=== PATIENT | male | born 1965 | race Caucasian/White ===

== ENCOUNTER → 2017-08-28 | Outpatient (CLI) | payer MEDICARE, OTHER ==
[2017-08-27 15:56] VITALS: BMI 30.4
[2017-08-28 13:49] VITALS: BP 133/86; PULSE 74
--- NOTE | 2017-08-28 14:16 | P.PN ---
Progress Note - Text Progress Note Date: 08/28/17 Patient returns for followup for chronic back pain with radiation in right buttock and RLE. Patient underwent R lumbar RFA in 2011 with 80% relief of his back pain for > 2 years and returns for possible repeat procedure. He indicates that the pain is worst in his right buttock with some radiation down RLE but mostly stopping above the right knee posteriorly. Patient continues on no regular medications for pain. Patient denies adverse drug effects from medications. Today, pt denies new-onset weakness, bowel/bladder incontinence, or any other signs or symptoms of cauda equina syndrome. There are no signs of acute intoxication, and no indications of medication diversion or overuse. In addition to above, 13-point review of systems is also negative for chest pain , shortness of breath, changes in vision, changes in hearing, new onset weakness , abdominal pain, diarrhea, extreme fatigue, malaise, fever, skin changes, homicidal or suicidal ideation, or bowel or bladder incontinence. Vital Signs: Reviewed in EMR Gen: WDWN, AAOx3, NAD HEENT: NCAT, EOMI, hearing grossly normal Pulm: resp unlabored Abd: soft, NT, ND Neck: supple, trachea midline ROM in flexion lumbar spine: reduced ROM in extension lumbar spine: reduced Lumbar paravertebral tenderness: + Facet loading: + bilateral, R >> L SI joint tenderness: + R side Maximiliano's test: + R side Straight leg raise: neg Neuro: CN II-XII grossly intact, muscle strength lower extremities PRESERVED Imaging: Reviewed in EMR Assessment: 1. lumbar spondylosis without myelopathy 2. AML, in remission 3. 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 chronic pain syndrome Plan: 1. Explanation: Opioid and psychological risk scores were reviewed. Diagnoses , prognoses, and multiple treatment options including but not limited to physical therapy, interventional therapies, adjuvant medical therapies, narcotic medication therapies, and surgery were discussed with the patient and all questions were answered to the patient's satisfaction. 2. Opioid agreement: no opioids prescribed today 3. Counseling: The patient was counseled extensively on SMOKING CESSATION, BODY MASS INDEX, EXERCISE. Specifically, the patient was instructed regarding the importance of smoking cessation, weight control, and exercise in the context of both chronic pain and overall health. 4. Procedures: R lumbar RFA L3-S1 JONNIE 5. Consultations: None 6. Investigations: None 7. Medications: none prescribed 8. Disposition: f/u for procedure as scheduled PQRS measures: 1-Patient's medications are documented in the chart. 2-Tobacco use is negative 3-Patient has not had a pneumococcal vaccine. 4-Advanced care planning discussed, patient unable to give. 5-Opioid contract NOT signed with the patient. 6-Pain positive, follow-up visit or procedure scheduled 7-Patient's blood pressure measured and documented, and patient will follow up with the primary care due to hypertension. 8-Patient's weight was measured, and body mass index ABOVE the normal limits, and counseling was done. Patient instructed to follow up with PCP. 9-Patient WAS NOT identified as an unhealthy alcohol user.
== END | disposition home or self-care (01) ==
LOC: PNWHC3 13:28
PROVIDERS: ATTEND Anesthesiology
DX: M47.816 Spondylosis without myelopathy or radiculopathy, lumbar region (principal); C92.01 Acute myeloblastic leukemia, in remission; G89.4 Chronic pain syndrome; G62.9 Polyneuropathy, unspecified
CPT/HCPCS: 99211

== ENCOUNTER → 2017-09-27 | Outpatient (CLI) | payer MEDICARE, OTHER ==
[2017-09-27 07:47] LABS: HCT 44.3 % (39.0-53.0); HGB 15.2 gm/dL (13.0-17.5); MCH 30.3 pg (25.0-35.0); MCHC 34.3 g/dL (31.0-37.0); MCV 88.5 fL (80.0-100.0); Mean Platelet Volume 6.7; Platelet Count 203 k/uL (150-450); RBC 5.01 m/uL (4.30-5.90); RDW 13.1 % (11.5-15.5); WBC 6.1 k/uL (3.8-10.6)
[2017-09-27 09:19] LABS: ALT 46 U/L (21-72); AST 16 U/L (17-59); Albumin 4.2 g/dL (3.5-5.0); Alkaline Phosphatase 75 U/L (38-126); Anion Gap 8 mmol/L; Blood Urea Nitrogen 17 mg/dL (9-20); Calcium 9.4 mg/dL (8.4-10.2); Carbon Dioxide 32 mmol/L (22-30); Chloride 103 mmol/L (98-107); Cholesterol 146 mg/dL (<200); Glucose 109 mg/dL (74-99); HDL Cholesterol 49 mg/dL (40-60); LDL Cholesterol,Calculated 76 mg/dL (0-99); Potassium 4.6 mmol/L (3.5-5.1); Sodium 143 mmol/L (137-145); Total Bilirubin 0.4 mg/dL (0.2-1.3); Total Protein 6.7 g/dL (6.3-8.2); Triglycerides 104 mg/dL (<150)
[2017-09-27 09:46] LABS: Prostate Specific Antigen 0.52 ng/mL (0.00-4.00)
== END | disposition home or self-care (01) ==
LOC: LABWHC1 07:20
PROVIDERS: ATTEND Family Medicine
DX: Z00.01 Encounter for general adult medical examination with abnormal findings (principal)
CPT/HCPCS: 36415; 80053; 80061; 84153; 85027

== ENCOUNTER 2017-10-08 11:16 | Emergency (ER) | payer MEDICARE, OTHER ==
--- NOTE | 2017-10-08 11:35 | ED ---
General Adult HPI - General Chief complaint: Chest Pain Stated complaint: Chest Pain Time Seen by Provider: 10/08/17 11:26 Source: patient, family, RN notes reviewed, old records reviewed Mode of arrival: wheelchair Limitations: physical limitation - History of Present Illness Initial comments: This is a 52-year-old male to the ER for evaluation. Patient's complaint for back pain. Patient's sent to ER status post anesthesia, patient did have anesthesia for back pain earlier today, he was given Versed and fentanyl, he began x-rays bradycardia heart palpitations. No pain chest pain. - Related Data Home Medications Medication Instructions Recorded Confirmed Cyclobenzaprine [Flexeril] 10 mg PO HS PRN 09/18/14 10/08/17 Omeprazole [PriLOSEC] 20 mg PO BID 09/18/14 10/08/17 Cholecalciferol [Vitamin D3] 5,000 unit PO QAM 02/06/15 10/08/17 Lisinopril [Zestril] 10 mg PO QAM 04/12/15 10/08/17 ALPRAZolam [Xanax] 0.5 mg PO BID PRN 08/27/15 10/08/17 Gabapentin [Neurontin] 300 mg PO BID 08/27/15 10/08/17 amLODIPine [Norvasc] 10 mg PO QAM 08/27/15 10/08/17 Furosemide [Lasix] 20 mg PO QAM PRN 12/04/15 10/08/17 Ibuprofen [Motrin] 600 mg PO TID PRN 12/04/15 10/08/17 Acetaminophen with Codeine 1 tab PO Q6HR PRN 08/27/17 10/08/17 [Tylenol w/codeine #3] Naproxen Sodium [Aleve] 440 mg PO DAILY 08/27/17 10/08/17 Hydrocodone/Acetaminophen [[place] 1 tab PO Q4HR PRN 10/08/17 10/08/17 5-325] Allergies Allergy/AdvReac Type Severity Reaction Status Date / Time Penicillins Allergy Severe Rash/Hives, Verified 10/08/17 11:25 Nausea moxifloxacin HCl AdvReac Intermediate Nausea Verified 10/08/17 11:25 [From Avelox] cephalexin monohydrate AdvReac c-diff Verified 10/08/17 11:25 [From Keflex] MOLD AdvReac Severe Dyspnea, Uncoded 10/08/17 11:23 Watery Eyes, Runny Nose mushroom AdvReac Dyspnea Uncoded 10/08/17 11:23 Review of Systems ROS Statement: Those systems with pertinent positive or pertinent negative responses have been documented in the HPI. ROS Other: All systems not noted in ROS Statement are negative. Past Medical History Past Medical History: Cancer, GERD/Reflux, Hyperlipidemia, Hypertension, Myocardial Infarction ([place]), Osteoarthritis (OA) Additional Past Medical History / Comment(s): migraines, heart murmer from , pain in rt hip and down leg, lower legs and and ankles sensitive to touch, neuropathy rt left and foot, AML/APL leukemia, c-diff x 2 (approx 2014) Last Myocardial Infarction Date:: 2009 History of Any Multi-Drug Resistant Organisms: None Reported Date of last positivie culture/infection: 02/20/2013 MDRO Source:: stool Past Surgical History: Back Surgery, Cholecystectomy, Orthopedic Surgery Additional Past Surgical History / Comment(s): PICC line/removed, bone marrow biopsy X 5, sinus surgery x 2, pilonidal cyst, rt shoulder rotator cuff, burak foot surgery, port right upper chest/later removed, Rt knee arthroscopy x 2 Past Anesthesia/Blood Transfusion Reactions: No Reported Reaction Past Psychological History: Anxiety Smoking Status: Former smoker Past Alcohol Use History: None Reported Past Drug Use History: None Reported - Past Family History Mother Family Medical History: Cancer Father Family Medical History: Coronary Artery Disease (CAD), Diabetes Mellitus General Exam Limitations: physical limitation General appearance: alert, in no apparent distress Head exam: Present: atraumatic, normocephalic, normal inspection Eye exam: Present: normal appearance, PERRL, EOMI. Absent: scleral icterus, conjunctival injection, periorbital swelling ENT exam: Present: normal exam, mucous membranes moist Neck exam: Present: normal inspection. Absent: tenderness, meningismus, lymphadenopathy Respiratory exam: Present: normal lung sounds bilaterally. Absent: respiratory distress, wheezes, rales, rhonchi, stridor Cardiovascular Exam: Present: regular rate, normal rhythm, normal heart sounds. Absent: systolic murmur, diastolic murmur, rubs, gallop, clicks GI/Abdominal exam: Present: soft, normal bowel sounds. Absent: distended, tenderness, guarding, rebound, rigid Extremities exam: Present: normal inspection, full ROM, normal capillary refill. Absent: tenderness, pedal edema, joint swelling, calf tenderness Back exam: Present: normal inspection Neurological exam: Present: alert, oriented X3, CN II-XII intact Psychiatric exam: Present: normal affect, normal mood Skin exam: Present: warm, dry, intact, normal color. Absent: rash Course Vital Signs 10/08/17 10/08/17 11:19 13:08 Temperature 96.9 F L Pulse Rate 60 92 Respiratory 18 17 Rate Blood Pressure 122/76 132/82 O2 Sat by Pulse 97 98 Oximetry - Reevaluation(s) Reevaluation #1: 10/08/17 11:34 Spoke with patient's anesthesiologist, aware of events surrounding patient's symptoms, bradycardia Reevaluation #2: 10/08/17 11:34 In speaking with patient at this point he does feel improved, heart rate is improving EKG Findings - EKG Comments: EKG Findings:: EKG shows sinus bradycardia rate of 59, CT 182, QRS 80, QTC 421 Medical Decision Making - Medical Decision Making 52 male the ER for evaluation. Patient's presenting with bradycardia secondary to medication, patient had chest pain as well, EKG troponin negative, heart rate in the 90s, patient can be discharged home - Lab Data Result diagrams: 10/08/17 11:30 10/08/17 11:30 Lab Results 10/08/17 10/08/17 10/08/17 Range/Units 11:30 11:30 11:30 WBC 5.6 (3.8-10.6) k/uL RBC 4.80 (4.30-5.90) m/uL Hgb 14.5 (13.0-17.5) gm/dL Hct 41.5 (39.0-53.0) % MCV 86.5 (80.0-100.0) fL MCH 30.2 (25.0-35.0) pg MCHC 34.8 (31.0-37.0) g/dL RDW 13.0 (11.5-15.5) % Plt Count 231 (150-450) k/uL Neutrophils % 59 % Lymphocytes % 34 % Monocytes % 5 % Eosinophils % 1 % Basophils % 1 % Neutrophils # 3.3 (1.3-7.7) k/uL Lymphocytes # 1.9 (1.0-4.8) k/uL Monocytes # 0.3 (0-1.0) k/uL Eosinophils # 0.1 (0-0.7) k/uL Basophils # 0.0 (0-0.2) k/uL PT (9.0-12.0) sec INR (<1.2) APTT (22.0-30.0) sec Sodium 142 (137-145) mmol/L Potassium 3.9 (3.5-5.1) mmol/L Chloride 106 (98-107) mmol/L Carbon Dioxide 26 (22-30) mmol/L Anion Gap 10 mmol/L BUN 19 (9-20) mg/dL Creatinine 0.87 (0.66-1.25) mg/dL Est GFR (MDRD) Af Amer >60 (>60 ml/min/1.73 sqM) Est GFR (MDRD) Non-Af >60 (>60 ml/min/1.73 sqM) Glucose 98 (74-99) mg/dL Calcium 9.2 (8.4-10.2) mg/dL Magnesium 1.8 (1.6-2.3) mg/dL Total Bilirubin 0.7 (0.2-1.3) mg/dL AST 24 (17-59) U/L ALT 29 (21-72) U/L Alkaline Phosphatase 84 (38-126) U/L Total Creatine Kinase 266 H (55-170) U/L CK-MB (CK-2) 1.7 (0.0-2.4) ng/mL CK-MB (CK-2) Rel Index 0.6 Troponin I <0.012 (0.000-0.034) ng/mL Total Protein 6.2 L (6.3-8.2) g/dL Albumin 3.9 (3.5-5.0) g/dL Lipase 131 (23-300) U/L TSH 2.490 (0.465-4.680) mIU/L 10/08/17 Range/Units 12:48 WBC (3.8-10.6) k/uL RBC (4.30-5.90) m/uL Hgb (13.0-17.5) gm/dL Hct (39.0-53.0) % MCV (80.0-100.0) fL MCH (25.0-35.0) pg MCHC (31.0-37.0) g/dL RDW (11.5-15.5) % Plt Count (150-450) k/uL Neutrophils % % Lymphocytes % % Monocytes % % Eosinophils % % Basophils % % Neutrophils # (1.3-7.7) k/uL Lymphocytes # (1.0-4.8) k/uL Monocytes # (0-1.0) k/uL Eosinophils # (0-0.7) k/uL Basophils # (0-0.2) k/uL PT 10.0 (9.0-12.0) sec INR 1.0 (<1.2) APTT 21.8 L (22.0-30.0) sec Sodium (137-145) mmol/L Potassium (3.5-5.1) mmol/L Chloride (98-107) mmol/L Carbon Dioxide (22-30) mmol/L Anion Gap mmol/L BUN (9-20) mg/dL Creatinine (0.66-1.25) mg/dL Est GFR (MDRD) Af Amer (>60 ml/min/1.73 sqM) Est GFR (MDRD) Non-Af (>60 ml/min/1.73 sqM) Glucose (74-99) mg/dL Calcium (8.4-10.2) mg/dL Magnesium (1.6-2.3) mg/dL Total Bilirubin (0.2-1.3) mg/dL AST (17-59) U/L ALT (21-72) U/L Alkaline Phosphatase (38-126) U/L Total Creatine Kinase (55-170) U/L CK-MB (CK-2) (0.0-2.4) ng/mL CK-MB (CK-2) Rel Index Troponin I (0.000-0.034) ng/mL Total Protein (6.3-8.2) g/dL Albumin (3.5-5.0) g/dL Lipase (23-300) U/L TSH (0.465-4.680) mIU/L - Radiology Data Radiology results: report reviewed (Chest x-ray is negative for acute disease), image reviewed Disposition Clinical Impression: Chest pain, Bradycardia Disposition: HOME SELF-CARE Condition: Good Instructions: Chest Pain (ED) Referrals: José Luis Posey MD [Primary Care Provider] - 1-2 days
[2017-10-08 12:13] LABS: ALT 29 U/L (21-72); AST 24 U/L (17-59); Albumin 3.9 g/dL (3.5-5.0); Alkaline Phosphatase 84 U/L (38-126); Anion Gap 10 mmol/L; Blood Urea Nitrogen 19 mg/dL (9-20); Calcium 9.2 mg/dL (8.4-10.2); Carbon Dioxide 26 mmol/L (22-30); Chloride 106 mmol/L (98-107); Glucose 98 mg/dL (74-99); Lipase 131 U/L (23-300); Magnesium 1.8 mg/dL (1.6-2.3); Potassium 3.9 mmol/L (3.5-5.1); Sodium 142 mmol/L (137-145); Total Bilirubin 0.7 mg/dL (0.2-1.3); Total Protein 6.2 g/dL (6.3-8.2)
[2017-10-08 12:20] LABS: Basophils % (A) 1 %; Eosinophils # (A) 0.1 k/uL (0-0.7); Eosinophils % (A) 1 %; HCT 41.5 % (39.0-53.0); HGB 14.5 gm/dL (13.0-17.5); Lymphocytes # (A) 1.9 k/uL (1.0-4.8); Lymphocytes % (A) 34 %; MCH 30.2 pg (25.0-35.0); MCHC 34.8 g/dL (31.0-37.0); MCV 86.5 fL (80.0-100.0); Mean Platelet Volume 6.4; Monocytes # (A) 0.3 k/uL (0-1.0); Monocytes % (A) 5 %; Neutrophils # (A) 3.3 k/uL (1.3-7.7); Neutrophils % (A) 59 %; Platelet Count 231 k/uL (150-450); WBC 5.6 k/uL (3.8-10.6)
[2017-10-08 12:27] LABS: Creatine Kinase 266 U/L (55-170)
[2017-10-08 12:38] LABS: Creatine Kinase MB 1.7 ng/mL (0.0-2.4); Troponin I <0.012 ng/mL (0.000-0.034)
[2017-10-08 13:27] LABS: Partial Thromboplastin Time 21.8 sec (22.0-30.0)
[2017-10-08] MEDS ORDERED: MORPHINE SULFATE 2 MG/ML SYRINGE IVP ONE (14:11)
[2017-10-08 14:39] VITALS: BP 134/73; PULSE 91; RESP 16; TEMP 97.9
--- NOTE | 2017-10-08 15:22 | XR ---
EXAMINATION TYPE: XR chest 2V DATE OF EXAM: 10/08/2017 COMPARISON: 08/27/2015 HISTORY: Bradycardia. TECHNIQUE: Frontal and lateral views of the chest are obtained. FINDINGS: There is no focal air space opacity, pleural effusion, or pneumothorax seen. The cardiac silhouette size is within normal limits. The osseous structures are intact. Mild multilevel degener ative changes of the thoracic spine are noted. IMPRESSION: No acute cardiopulmonary process.
== END 2017-10-08 14:57 | disposition home or self-care (01) ==
LOC: EC 11:16
DX: R07.9 Chest pain, unspecified (principal); R00.1 Bradycardia, unspecified; I10 Essential (primary) hypertension; I25.2 Old myocardial infarction; M19.90 Unspecified osteoarthritis, unspecified site; K21.9 Gastro-esophageal reflux disease without esophagitis; Z85.6 Personal history of leukemia; Z87.891 Personal history of nicotine dependence; Z88.0 Allergy status to penicillin; Z91.018 Allergy to other foods; Z91.09 Other allergy status, other than to drugs and biological substances; Z88.1 Allergy status to other antibiotic agents; Z79.1 Long term (current) use of non-steroidal anti-inflammatories (NSAID); Z79.899 Other long term (current) drug therapy
CPT/HCPCS: 36415; 93005; 80053; 82550; 82553; 83690; 83735; 84443; 84484; 85025; 85610; 85730; 71046; 99285; 96374; J2270; 64635; 64636; 99152

== ENCOUNTER → 2017-10-08 | Day surgery (SDC) | payer MEDICARE, OTHER ==
[~2017-10-08] MED LIST: IV FLUID CONTINUATION 1,000 ML IV ONE; LACTATED RINGERS 1,000 ML IV SCH; LIDOCAINE 1% 20 ML VIAL (10MG/ML) FOR IV START INTRADERMA ONE; ePHEDrine 50 MG/ML 1 ML AMP IVP ONE
[2017-10-08 09:15] VITALS: TEMP 97.8
--- NOTE | 2017-10-08 10:03 | P.PCN ---
Date of Procedure: 10/08/17 Surgeon: Feliciano Lynn Pathology: none sent Condition: stable Disposition: PACU Description of Procedure: PREOPERATIVE DIAGNOSIS: Lumbar spondylosis without myelopathy and facet arthropathy POSTOPERATIVE DIAGNOSIS: Lumbar spondylosis without myelopathy and facet arthropathy PROCEDURES: Right Radiofrequency thermocoagulation, L3-L4, L4-L5, and L5-S1 medial branch, with fluoroscopic guidance. ANESTHESIA: 1% lidocaine plain; Conscious sedation with versed/fentanyl EBL: Minimal PROCEDURE INDICATION: The patient with low back pain secondary to lumbar arthropathy who had more than 50% relief of pain with previous diagnostic lumbar medial branch block with bupivacaine. Patient presents for RFA today; no use of blood thinners. PROCEDURE DESCRIPTION / TECHNIQUE: The patient was seen and identified in the preoperative area. Risks, benefits, complications, and alternatives were discussed with the patient (including but not limited to incomplete pain relief , bleeding, infection, nerve damage, and allergies to medications), the patient agreed to proceed with the procedure and signed the consent after all questions were answered. Patient was taken to the OR and time out was completed to verify proper patient , position, laterality of pain, and allergies. Pt was placed in the prone position. IV was started. Vital signs remained stable throughout the procedure. A pillow was placed under the patients chest to decrease lordosis. The lumbosacral area was prepped and draped in the usual sterile fashion. Vital signs were closely monitored during the procedure. Conscious sedation was used during the procedure to decrease patients anxiety. Using AP and then oblique fluoroscopy, the eye of the Adria dog corresponding to the connection between the superior and transverse articular processes of right L3, L4, L5 and top of the sacrum were identified, marked, and localized with 1% lidocaine. Subsequently, a 20 gauge, 100-mm radiofrequency cannula with a 10-mm active tip was advanced guided by fluoroscopy to each of the eyes of the Adria dog at the levels of all four medial branches. Each site then underwent sensory testing at 50 Hz and 0 to 1 volt and motor testing at 2 Hz and 0 to 3 volt with local stimulation, but no radicular symptoms down the legs. Thereafter all four medial branch sites underwent radiofrequency thermocoagulation at 80 degrees Celsius for 90 seconds after injecting 0.5 ml of PF lidocaine 1%. After thermocoagulation, 1 ml of the block solution containing Kenalog 40 mg and 2 mL of preservative-free normal saline was injected at all four medial branch levels after negative aspiration of CSF and blood and with no paresthesias. Cannulas were retracted while injecting lidocaine 1% until the needles were removed. At the end of the procedure, the skin was cleansed and bandages were applied. COMPLICATIONS: No acute complications. DISPOSITION / PLANS: The patient was placed in a supine position and transferred to the recovery area in a stable condition for observation and was discharged from the recovery room after meeting discharge criteria. Home discharge instructions given to the patient by the staff. The patient was reexamined prior to discharge. The patient will schedule a follow up in the clinic in 2-4 weeks to discuss left sided RFA vs. SIJ injection.
[2017-10-08 10:32] VITALS: PULSE 65
[2017-10-08 11:05] VITALS: BP 107/71; RESP 16
--- NOTE | 2017-10-08 11:12 | P.PN ---
Progress Note - Text Progress Note Date: 10/08/17 At the end of the procedure, patient was complaining of mild chest pain 5/10, that improved when he moved from procedure table to hospital stretcher. He noted that he had history of a mild DC in 2009 and has had chest pain "on and off" again since then, and this was confirmed by his . 12-lead EKG ordered. In recovery room, patient became diaphoretic, cold, clammy, and lethargic. EKG showed marked sinus bradycardia, HR 42. NIBP 86/52. Patient placed in trendelenburg position and 10 mg IV ephedrine administered. BP improved to 107/71. Patient will be transferred to ER for further management, physician-physician report given by myself.
--- NOTE | 2017-10-08 13:49 | FL ---
Fluoroscopy HISTORY: Pain 6 seconds fluoroscopy time supplied to the referring clinician. 3 intraoperative C-arm images docume nt the procedure. See dictated report from anesthesia.
== END ==
LOC: ORPAIN 08:45
PROVIDERS: ATTEND Anesthesiology
DX: G89.29 Other chronic pain (principal); M47.816 Spondylosis without myelopathy or radiculopathy, lumbar region; I10 Essential (primary) hypertension; F41.9 Anxiety disorder, unspecified; K21.9 Gastro-esophageal reflux disease without esophagitis; I25.2 Old myocardial infarction; R00.1 Bradycardia, unspecified; Z88.1 Allergy status to other antibiotic agents; Z88.0 Allergy status to penicillin; Z91.018 Allergy to other foods; Z91.09 Other allergy status, other than to drugs and biological substances
CPT/HCPCS: 93005; 64635; 64636 ×2; J2250; J3301; J3010; 99152

== ENCOUNTER 2017-11-13 15:31 | Observation (INO) | payer MEDICARE, OTHER ==
[2017-11-13 16:03] LABS: Basophils # (A) 0.1 k/uL (0-0.2); Basophils % (A) 1 %; Eosinophils # (A) 0.1 k/uL (0-0.7); Eosinophils % (A) 1 %; HCT 44.5 % (39.0-53.0); Lymphocytes # (A) 4.4 k/uL (1.0-4.8); Lymphocytes % (A) 43 %; MCH 29.8 pg (25.0-35.0); MCHC 33.6 g/dL (31.0-37.0); MCV 88.6 fL (80.0-100.0); Mean Platelet Volume 6.2; Monocytes # (A) 0.6 k/uL (0-1.0); Monocytes % (A) 6 %; Neutrophils # (A) 4.8 k/uL (1.3-7.7); Neutrophils % (A) 47 %; Platelet Count 295 k/uL (150-450); RBC 5.02 m/uL (4.30-5.90); RDW 13.1 % (11.5-15.5); WBC 10.2 k/uL (3.8-10.6)
--- NOTE | 2017-11-13 16:04 | XR ---
EXAMINATION TYPE: XR chest 2V DATE OF EXAM: 11/13/2017 COMPARISON: 10/08/2017 INDICATION: Chest pain and congestion recent pneumonia TECHNIQUE: Frontal and lateral views of the chest are obtained. FINDINGS: The heart size is normal. The pulmonary vasculature is normal. The lungs are clear. IMPRESSION: 1. No acute pulmonary process.
[2017-11-13 16:12] LABS: ALT 29 U/L (21-72); AST 12 U/L (17-59); Albumin 4.2 g/dL (3.5-5.0); Alkaline Phosphatase 89 U/L (38-126); Anion Gap 13 mmol/L; Blood Urea Nitrogen 17 mg/dL (9-20); Calcium 9.5 mg/dL (8.4-10.2); Carbon Dioxide 28 mmol/L (22-30); Chloride 99 mmol/L (98-107); Glucose 87 mg/dL (74-99); Magnesium 1.8 mg/dL (1.6-2.3); Potassium 3.3 mmol/L (3.5-5.1); Sodium 140 mmol/L (137-145); Total Bilirubin 0.5 mg/dL (0.2-1.3); Total Protein 6.6 g/dL (6.3-8.2)
[2017-11-13] MEDS ORDERED: IPRATROPIUM-ALBUTEROL 3 ML NEB INHALATION STA (16:12)
[2017-11-13] MEDS ORDERED: NITROGLYCERIN OINT 1 INCH/GM PACKET TOPICAL STA (16:13)
[2017-11-13] MEDS ORDERED: methylPREDNISolone SOD SUCCI 125 MG/2 ML VIAL IV STA (16:18)
--- NOTE | 2017-11-13 16:18 | ED ---
Chest Pain HPI - General Chief Complaint: Chest Pain Stated Complaint: Chest Pain Time Seen by Provider: 11/13/17 15:55 Source: patient, EMS Mode of arrival: EMS Limitations: no limitations - History of Present Illness Initial Comments: This 52-year-old white male presents with a complaint of some chest pain. He describes it as a left sided pressure pain at times and sharp pain at times. It apparently has been radiating down his left arm. It is intermittent in nature over the past couple of weeks. He states that it was much worse today and now radiated down his left arm. He denies any known definite coronary artery disease. He is told that he might of had a silent myocardial infarction 7 years ago. He apparently was here 2 weeks ago for somewhat similardischarged and followed up with his junior recruiter. They put him through a stress test but this apparently was negative. They still think that he potentially could have some blockage. He is supposed to undergo an EGD and then possibly a heart catheterization in the future. He also complains of some shortness of breath and cough. He's had this for the past week. He is currently on day 8 of with some antibiotics and these have not seemed to help. He also is taking breathing treatments without any significant relief. He does relate a history of a some type of leukemia and this apparently is in remission for the last 2 years. No other complaints or modifying factors. - Related Data Home Medications Medication Instructions Recorded Confirmed Cyclobenzaprine [Flexeril] 10 mg PO HS PRN 09/18/14 11/13/17 Omeprazole [PriLOSEC] 20 mg PO BID 09/18/14 11/13/17 Cholecalciferol [Vitamin D3] 5,000 unit PO QAM 02/06/15 11/13/17 Lisinopril [Zestril] 10 mg PO QAM 04/12/15 11/13/17 ALPRAZolam [Xanax] 0.5 mg PO BID PRN 08/27/15 11/13/17 Gabapentin [Neurontin] 300 mg PO BID 08/27/15 11/13/17 amLODIPine [Norvasc] 10 mg PO QAM 08/27/15 11/13/17 Furosemide [Lasix] 20 mg PO QAM PRN 12/04/15 11/13/17 Ibuprofen [Motrin] 600 mg PO TID PRN 12/04/15 11/13/17 Naproxen Sodium [Aleve] 440 mg PO DAILY 08/27/17 11/13/17 Doxycycline Monohydrate [Monodox] 100 mg PO Q12HR 11/13/17 11/13/17 traMADol HCL [Ultram] 50 mg PO HS PRN 11/13/17 11/13/17 Allergies Allergy/AdvReac Type Severity Reaction Status Date / Time Penicillins Allergy Severe Rash/Hives, Verified 11/13/17 15:53 Nausea moxifloxacin HCl AdvReac Intermediate Nausea Verified 11/13/17 15:53 [From Avelox] cephalexin monohydrate AdvReac c-diff Verified 11/13/17 15:53 [From Keflex] MOLD AdvReac Severe Dyspnea, Uncoded 10/08/17 11:23 Watery Eyes, Runny Nose mushroom AdvReac Dyspnea Uncoded 10/08/17 11:23 Review of Systems ROS Statement: Those systems with pertinent positive or pertinent negative responses have been documented in the HPI. ROS Other: All systems not noted in ROS Statement are negative. Past Medical History Past Medical History: Cancer, GERD/Reflux, Hyperlipidemia, Hypertension, Myocardial Infarction ([place]), Osteoarthritis (OA) Additional Past Medical History / Comment(s): migraines, heart murmer from , pain in rt hip and down leg, lower legs and and ankles sensitive to touch, neuropathy rt left and foot, AML/APL leukemia, c-diff x 2 (approx 2014) Last Myocardial Infarction Date:: 2009 History of Any Multi-Drug Resistant Organisms: None Reported, C-DIFF Date of last positivie culture/infection: 02/20/2013 MDRO Source:: stool Past Surgical History: Back Surgery, Cholecystectomy, Orthopedic Surgery Additional Past Surgical History / Comment(s): PICC line/removed, bone marrow biopsy X 5, sinus surgery x 2, pilonidal cyst, rt shoulder rotator cuff, burak foot surgery, port right upper chest/later removed, Rt knee arthroscopy x 2 Past Anesthesia/Blood Transfusion Reactions: No Reported Reaction Past Psychological History: Anxiety Smoking Status: Former smoker Past Alcohol Use History: None Reported Past Drug Use History: None Reported - Past Family History Mother Family Medical History: Cancer Father Family Medical History: Coronary Artery Disease (CAD), Diabetes Mellitus General Exam - General Exam Comments Initial Comments: GENERAL: The patient is well nourished and well hydrated. VITAL SIGNS: Heart rate, blood pressure, respiratory rate reviewed as recorded in nurse's notes. EYES: Pupils are round and reactive. Extraocular movements are intact. No conjunctival / lid redness or swelling. ENT: No external evidence of injury, swelling, or ecchymosis. Airway is patent. Throat is clear. NECK: Nontender. No swelling or evidence of injury. No subcutaneous emphysema. Trachea is midline. No thyroid mass. HEART: Regular rate and rhythm. Good peripheral pulses. LUNGS/CHEST: Wheezing is noted to bilateral chest. No ecchymosis, subcutaneous emphysema, or tenderness. ABDOMEN: Abdomen soft without tenderness. No palpable masses or organomegaly. No peritoneal signs. No abdominal wall swelling or ecchymosis. EXTREMITIES: No extremity tenderness. Normal muscle tone and function. No thoracolumbar tenderness. NEUROLOGIC: Sensation is grossly intact. Cranial nerve exam reveals face is symmetrical, tongue is midline, speech is clear. SKIN: No abrasions or ecchymosis is noted. No induration or masses noted. PSYCHIATRIC: Alert and oriented. Appropriate behavior and judgment. Limitations: no limitations Course Vital Signs 11/13/17 11/13/17 11/13/17 15:39 16:25 16:39 Temperature 97.9 F Pulse Rate 63 64 76 Respiratory 16 16 Rate Blood Pressure 129/69 125/7 O2 Sat by Pulse 100 98 Oximetry 11/13/17 16:42 Temperature Pulse Rate 75 Respiratory Rate Blood Pressure O2 Sat by Pulse Oximetry Chest Pain [facility] - MDM The patient is seen and examined. All diagnostics are reviewed. The EKG shows a normal sinus rhythm at a rate of 64. There is no acute ST-T wave changes identified. The AL interval is 170, QRS duration is 86, and the QTC intervals 422. The patient did receive aspirin by EMS. He also received sublingual nitroglycerin with significant relief of his chest pain. He started on some Nitropaste currently. He also receives a double DuoNeb breathing treatment as well as some Solu-Medrol as her significant bronchospasm noted. The possibility of an exacerbation of COPD and her bronchitis is suspected. The patient had a chest x-ray which did not show any acute process. The laboratory overall is unremarkable. It is felt as though the possibility acute coronary syndrome certainly is possible and that he would benefit from admission to the hospital and further Cardiologic evaluation. Case is discussed with Kasey on- call for internal medicine and she does accept patient for admission. Disposition Clinical Impression: Unstable angina, Chest pain, Bronchospasm, COPD exacerbation Disposition: ADMITTED IP TO THIS HOSP Condition: Fair Referrals: José Luis Posey MD [Primary Care Provider] - 1-2 days Time of Disposition: 17:14 Decision Date: 11/13/17 Decision Time: 17:14
[2017-11-13 16:23] LABS: Creatine Kinase 52 U/L (55-170)
[2017-11-13 16:35] LABS: Prothrombin Time 9.8 sec (9.0-12.0)
[2017-11-13 16:36] LABS: Creatine Kinase MB 0.6 ng/mL (0.0-2.4); Troponin I <0.012 ng/mL (0.000-0.034)
[2017-11-13] MEDS ORDERED: NITROGLYCERIN SL TABS 0.4 MG TAB SUBLINGUAL PRN (17:15)
[2017-11-13] MEDS ORDERED: traMADol 50 MG TAB PO PRN (17:18)
[2017-11-13] MEDS ORDERED: IBUPROFEN 600 MG TAB PO PRN (17:18)
[2017-11-13] MEDS ORDERED: ALPRAZolam 0.5 MG TAB PO PRN (17:18)
[2017-11-13] MEDS ORDERED: FUROSEMIDE 20 MG TAB PO PRN (17:18)
[2017-11-13] MEDS ORDERED: CYCLOBENZAPRINE 10 MG TAB PO PRN (17:18)
[2017-11-13] MEDS: IPRATROPIUM-ALBUTEROL 3 ML NEB INHALATION SCH ×2 (18:56→23:05)
[2017-11-13] MEDS ORDERED: ONDANSETRON 4 MG/2 ML VIAL IVP PRN (19:29)
[2017-11-13] MEDS: methylPREDNISolone SOD SUCCI 125 MG/2 ML VIAL IV SCH (21:04)
[2017-11-13] MEDS: DOXYCYCLINE 50 MG CAP PO SCH (21:04)
[2017-11-13] MEDS: GABAPENTIN 300 MG CAP PO SCH (21:04)
[2017-11-13] MEDS: PANTOPRAZOLE 40 MG TABLET PO SCH (21:04)
[2017-11-13 21:44] LABS: Creatine Kinase 46 U/L (55-170)
[2017-11-13 21:58] LABS: Creatine Kinase MB 0.4 ng/mL (0.0-2.4); Troponin I <0.012 ng/mL (0.000-0.034)
[2017-11-13] MEDS: NITROGLYCERIN OINT 1 INCH/GM PACKET TOPICAL SCH (22:40)
--- NOTE | 2017-11-13 23:44 | HP ---
HISTORY AND PHYSICAL CHIEF COMPLAINT: Chest pain. HISTORY OF PRESENT ILLNESS: This 52-year-old gentleman with a past medical history of GERD, acute myeloid leukemia, hypertension, hyperlipidemia, silent myocardial infarction, history of DJD, migraine being followed by Dr. Posey in the outpatient setting is having on and off chest pain for the last several days. The patient apparently had a recent stress test by the patient's software support technician, Dr. Jauregui, who had recommended EGD and subsequently possibly cardiac catheterization, which is not available at this time. Currently the patient has the pain in the left side of the chest and central part of chest which is heavy in character, recurrent, radiating to the left arm and the patient came to [facility], admitted for further evaluation and treatment. There is there is no history of any fever, rigors. No history of headache loss of consciousness, seizures. PAST MEDICAL HISTORY: History of GERD, hypertension, hyperlipidemia, history of myocardial infarction, history of migraine. MEDICATIONS PRIOR TO ADMISSION: Include home medications are: 1. Ultram 50 mg q.h.s. p.r.n. 2. Norvasc 10 mg p.o. daily. 3. Prilosec 20 mg p.o. b.i.d. 4. Aleve 440 mg p.o. daily. 5. Zestril 10 mg p.o. daily. 6. Motrin 600 mg p.o. t.i.d. p.r.n. 7. Neurontin 300 mg p.o. b.i.d. 8. Lasix 20 mg daily. 9. Monodox 100 mg p.o. b.i.d. 10.Flexeril 10 mg q.h.s. 11.Vitamin D3 5000 p.o. daily. 12.Xanax 0.5 b.i.d. p.r.n. ALLERGIES: Are PENICILLIN, AVELOX, KEFLEX, MOLD and MUSHROOMS. FAMILY HISTORY: History of brain cancer in the family. 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 Previous history of smoking. No history of current smoking or alcohol intake. REVIEW OF SYSTEMS: ENT: No diminished hearing, diminished vision. CARDIOVASCULAR: As mentioned earlier. RESPIRATORY: As mentioned earlier. GI: No nausea or vomiting. : No dysuria. NERVOUS: No numbness or weakness. ALLERGY/IMMUNOLOGY: No asthma or hay fever. MUSCULOSKELETAL: As mentioned earlier. HEMATOLOGY/ONCOLOGY: As mentioned earlier. ENDOCRINE: No history of diabetes, hypothyroidism. CONSTITUTIONAL: As mentioned earlier. DERMATOLOGY: Negative. RHEUMATOLOGY: Negative. PSYCHIATRY: As mentioned earlier. PHYSICAL EXAMINATION: The patient is alert and oriented x3. Pulse is 81, blood pressure 124/71, respirations 18, temperature 97.7, pulse ox 92% on room air. HEENT: Conjunctivae normal. Oral mucosa moist. NECK: No jugular venous distention. No thyroid enlargement or carotid bruits. CARDIOVASCULAR: S1, S2 normal. No S3. No S4. RESPIRATORY: Breath sounds diminished in the bases. No rhonchi. No crackles. ABDOMEN: Soft, nontender. No mass palpable. LEGS: No edema. No swelling. NERVOUS SYSTEM: Higher functions as mentioned earlier. Moves all 4 limbs. No focal motor or sensory deficits. LYMPHATIC: No lymphadenopathy in neck or axillae. SKIN: No ulcer, rash or bleeding. JOINTS: No active deforming arthropathy. LABS: CBC within normal limits. Potassium 3.3. Otherwise, creatine kinase 52. Troponins are negative. ASSESSMENT: 1. Chest pain, possible unstable angina. 2. Hypokalemia. 3. History of hypertension. 4. Hyperlipidemia. 5. Silent myocardial infarction. 6. History of recent stress test. 7. History of migraine. 8. History of neuropathy. 9. History acute myeloid leukemia. 10.History of back surgery, degenerative joint disease. 11.History of anxiety. 12.Remote history of nicotine dependence. RECOMMENDATIONS AND DISCUSSION: In this 52-year-old gentleman who presented with multiple complex medical issues , we will monitor the patient closely. Continue the current medical management, continue symptomatic treatment. Otherwise at this time, I recommend ruling out myocardial infarction, acute unstable angina protocol, cardiology consultation. Will resume the home medications. Guarded prognosis because of multiple complex medical issues. Further recommendations to follow. A copy of this dictation will be forwarded to Dr. Posey, who is the primary physician. MMODL / IJN: [id number] / MTDD
[2017-11-14 03:46] LABS: Cholesterol 117 mg/dL (<200); HDL Cholesterol 60 mg/dL (40-60); LDL Cholesterol,Calculated 47 mg/dL (0-99); Triglycerides 50 mg/dL (<150)
[2017-11-14 03:51] LABS: Creatine Kinase 38 U/L (55-170)
[2017-11-14 04:05] LABS: Creatine Kinase MB 0.4 ng/mL (0.0-2.4); Troponin I <0.012 ng/mL (0.000-0.034)
[2017-11-14] MEDS: IPRATROPIUM-ALBUTEROL 3 ML NEB INHALATION SCH ×4 (04:29→17:11)
[2017-11-14] MEDS: NITROGLYCERIN OINT 1 INCH/GM PACKET TOPICAL SCH (05:37)
[2017-11-14] MEDS ORDERED: Potassium Replacement Protocol 1 EACH MISC MISCELLANE PRN (08:00)
[2017-11-14 08:07] VITALS: RESP 16; TEMP 98
[2017-11-14] MEDS ORDERED: ASPIRIN 325 MG TAB PO STA (08:41)
[2017-11-14] MEDS ORDERED: NITROGLYCERIN SL TABS 0.4 MG TAB SUBLINGUAL PRN (08:41)
[2017-11-14] MEDS ORDERED: ATORVASTATIN 80 MG TAB PO STA (08:41)
[2017-11-14] MEDS ORDERED: ALPRAZolam 0.25 MG TAB PO PRN (08:41)
[2017-11-14] MEDS ORDERED: SODIUM CHLORIDE 0.9% 1,000 ML in EMPTY BAG 1 BAG IV ONE (08:41)
[2017-11-14] MEDS ORDERED: ALPRAZolam 0.5 MG TAB PO PRN (08:41)
[2017-11-14] MEDS: GABAPENTIN 300 MG CAP PO SCH (08:47)
[2017-11-14] MEDS: PANTOPRAZOLE 40 MG TABLET PO SCH (08:48)
[2017-11-14] MEDS: POTASSIUM CHLORIDE ER 20 MEQ TAB.ER PO SCH ×2 (08:48→10:20)
[2017-11-14] MEDS ORDERED: MIDAZOLAM 2 MG/2 ML VIAL ONE (08:51)
[2017-11-14] MEDS ORDERED: LIDOCAINE 2% INJ 20 MG/ML (20 ML MDV) ONE (08:51)
[2017-11-14] MEDS ORDERED: fentaNYL (PF) 50 MCG/ML 2 ML AMP ONE (08:51)
[2017-11-14] MEDS ORDERED: NAPROXEN 250 MG TAB PO SCH (09:00)
[2017-11-14] MEDS ORDERED: CHOLECALCIFEROL 1,000 UNIT TAB PO SCH (09:00)
[2017-11-14] MEDS ORDERED: LISINOPRIL 10 MG TAB PO SCH (09:00)
[2017-11-14] MEDS ORDERED: amLODIPine 10 MG TAB PO SCH (09:00)
[2017-11-14] MEDS ORDERED: ASPIRIN 325 MG TAB PO SCH (09:00)
[2017-11-14] MEDS ORDERED: ENOXAPARIN 40 MG/0.4 ML SYRINGE SQ SCH (09:00)
[2017-11-14] MEDS ORDERED: fentaNYL (PF) 50 MCG/ML 2 ML AMP IVP ONE (09:18)
[2017-11-14] MEDS ORDERED: MIDAZOLAM 2 MG/2 ML VIAL IVP ONE (09:19)
[2017-11-14] MEDS ORDERED: LIDOCAINE 2% INJ 20 MG/ML SQ ONE (09:20)
[2017-11-14] MEDS ORDERED: IOHEXOL 350 MG/ML 125ML BOTTLE INJ ONE (09:34)
[2017-11-14] MEDS ORDERED: SODIUM CHLORIDE 0.9% 1,000 ML IV ONE (09:35)
[2017-11-14] MEDS ORDERED: RX INFO: IV CONTRAST WAS GIVEN 1 EACH MISC MISCELLANE PRN (09:36)
[2017-11-14] MEDS ORDERED: SODIUM CHLORIDE 0.9% 1,000 ML IV SCH (09:45)
[2017-11-14] MEDS: DOXYCYCLINE 50 MG CAP PO SCH (10:19)
[2017-11-14] MEDS: methylPREDNISolone SOD SUCCI 125 MG/2 ML VIAL IV SCH ×2 (10:20→18:28)
--- NOTE | 2017-11-14 10:27 | CONS ---
CONSULTATION CHIEF COMPLAINT: Chest pain. João is a 52-year-old gentleman with history of hypertension, arthritis, prior history of leukemia status post chemotherapy, who presented to hospital complaining of chest pain. He describes it as precordial chest pressure with left arm radiation, moderate intensity, came on at rest, associated with some diaphoresis. Pain gradually subsided. Since being admitted, he has remained pain-free. EKG does not reveal ischemic changes and cardiac enzymes have been negative. He has seen a senior devops engineer out of [place] and underwent a stress test a month ago, who apparently told him that he needs and EGD and if the EDG is negative, he might have to undergo cardiac catheterization. We are trying to obtain the stress test results. I spent a lot of time with the patient and talked to him about his treatment options including; a) waiting to undergo EGD and then pursue the earlier plans through his own senior devops engineer: b) to undergoing invasive angiography on this admission to rule out CAD. Understanding all these issues, patient wishes to have a cardiac cath done this morning. We will schedule the same. He understands risks, benefits. PAST MEDICAL HISTORY: Significant for hypertension, leukemia, chemotherapy, and GERD. CURRENT MEDICATIONS: Include Ultram, Norvasc 10 q. daily, Prilosec 20 b.i.d. Aleve, Zestril 10 q. daily, Motrin, Neurontin, Lasix, Flexeril, vitamin D, and Xanax. ALLERGIES: To PENICILLIN, KEFLEX, AVELOX, MOLD. FAMILY HISTORY: Negative for premature coronary artery disease. SOCIAL HISTORY: Negative for current smoking, ETOH abuse or drug abuse. REVIEW OF SYSTEMS: HEENT is unremarkable. CARDIAC: As described above. RESPIRATORY: Negative.. GI: Negative. GENITOURINARY: Negative. ALLERGY/IMMUNOLOGY: Negative. SKIN: Negative. MUSCULOSKELETAL: Significant for arthritis. PSYCHOSOCIAL: Negative. ENDOCRINE: Negative. DERMATOLOGY: Negative. CONSTITUTIONAL: Negative. ONCOLOGICAL: Negative. PHYSICAL EXAM: Comfortable at rest. Vital signs are stable. There is no jugular venous distention. Carotid upstroke is normal. There is no bruit. Chest exam reveals good air entry bilaterally. Heart exam reveals first and second heart sounds. No gallop. Abdomen is soft and nontender. Examination of extremities did not reveal edema. Peripheral pulses are felt. LABS: Show that 3 sets of troponins are negative. LDL cholesterol is normal. Creatinine is 0.8. Hemoglobin is 15. Peak potassium is low, but had been supplemented. ASSESSMENT: Unstable angina. PLAN: Patient will undergo cardiac catheterization this morning. He understands risks, benefits. NATTY / RODNEY: [id number] /
--- NOTE | 2017-11-14 10:27 | CC ---
CARDIAC CATHETERIZATION REPORT INDICATION: Unstable angina. PROCEDURE NOTE: After obtaining informed consent, left heart catheterization and coronary angiogram were performed via the right femoral artery using standard Lizy catheters. The patient tolerated the procedure well without any obvious immediate complications. FINDINGS: 1. HEMODYNAMICS: Left ventricular end-diastolic pressure is 8 to 10 mm. There is no significant gradient across the aortic valve. 2. LEFT VENTRICULOGRAM. The left ventriculogram is not performed. 3. ANGIOGRAPHIC DATA:. LEFT MAIN CORONARY ARTERY: Left main coronary artery is a normal-sized vessel and is free of stenosis. Divides into left anterior descending coronary artery and circumflex coronary artery. LAD and its branches and circumflex coronary artery and its branches are free of significant stenosis. Circumflex coronary artery is a small nondominant vessel. Right coronary artery is a large dominant vessel and is free of significant disease. CONCLUSIONS: 1. Normal coronary arteries. 2. Normal left ventricular end-diastolic pressure. PLAN: Patient's chest discomfort is probably noncardiac in origin and his management is going to be in the form of risk factor modification. The patient will follow up with his own dormitory maid in the outpatient setting and will proceed with the EGD that was contemplated earlier. Patient underwent femoral angiogram and Angio-Seal was deployed for hemostasis. He received moderate conscious sedation and total sedation time was 13 minutes. MMODL / IJN: [id number] /
--- NOTE | 2017-11-14 10:35 | ECHOF ---
Referral Reason:cp MEASUREMENTS -------- HEIGHT: 180.3 cm WEIGHT: 99.8 kg BP: 125/69 RVIDd: 3.0 cm (< 3.3) IVSd: 1.1 cm (0.6 - 1.1) LVIDd: 3.9 cm (3.9 - 5.3) LVPWd: 1.1 cm (0.6 - 1.1) IVSs: 1.6 cm LVIDs: 2.7 cm LVPWs: 1.6 cm LA Diam: 3.4 cm (2.7 - 3.8) LAESV Index (A-L): 18.15 ml/m Ao Diam: 3.1 cm (2.0 - 3.7) AV Cusp: 2.3 cm (1.5 - 2.6) MV EXCURSION: 15.184 mm (> 18.000) MV EF SLOPE: 66 mm/s (70 - 150) EPSS: 0.4 cm MV E Allan: 0.80 m/s MV DecT: 473 ms MV A Allan: 0.78 m/s MV E/A Ratio: 1.03 FINDINGS -------- Sinus rhythm. This was a technically good study. The left ventricular size is normal. There is borderline concentric left ventricular hypertrophy. Overall left ventricular systolic function is normal with, an EF between 60 - 65 %. The right ventricle is normal in size. Normal LA size by volume 22+/-6 ml/m2. The right atrium is normal in size. The aortic valve is trileaflet and appears structurally normal. The mitral valve leaflets are mildly thickened. There is trace mitral regurgitation. The tricuspid valve appears structurally normal. Trace/mild (physiologic) pulmonic regurgitation. The aortic root size is normal. Normal inferior vena cava with normal inspiratory collapse consistent with estimated right atrial pre ssure of 5 mmHg. There is no pericardial effusion. CONCLUSIONS -------- 1. Sinus rhythm. 2. This was a technically good study. 3. The left ventricular size is normal. 4. There is borderline concentric left ventricular hypertrophy. 5. Overall left ventricular systolic function is normal with, an EF between 60 - 65 %. 6. The right ventricle is normal in size. 7. Normal LA size by volume 22+/-6 ml/m2. 8. The right atrium is normal in size. 9. The aortic valve is trileaflet and appears structurally normal. 10. The mitral valve leaflets are mildly thickened. 11. There is trace mitral regurgitation. 12. The tricuspid valve appears structurally normal. 13. Trace/mild (physiologic) pulmonic regurgitation. 14. The aortic root size is normal. 15. Normal inferior vena cava with normal inspiratory collapse consistent with estimated right atrial pressure of 5 mmHg. 16. There is no pericardial effusion. HISTOLOGY TECHNICIAN: Mala Lai RDCS
[2017-11-14 16:24] VITALS: BP 106/67; PULSE 99
--- NOTE | 2017-11-14 21:48 | DS ---
DISCHARGE SUMMARY FINAL DIAGNOSES: 1. Chest pain, possibly musculoskeletal. Normal coronaries on the cardiac catheterization. 2. Hypokalemia. 3. History hypertension. 4. History of hyperlipidemia. 5. History silent myocardial infarction. 6. History of recent stress test. 7. History of migraine. 8. History of neuropathy. 9. History of acute myeloid leukemia. 10.History of back surgery, degenerative joint disease. 11.History of anxiety. 12.Remote history of nicotine dependence. CONDITION: The patient is being discharged in stable condition with guarded prognosis after being cleared by Cardiology. HISTORY OF PRESENT ILLNESS: This 52-year-old gentleman with a past medical history of multiple medical problems was admitted with chest pain. Myocardial infarction ruled out. Cardiology recommended cardiac catheterization, which showed normal coronary arteries. Potassium was corrected otherwise. PHYSICAL EXAMINATION: On exam, vital signs stable. Cardiovascular, S1 and S2 muffled. Abdomen soft. DISCHARGE INSTRUCTIONS: 1. Cardiac diet. 2. Activity limited. 3. Followup with Dr. Posey as advised. 4. Followup with the plant operator. MEDICATIONS: 1. Xanax 0.5 b.i.d. p.r.n. 2. Norvasc 10 mg p.o. q.a.m. 3. Vitamin D3m 5000 daily. 4. Flexeril 10 mg at bedtime. p.r.n. 5. Doxycycline 100 mg p.o. b.i.d. 6. Lasix 20 mg a.m. 7. Neurontin 300 mg p.o. b.i.d. 8. [place] 5 mg every 4 hours p.r.n. 9. Motrin 600 mg p.o. t.i.d. 10.Zestril 10 mg a.m. 11.Aleve 440 mg p.o. daily. 12.Prilosec 20 mg p.o. b.i.d. 13.Ultram 50 mg at bedtime. p.r.n. The patient is discharged in stable condition with guarded prognosis. MMODL / IJN: [id number] /
== END 2017-11-14 18:42 | disposition home or self-care (01) ==
LOC: EC 15:31 → 3OBS 17:16 → UNDODISOB 11-14 14:30
PROVIDERS: ADMIT Internal Medicine; ATTEND Internal Medicine
DX: R07.89 Other chest pain (principal); R07.2 Precordial pain; E87.6 Hypokalemia; I10 Essential (primary) hypertension; E78.5 Hyperlipidemia, unspecified; I25.2 Old myocardial infarction; G43.909 Migraine, unspecified, not intractable, without status migrainosus; G62.9 Polyneuropathy, unspecified; Z85.6 Personal history of leukemia; F41.9 Anxiety disorder, unspecified; Z87.891 Personal history of nicotine dependence; R61 Generalized hyperhidrosis; M19.90 Unspecified osteoarthritis, unspecified site; K21.9 Gastro-esophageal reflux disease without esophagitis; R01.1 Cardiac murmur, unspecified; M25.551 Pain in right hip; J44.1 Chronic obstructive pulmonary disease with (acute) exacerbation; J98.01 Acute bronchospasm; Z79.2 Long term (current) use of antibiotics; Z92.21 Personal history of antineoplastic chemotherapy; Z91.048 Other nonmedicinal substance allergy status; Z91.018 Allergy to other foods; Z88.1 Allergy status to other antibiotic agents; Z88.0 Allergy status to penicillin; Z83.3 Family history of diabetes mellitus; Z79.899 Other long term (current) drug therapy; Z79.1 Long term (current) use of non-steroidal anti-inflammatories (NSAID); Z80.8 Family history of malignant neoplasm of other organs or systems; Z82.49 Family history of ischemic heart disease and other diseases of the circulatory system
CPT/HCPCS: 99285; 99152; 96374; 96375; 96376 ×2; 36415; 94640 ×2; 94760; 93005; 93306; 93458; 80051; 80061; 80053; 82550 ×2; 82553 ×2; 83735; 84484 ×2; 85025; 85610; 85730; 71046; G0378 ×2; C1760; C1894; C1769; J2001; J2250; J2930 ×2; J2405; J3010; Q9967

== ENCOUNTER → 2017-11-27 | Outpatient (CLI) | payer MEDICARE, OTHER ==
--- NOTE | 2017-11-27 13:20 | P.PN ---
Progress Note - Text Progress Note Date: 11/27/17 This is a 52-year-old male with history of chronic lower back pain and as a matter of fact widespread body pain. He also has history of chemotherapy- induced peripheral neuropathy. He has a history of leukemia with bone marrow biopsy and treatment and chemotherapy treatment. He had 5 or 6 bone marrow biopsy is all from the painful area that he complains of the time which is on the right side of his lower back close to his sacroiliac joint. The last RFA that he had on the medial branches of the lumbar spine on the right side did not help his pain. In addition to above, 13-point review of systems is also negative for chest pain , shortness of breath, changes in vision, changes in hearing, new onset weakness , abdominal pain, diarrhea, extreme fatigue, malaise, fever, skin changes, homicidal or suicidal ideation, or bowel or bladder incontinence. Vital Signs: Reviewed in EMR Gen: AAOx3, NAD HEENT: NCAT, EOMI, hearing grossly normal Pulm: resp unlabored Neck: supple, trachea midline ROM in flexion lumbar spine: reduced ROM in extension lumbar spine: reduced Lumbar paravertebral tenderness: + SI joint tenderness: + R side Straight leg raise: neg Neuro exam of the lower extremities showed normal and symmetrical muscle strength and normal knee reflex bilaterally however absent ankle reflexes bilaterally Neuro: CN II-XII grossly intact, muscle strength lower extremities PRESERVED Imaging: Reviewed in EMR Assessment: 1. lumbar spondylosis without myelopathy 2. AML, in remission 3. 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 chronic pain syndrome 5-right sacroiliitis possible secondary joint dysfunction Plan: 1. Explanation: Opioid and psychological risk scores were reviewed. Diagnoses , prognoses, and multiple treatment options including but not limited to physical therapy, interventional therapies, adjuvant medical therapies, narcotic medication therapies, and surgery were discussed with the patient and all questions were answered to the patient's satisfaction. 2. Opioid agreement: no opioids prescribed today 3. Counseling: The patient was counseled extensively on SMOKING CESSATION, BODY MASS INDEX, EXERCISE. Specifically, the patient was instructed regarding the importance of smoking cessation, weight control, and exercise in the context of both chronic pain and overall health. 4. Procedures: R L5 dorsal ramus RFA and S1-S2 and 3(SI RFA), and trigger point injection in the right gluteus muscles around the sacroiliac joint 5. Consultations: None 6. Investigations: None 7. Medications: none prescribed 8. Disposition: f/u for procedure as scheduled PQRS measures: 1-Patient's medications are documented in the chart. 2-Tobacco use is negative 3-Patient has not had a pneumococcal vaccine. 4-Advanced care planning discussed, patient unable to give. 5-Opioid contract NOT signed with the patient. 6-Pain positive, follow-up visit or procedure scheduled 7-Patient's blood pressure measured and documented, and patient will follow up with the primary care due to hypertension. 8-Patient's weight was measured, and body mass index ABOVE the normal limits, and counseling was done. Patient instructed to follow up with PCP. 9-Patient WAS NOT identified as an unhealthy alcohol user.
[2017-11-27 13:52] VITALS: RESP 16
[2017-11-27 15:08] VITALS: BP 133/91; PULSE 69
== END | disposition home or self-care (01) ==
LOC: PNWHC3 12:25
PROVIDERS: ATTEND Anesthesiology
DX: G89.4 Chronic pain syndrome (principal); M47.816 Spondylosis without myelopathy or radiculopathy, lumbar region; C92.01 Acute myeloblastic leukemia, in remission; G62.9 Polyneuropathy, unspecified; M46.1 Sacroiliitis, not elsewhere classified
CPT/HCPCS: 99211

== ENCOUNTER → 2018-06-11 | Outpatient (CLI) | payer MEDICARE, OTHER ==
[2018-06-11 14:06] LABS: Basophils % (A) 1 %; Eosinophils # (A) 0.1 k/uL (0-0.7); Eosinophils % (A) 2 %; HCT 43.5 % (39.0-53.0); Lymphocytes % (A) 40 %; MCH 29.5 pg (25.0-35.0); MCHC 34.5 g/dL (31.0-37.0); MCV 85.5 fL (80.0-100.0); Mean Platelet Volume 6.6; Monocytes # (A) 0.3 k/uL (0-1.0); Monocytes % (A) 6 %; Neutrophils # (A) 2.5 k/uL (1.3-7.7); Neutrophils % (A) 49 %; Platelet Count 218 k/uL (150-450); RBC 5.09 m/uL (4.30-5.90); RDW 13.5 % (11.5-15.5)
[2018-06-11 14:22] LABS: C Reactive Protein 5.4 mg/L (<10.0); Uric Acid 6.3 mg/dL (3.5-8.5)
[2018-06-11 15:29] LABS: Erythrocyte Sedimentation Rate 4 mm/hr (0-15)
[2018-06-11 20:22] LABS: Rheumatoid Factor <4 IU/mL (0-15)
[2018-06-12 11:58] LABS: HLA B27 NEGATIVE
== END | disposition home or self-care (01) ==
LOC: LABWHC1 12:43
PROVIDERS: ATTEND Orthopaedic Surgery
DX: M25.50 Pain in unspecified joint (principal)
CPT/HCPCS: 36415; 84550; 85025; 85652; 86038; 86140; 86431; 86812

== ENCOUNTER 2018-09-01 14:08 | Emergency (ER) | payer MEDICARE, OTHER ==
[2018-09-01] MEDS ORDERED: KETOROLAC 30 MG/ML 1 ML VIAL IVP STA (14:47)
[2018-09-01] MEDS ORDERED: SODIUM CHLORIDE 0.9% 1,000 ML IV ONE (14:47)
[2018-09-01] MEDS ORDERED: SODIUM CHLORIDE 0.9% 500 ML 500 ML IV ONE (14:47)
[2018-09-01 15:17] LABS: ALT 45 U/L (21-72); AST 30 U/L (17-59); Albumin 4.4 g/dL (3.5-5.0); Alkaline Phosphatase 94 U/L (38-126); Amylase 51 U/L (30-110); Anion Gap 11 mmol/L; Blood Urea Nitrogen 15 mg/dL (9-20); Calcium 9.6 mg/dL (8.4-10.2); Carbon Dioxide 25 mmol/L (22-30); Chloride 104 mmol/L (98-107); Glucose 83 mg/dL (74-99); Lipase 191 U/L (23-300); Sodium 140 mmol/L (137-145); Total Bilirubin 0.7 mg/dL (0.2-1.3); Total Protein 7.1 g/dL (6.3-8.2)
[2018-09-01 15:23] LABS: Basophils % (A) 1 %; Eosinophils % (A) 1 %; HCT 42.6 % (39.0-53.0); HGB 14.8 gm/dL (13.0-17.5); Lymphocytes # (A) 1.1 k/uL (1.0-4.8); Lymphocytes % (A) 29 %; MCH 29.5 pg (25.0-35.0); MCHC 34.7 g/dL (31.0-37.0); MCV 85.2 fL (80.0-100.0); Mean Platelet Volume 6.6; Monocytes # (A) 0.4 k/uL (0-1.0); Monocytes % (A) 10 %; Neutrophils # (A) 2.2 k/uL (1.3-7.7); Neutrophils % (A) 56 %; Platelet Count 199 k/uL (150-450); RDW 12.8 % (11.5-15.5)
--- NOTE | 2018-09-01 15:40 | CT ---
EXAMINATION TYPE: CT abdomen pelvis w con DATE OF EXAM: 09/01/2018 COMPARISON: 03/30/2014 INDICATION: Right lower quadrant pain. DLP: 933.6 mGycm, Automated exposure control for dose reduction was used. CONTRAST: 100 mL of Isovue 300. Study performed without Oral Contrast TECHNIQUE: Axial images were obtained from above the diaphragm to the pubic rami in the axial plane a t 5 mm thick sections. Reconstructed images are reviewed on the computer in the coronal plane. FINDINGS: Limited CT sections are obtained the lung bases. The lung bases are clear. CT ABDOMEN: Liver: There is mild fatty infiltration the liver. Spleen: Normal Pancreas: Normal Adrenal glands: The adrenal glands are normal. Gallbladder: Surgically absent. Kidneys: No masses are evident. No hydronephrosis is present. No cysts are present. Delayed images were obtained through the kidneys, which remain unremarkable. Aorta: Vascular calcification is within the aorta. Inferior vena cava: Normal. CT PELVIS: Loops of bowel within the abdomen and pelvis are normal. Study is without oral contrast limiting the evaluation. Appendix: Normal as visualized. Urinary bladder: Decompressed with some limited evaluation. Phleboliths appear to be within the pelvi s. Distal ureteral stones be more difficult to exclude. However, no hydroureter is evident. No renal stones are evident. Genitourinary structures: Prostate is slightly prominent. Osseous structures: No suspicious lytic or sclerotic lesions. IMPRESSIONS: 1. Mild fatty change liver.
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
[2018-09-01 15:51] VITALS: BP 134/97; PULSE 84; RESP 18
[2018-09-01 16:11] LABS: Appearance,Urine Clear (Clear); Bilirubin,Urine Negative (Negative); Blood,Urine Negative (Negative); Color,Urine Yellow; Glucose,Urine (UA) Negative (Negative); Ketones,Urine 1+ (Negative); Leukocyte Esterase,Urine Negative (Negative); Nitrite,Urine Negative (Negative); Protein,Urine Trace (Negative); Urobilinogen,Urine <2.0 mg/dL (<2.0)
[2018-09-01 16:13] LABS: Specific Gravity,Urine >1.050 (1.001-1.035)
[2018-09-01 16:26] VITALS: TEMP 98
== END 2018-09-01 16:27 | disposition home or self-care (01) ==
LOC: EC 14:08
DX: R10.31 Right lower quadrant pain (principal); K21.9 Gastro-esophageal reflux disease without esophagitis; I10 Essential (primary) hypertension; I25.2 Old myocardial infarction; G62.9 Polyneuropathy, unspecified; F41.9 Anxiety disorder, unspecified; Z85.6 Personal history of leukemia; Z92.21 Personal history of antineoplastic chemotherapy; Z90.49 Acquired absence of other specified parts of digestive tract; Z87.891 Personal history of nicotine dependence; Z79.899 Other long term (current) drug therapy; Z88.0 Allergy status to penicillin; Z88.1 Allergy status to other antibiotic agents; Z91.048 Other nonmedicinal substance allergy status; Z91.018 Allergy to other foods
CPT/HCPCS: 36415; 80053; 82150; 83605; 83690; 85025; 81003; 74177; 99284; 96374; 96361; J1885; Q9967

== ENCOUNTER 2018-11-12 15:05 | Emergency (ER) | payer MEDICARE, OTHER ==
[2018-11-12 15:11] VITALS: RESP 18; TEMP 97.8
[2018-11-12] MEDS ORDERED: ONDANSETRON 4 MG/2 ML VIAL IVP STA (15:27)
[2018-11-12] MEDS ORDERED: SODIUM CHLORIDE 0.9% 500 ML 500 ML IV STA (15:27)
[2018-11-12] MEDS ORDERED: HYDROmorphone 1 MG/ML 1 ML SYRINGE IVP STA ×2 (15:27→18:08)
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
[2018-11-12 15:56] LABS: Basophils % (A) 1 %; Eosinophils # (A) 0.1 k/uL (0-0.7); Eosinophils % (A) 1 %; HCT 42.8 % (39.0-53.0); Lymphocytes # (A) 2.6 k/uL (1.0-4.8); Lymphocytes % (A) 41 %; MCH 30.9 pg (25.0-35.0); MCHC 35.1 g/dL (31.0-37.0); MCV 87.9 fL (80.0-100.0); Mean Platelet Volume 6.8; Monocytes # (A) 0.4 k/uL (0-1.0); Monocytes % (A) 6 %; Neutrophils # (A) 3.2 k/uL (1.3-7.7); Neutrophils % (A) 50 %; Platelet Count 216 k/uL (150-450); RBC 4.86 m/uL (4.30-5.90); RDW 13.6 % (11.5-15.5); WBC 6.4 k/uL (3.8-10.6)
[2018-11-12 16:08] LABS: ALT 35 U/L (21-72); AST 16 U/L (17-59); Albumin 4.2 g/dL (3.5-5.0); Alkaline Phosphatase 74 U/L (38-126); Amylase 55 U/L (30-110); Anion Gap 9 mmol/L; Blood Urea Nitrogen 12 mg/dL (9-20); Carbon Dioxide 25 mmol/L (22-30); Chloride 105 mmol/L (98-107); Glucose 91 mg/dL (74-99); Lipase 156 U/L (23-300); Potassium 3.6 mmol/L (3.5-5.1); Sodium 139 mmol/L (137-145); Total Bilirubin 0.5 mg/dL (0.2-1.3); Total Protein 6.7 g/dL (6.3-8.2)
--- NOTE | 2018-11-12 17:45 | CT ---
EXAMINATION TYPE: CT abdomen pelvis w con DATE OF EXAM: 11/12/2018 COMPARISON: 09/01/2018 HISTORY: Right lower quadrant pain. History of leukemia. CT DLP: 856.8 mGycm Automated exposure control for dose reduction was used. TECHNIQUE: Helical acquisition of images was performed from the lung bases through the pelvis. CONTRAST: Performed without Oral Contrast and with IV Contrast, patient injected with 100 mL of Isovue 300. FINDINGS: Lung bases are clear. There is no pleural effusion. Heart size is normal. There is no pericardial eff usion. There is minimal subsegmental atelectasis at the left lung base. There are clips from cholecystectomy. Liver shows no focal defect. The bile ducts are not dilated. Sp dianne appears normal. There is no pancreatic mass. There is no adrenal mass. Kidneys show satisfactory contrast opacification. There is no hydronephrosi s. There is no retroperitoneal adenopathy. There is no ascites. Bladder distends smoothly. There is n o inguinal hernia. There is no evidence of a pelvic mass. There is no free fluid in the pelvis. There is no mesenteric edema. The appendix appears normal. The lumbar spine is intact. I see no bony destr uctive process. Bony pelvis is intact. There is mild spurring in the lumbar spine. IMPRESSION: NEGATIVE CT SCAN OF THE ABDOMEN AND PELVIS. NORMAL APPENDIX. I DO NOT SEE A CAUSE FOR RIGHT LOWER JOHAN DRANT PAIN.
[2018-11-12 18:03] LABS: Appearance,Urine Clear (Clear); Bilirubin,Urine Negative (Negative); Blood,Urine Negative (Negative); Color,Urine Yellow; Glucose,Urine (UA) Negative (Negative); Ketones,Urine Negative (Negative); Leukocyte Esterase,Urine Negative (Negative); Nitrite,Urine Negative (Negative); Protein,Urine Negative (Negative); Urobilinogen,Urine <2.0 mg/dL (<2.0)
[2018-11-12 18:28] LABS: Specific Gravity,Urine >1.050 (1.001-1.035)
[2018-11-12 18:30] VITALS: BP 129/83; PULSE 70
== END 2018-11-12 18:25 | disposition home or self-care (01) ==
LOC: EC 15:05
DX: R10.31 Right lower quadrant pain (principal); G89.29 Other chronic pain; K21.9 Gastro-esophageal reflux disease without esophagitis; E78.5 Hyperlipidemia, unspecified; I10 Essential (primary) hypertension; I25.2 Old myocardial infarction; M19.90 Unspecified osteoarthritis, unspecified site; G62.9 Polyneuropathy, unspecified; F41.9 Anxiety disorder, unspecified; Z85.6 Personal history of leukemia; Z87.891 Personal history of nicotine dependence; Z79.891 Long term (current) use of opiate analgesic; Z79.899 Other long term (current) drug therapy; Z88.0 Allergy status to penicillin; Z88.1 Allergy status to other antibiotic agents; Z91.018 Allergy to other foods; Z91.048 Other nonmedicinal substance allergy status; Z90.49 Acquired absence of other specified parts of digestive tract
CPT/HCPCS: 36415; 80053; 82150; 83690; 85025; 81003; 74177; 99284; 96374; 96375; 96376; J2405; J1170; Q9967

== ENCOUNTER 2018-11-22 13:40 | Emergency (ER) | payer MEDICARE ==
[2018-11-22 13:48] VITALS: RESP 18
[2018-11-22] MEDS ORDERED: SODIUM CHLORIDE 0.9% 1,000 ML IV STA ×2 (14:20)
[2018-11-22] MEDS ORDERED: HYDROmorphone 1 MG/ML 1 ML SYRINGE IVP STA ×2 (14:20→15:32)
[2018-11-22] MEDS ORDERED: KETOROLAC 30 MG/ML 1 ML VIAL IVP STA (14:20)
[2018-11-22 14:44] LABS: Basophils % (A) 1 %; Eosinophils # (A) 0.1 k/uL (0-0.7); Eosinophils % (A) 1 %; HCT 40.2 % (39.0-53.0); HGB 14.5 gm/dL (13.0-17.5); Lymphocytes # (A) 2.2 k/uL (1.0-4.8); Lymphocytes % (A) 28 %; MCH 30.6 pg (25.0-35.0); MCHC 36.2 g/dL (31.0-37.0); MCV 84.5 fL (80.0-100.0); Monocytes # (A) 0.3 k/uL (0-1.0); Monocytes % (A) 4 %; Neutrophils # (A) 5.1 k/uL (1.3-7.7); Neutrophils % (A) 65 %; Platelet Count 209 k/uL (150-450); RBC 4.76 m/uL (4.30-5.90); RDW 13.3 % (11.5-15.5); WBC 7.8 k/uL (3.8-10.6)
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
[2018-11-22 14:47] LABS: Appearance,Urine Clear (Clear); Bilirubin,Urine Negative (Negative); Blood,Urine Negative (Negative); Color,Urine Light Yellow; Glucose,Urine (UA) Negative (Negative); Ketones,Urine Negative (Negative); Leukocyte Esterase,Urine Negative (Negative); Nitrite,Urine Negative (Negative); PH, Urine 7.5 (5.0-8.0); Protein,Urine Negative (Negative); Specific Gravity,Urine 1.003 (1.001-1.035); Urobilinogen,Urine <2.0 mg/dL (<2.0)
[2018-11-22 14:53] LABS: INR 0.9 (<1.2); Partial Thromboplastin Time 23.6 sec (22.0-30.0); Potassium 3.5 mmol/L (3.5-5.1); Prothrombin Time 10.1 sec (9.0-12.0)
[2018-11-22 14:54] LABS: ALT 34 U/L (21-72); AST 17 U/L (17-59); Albumin 4.2 g/dL (3.5-5.0); Alkaline Phosphatase 73 U/L (38-126); Amylase 45 U/L (30-110); Anion Gap 9 mmol/L; Blood Urea Nitrogen 12 mg/dL (9-20); Calcium 9.5 mg/dL (8.4-10.2); Carbon Dioxide 21 mmol/L (22-30); Chloride 108 mmol/L (98-107); Glucose 115 mg/dL (74-99); Lipase 164 U/L (23-300); Sodium 138 mmol/L (137-145); Total Bilirubin 0.7 mg/dL (0.2-1.3); Total Protein 6.5 g/dL (6.3-8.2)
[2018-11-22 15:45] VITALS: BP 117/79; PULSE 80; TEMP 97.5
== END 2018-11-22 15:45 | disposition home or self-care (01) ==
LOC: EC 13:40
DX: R10.31 Right lower quadrant pain (principal); G89.29 Other chronic pain; R10.813 Right lower quadrant abdominal tenderness; K21.9 Gastro-esophageal reflux disease without esophagitis; I10 Essential (primary) hypertension; I25.2 Old myocardial infarction; G62.9 Polyneuropathy, unspecified; F41.9 Anxiety disorder, unspecified; Z79.899 Other long term (current) drug therapy; Z88.0 Allergy status to penicillin; Z88.1 Allergy status to other antibiotic agents; Z91.018 Allergy to other foods; Z87.891 Personal history of nicotine dependence; Z85.6 Personal history of leukemia
CPT/HCPCS: 36415; 80053; 82150; 83605; 83690; 85025; 85610; 85730; 81003; 99285; 96374; 96375; 96376; 96361; J1885; J1170

== ENCOUNTER 2018-11-25 13:13 | Observation (INO) | payer MEDICARE ==
[2018-11-25] MEDS ORDERED: SODIUM CHLORIDE 0.9% 500 ML 500 ML IV STA (14:05)
[2018-11-25] MEDS ORDERED: HYDROmorphone 0.5 MG/0.5 ML SYRINGE IM PRN (14:16)
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
[2018-11-25] MEDS ORDERED: HYDROmorphone 0.5 MG/0.5 ML SYRINGE IVP PRN (14:49)
[2018-11-25 15:00] LABS: Basophils % (A) 1 %; Eosinophils # (A) 0.1 k/uL (0-0.7); Eosinophils % (A) 2 %; HCT 42.5 % (39.0-53.0); HGB 15.1 gm/dL (13.0-17.5); Lymphocytes # (A) 2.7 k/uL (1.0-4.8); Lymphocytes % (A) 43 %; MCH 30.4 pg (25.0-35.0); MCHC 35.6 g/dL (31.0-37.0); MCV 85.2 fL (80.0-100.0); Mean Platelet Volume 6.8; Monocytes # (A) 0.4 k/uL (0-1.0); Monocytes % (A) 6 %; Neutrophils % (A) 48 %; Platelet Count 204 k/uL (150-450); RBC 4.99 m/uL (4.30-5.90); RDW 13.2 % (11.5-15.5); WBC 6.4 k/uL (3.8-10.6)
[2018-11-25 15:03] LABS: Appearance,Urine Clear (Clear); Bilirubin,Urine Negative (Negative); Blood,Urine Negative (Negative); Color,Urine Light Yellow; Glucose,Urine (UA) Negative (Negative); Ketones,Urine Negative (Negative); Leukocyte Esterase,Urine Negative (Negative); Nitrite,Urine Negative (Negative); Protein,Urine Negative (Negative); Specific Gravity,Urine 1.005 (1.001-1.035); Urobilinogen,Urine <2.0 mg/dL (<2.0)
[2018-11-25 15:13] LABS: ALT 30 U/L (21-72); AST 15 U/L (17-59); Albumin 4.5 g/dL (3.5-5.0); Alkaline Phosphatase 67 U/L (38-126); Amylase 44 U/L (30-110); Anion Gap 11 mmol/L; Blood Urea Nitrogen 13 mg/dL (9-20); Calcium 9.8 mg/dL (8.4-10.2); Carbon Dioxide 24 mmol/L (22-30); Chloride 104 mmol/L (98-107); Glucose 76 mg/dL (74-99); Lipase 185 U/L (23-300); Potassium 3.8 mmol/L (3.5-5.1); Sodium 139 mmol/L (137-145); Total Bilirubin 0.9 mg/dL (0.2-1.3); Total Protein 6.9 g/dL (6.3-8.2)
[2018-11-25] MEDS ORDERED: NALOXONE 0.4 MG/ML 1 ML VIAL IV PRN (15:48)
[2018-11-25] MEDS ORDERED: ONDANSETRON 4 MG/2 ML VIAL IVP STA (16:10)
[2018-11-25] MEDS: SODIUM CHLORIDE 0.9% 1,000 ML IV SCH (16:27)
[2018-11-25] MEDS: HYDROmorphone 0.5 MG/0.5 ML SYRINGE IVP PRN ×3 (16:27→22:43)
[2018-11-25 17:59] VITALS: BMI 28.0
[2018-11-25] MEDS ORDERED: FUROSEMIDE 20 MG TAB PO PRN (19:12)
[2018-11-25] MEDS ORDERED: CYCLOBENZAPRINE 10 MG TAB PO PRN (19:12)
[2018-11-25] MEDS ORDERED: Acetaminophen-Codeine 300-30mg TAB PO PRN (19:12)
[2018-11-25] MEDS ORDERED: diphenhydrAMINE 50 MG/ML 1 ML VIAL IVP PRN (19:44)
--- NOTE | 2018-11-25 20:34 | P.GSHP ---
History of Present Illness H&P Date: 11/25/18 CHIEF COMPLAINT: Abdominal pain HISTORY OF PRESENT ILLNESS: The patient is a 53-year-old male who comes in now with progressively worsening right lower quadrant abdominal pain now more acute in the last 12 to 24 hrs of sharp, stabbing persistent of the right lower quadrant. He has no alleviating or modifying factors. In fact, in the past 2- 3 weeks he presented to the emergency room at least 3 going on 4 different locations without improvement of symptoms. He reports pain is now severe. Multiple diagnostic studies have been obtained. Upon careful inspection, suspected right inguinal hernia including abnormal anomaly of the appendix had been noted. Patient is admitted for uncontrolled right lower quadrant abdominal pain. PAST MEDICAL HISTORY: See list. PAST SURGICAL HISTORY: See list. MEDICATIONS: See list. ALLERGIES: See list. SOCIAL HISTORY: See list. FAMILY HISTORY: No reports of Crohn's disease or inflammatory bowel disease REVIEW OF ORGAN SYSTEMS: CONSTITUTIONAL: No fevers or chills. No recent weight loss. EYES: Denies any trouble with vision. No glasses. HEENT: No difficulties with hearing. No nosebleeds. No difficulty swallowing. RESPIRATORY: Denies pneumonia. Denies any troubles with breathing or dyspnea on exertion. CARDIOVASCULAR: Past history of myocardial infarction. No recent chest pain. GASTROINTESTINAL: Recent colonoscopy unremarkable for colitis. Upper endoscopy consistent with gastritis. Past history of C. diff colitis GENITOURINARY: Denies any blood in urine or increased urinary frequency. NEUROLOGICAL: Has numbness or tingling along the distal extremities. No seizure disorders. Has migraine headaches. MUSCULOSKELETAL: Has back pain, stiffness or joint arthritis. SKIN: No current skin cancer. No rash. PSYCHIATRIC: Denies current depression or suicidal thoughts. ENDOCRINE: Denies current thyroid disorders. Denies any blood sugar glucose intolerance. HEME/LYMPHATIC: Personal history of leukemia treated with chemotherapy. ALLERGY/IMMUNOLOGY: No immunoglobulin therapy. No immune deficiencies. BREAST: Denies current breast lumps, pain or nipple discharge. PHYSICAL EXAM: VITALS: Reviewed CONSTITUTIONAL: Well developed and in no acute distress. EYES: Conjuctivae with sclera icterus. Pupils are equally round and reactive to light. Extraocular movements grossly intact. HEAD, EARS, NOSE, THROAT: Moist buccal mucosa. Head is atraumatic, normocephalic. Hears conversational speech. No nasal drainage. Good dentition. NECK: Supple. No JV distention. No thyroidomegaly. RESPIRATORY: Non-labored respirations and equal bilateral excursions. No gross wheezes. CARDIOVASCULAR: Regular rate and rhythm. Extremities without moderate edema. Palpable 2+ radial pulses. ABDOMEN: No hepatomegaly. Soft. Pinpoint tenderness along the right lower quadrant between the anterior iliac spine and umbilicus. Mild guarding noted. Small defect along the right groin for suspected hernia. LYMPH: No neck lymphadenopathy. No axillary lymphadenopathy. MUSCULOSKELETAL: Gait within normal limits. Range of motion bilateral upper extremities within normal limits. Nail and fingers with good capillary refill. SKIN: Warm and well perfused with good skin turgor. NEUROLOGIC: Cranial nerves I through XII grossly intact. Sensation upper and extremities intact. No focal or lateralizing signs. PSYCH: Appropriate affect. Alert and oriented to person, place and time. Displays appropriate insight. CLINCAL LABS: Reviewed RADIOLOGY: Report reviewed. Multiple CT of the abdomen and pelvis is reviewed demonstrating abnormal meandering appendix along the right lower quadrant. MEDICAL TEST: Endoscopy reviewed IMAGING: Independently reviewed alongside with patient RECORDS: previous old records reviewed ASSESSMENT: 1. Severe right lower quadrant abdominal pain with guarding 2. Abnormal computed tomography scan with anomaly of appendix 3. Right groin pain suspected hernia 4. History of chronic pain. PLAN: 1. Robotic-assisted right inguinal hernia repair and appendectomy were described with this noted abnormalities. Mesh placement was also described. 2. He has ongoing chronic pain including lower back pain which may exacerbate his symptoms. Persistent pain after surgery was also reviewed in detail. 3. With his chronic pain, narcotic pain rules were described included limited prescription of postoperative pain meds. 4. He has active relationship with the pain clinic which will also be sought for perioperative pain management. 5. Overall, patient is intermediate risk for complications with his baseline chronic pain needs. 6. Surgical and nonsurgical options were described for which patient agreed to proceed with shared decision making performed. Past Medical History Past Medical History: Cancer, GERD/Reflux, Hyperlipidemia, Hypertension, Myocardial Infarction ([place]), Osteoarthritis ([place]) Additional Past Medical History / Comment(s): migraines, heart murmer from , pain in rt hip and down leg, lower legs and and ankles sensitive to touch, neuropathy rt left and foot, AML/APL leukemia,"has had irradiated blood transfusions" c-diff x 2 in 2004 and 2014. stress test 2009 and 2017. Last Myocardial Infarction Date:: 2009 History of Any Multi-Drug Resistant Organisms: C-DIFF Date of last positivie culture/infection: 02/20/2013 MDRO Source:: stool Past Surgical History: Back Surgery, Cholecystectomy, Orthopedic Surgery Additional Past Surgical History / Comment(s): PICC line/removed, bone marrow biopsy X 5, sinus surgery x 2, pilonidal cyst, rt shoulder rotator cuff, burak foot surgery, port right upper chest/later removed, Rt knee arthroscopy x 2, rt knee meniscus repair, back sx-"nad nerves burned" Past Anesthesia/Blood Transfusion Reactions: No Reported Reaction Additional Past Anesthesia/Blood Transfusion Reaction / Comment(s): clausterphobia Past Psychological History: Anxiety Smoking Status: Former smoker Past Alcohol Use History: None Reported Past Drug Use History: None Reported - Past Family History Mother Family Medical History: Cancer Father Family Medical History: Coronary Artery Disease (CAD), Diabetes Mellitus Medications and Allergies Home Medications Medication Instructions Recorded Confirmed Type Cyclobenzaprine [Flexeril] 10 mg PO HS PRN 09/18/14 11/25/18 History Omeprazole [PriLOSEC] 20 mg PO BID 09/18/14 11/25/18 History Lisinopril [Zestril] 10 mg PO QAM 04/12/15 11/25/18 History Gabapentin [Neurontin] 600 mg PO BID 08/27/15 11/25/18 History amLODIPine [Norvasc] 10 mg PO QAM 08/27/15 11/25/18 History Acetaminophen-Codeine 300-30mg 1 - 2 tab PO Q4-6H PRN 09/01/18 11/25/18 History [Tylenol w/codeine #3] ALPRAZolam [Xanax] 0.5 mg PO HS 11/12/18 11/25/18 History Cholecalciferol [Vitamin D3] 5,000 unit PO HS 11/12/18 11/25/18 History Naproxen Sodium [Aleve] 220 mg PO DAILY PRN 11/14/18 11/25/18 History Dicyclomine [Bentyl] 20 mg PO QID #60 tablet 11/17/18 11/25/18 Rx Furosemide [Lasix] 20 mg PO DAILY PRN 11/25/18 11/25/18 History Allergies Allergy/AdvReac Type Severity Reaction Status Date / Time Penicillins Allergy Severe Rash/Hives, Verified 11/25/18 13:59 Nausea moxifloxacin HCl AdvReac Intermediate Nausea Verified 11/25/18 13:59 [From Avelox] cephalexin monohydrate AdvReac c-diff Verified 11/25/18 13:59 [From Keflex] MOLD AdvReac Severe Dyspnea, Uncoded 11/22/18 13:48 Watery Eyes, Runny Nose mushroom AdvReac Dyspnea Uncoded 11/22/18 13:48 Surgical - Exam Vital Signs Temp Pulse Resp BP Pulse Ox 97.8 F 76 18 116/80 98 11/25/18 13:31 11/25/18 13:31 11/25/18 13:31 11/25/18 13:31 11/25/18 13:31 Results - Labs 11/25/18 14:40 11/25/18 14:40 Abnormal Lab Results - Last 24 Hours (Table) 11/25/18 Range/Units 14:40 AST 15 L (17-59) U/L Diabetes panel 11/25/18 Range/Units 14:40 Sodium 139 (137-145) mmol/L Potassium 3.8 (3.5-5.1) mmol/L Chloride 104 (98-107) mmol/L Carbon Dioxide 24 (22-30) mmol/L BUN 13 (9-20) mg/dL Creatinine 0.80 (0.66-1.25) mg/dL Glucose 76 (74-99) mg/dL Calcium 9.8 (8.4-10.2) mg/dL AST 15 L (17-59) U/L ALT 30 (21-72) U/L Alkaline Phosphatase 67 (38-126) U/L Total Protein 6.9 (6.3-8.2) g/dL Albumin 4.5 (3.5-5.0) g/dL Calcium panel 11/25/18 Range/Units 14:40 Calcium 9.8 (8.4-10.2) mg/dL Albumin 4.5 (3.5-5.0) g/dL Pituitary panel 11/25/18 Range/Units 14:40 Sodium 139 (137-145) mmol/L Potassium 3.8 (3.5-5.1) mmol/L Chloride 104 (98-107) mmol/L Carbon Dioxide 24 (22-30) mmol/L BUN 13 (9-20) mg/dL Creatinine 0.80 (0.66-1.25) mg/dL Glucose 76 (74-99) mg/dL Calcium 9.8 (8.4-10.2) mg/dL Adrenal panel 11/25/18 Range/Units 14:40 Sodium 139 (137-145) mmol/L Potassium 3.8 (3.5-5.1) mmol/L Chloride 104 (98-107) mmol/L Carbon Dioxide 24 (22-30) mmol/L BUN 13 (9-20) mg/dL Creatinine 0.80 (0.66-1.25) mg/dL Glucose 76 (74-99) mg/dL Calcium 9.8 (8.4-10.2) mg/dL Total Bilirubin 0.9 (0.2-1.3) mg/dL AST 15 L (17-59) U/L ALT 30 (21-72) U/L Alkaline Phosphatase 67 (38-126) U/L Total Protein 6.9 (6.3-8.2) g/dL Albumin 4.5 (3.5-5.0) g/dL - Imaging CT scan - abdomen: report reviewed, image reviewed CT scan - pelvis: report reviewed, image reviewed (All prior images reviewed) Assessment and Plan (1) Right inguinal hernia Current Visit: Yes Status: Acute Code(s): K40.90 - UNIL INGUINAL HERNIA, W/ O OBST OR GANGR, NOT SPCF RECUR SNOMED Code(s): 802284765 (2) Appendix disease Current Visit: Yes Status: Acute Code(s): K38.9 - DISEASE OF APPENDIX, UNSPECIFIED SNOMED Code(s): 49702680 (3) Intractable right lower quadrant abdominal pain Current Visit: Yes Status: Acute Code(s): R10.31 - RIGHT LOWER QUADRANT PAIN SNOMED Code(s): 006208502 (4) History of chemotherapy Current Visit: Yes Status: Acute Code(s): Z92.21 - PERSONAL HISTORY OF ANTINEOPLASTIC CHEMOTHERAPY SNOMED Code(s): 042981023199244 (5) History of leukemia Current Visit: Yes Status: Acute Code(s): Z85.6 - PERSONAL HISTORY OF LEUKEMIA SNOMED Code(s): 285951804 (6) History of myocardial infarction Current Visit: Yes Status: Acute Code(s): I25.2 - OLD MYOCARDIAL INFARCTION SNOMED Code(s): 911696266 (7) Chronic pain Current Visit: Yes Status: Acute Code(s): G89.29 - OTHER CHRONIC PAIN SNOMED Code(s): 20445866 (8) Ischemic heart disease Current Visit: Yes Status: Acute Code(s): I25.9 - CHRONIC ISCHEMIC HEART DISEASE, UNSPECIFIED SNOMED Code(s): 924220316
[2018-11-25] MEDS: GABAPENTIN 300 MG CAP PO SCH (21:37)
[2018-11-25] MEDS: CHOLECALCIFEROL 1,000 UNIT TAB PO SCH (21:37)
[2018-11-25] MEDS: ALPRAZolam 0.5 MG TAB PO SCH (21:38)
[2018-11-25] MEDS ORDERED: DICYCLOMINE 20 MG TAB PO SCH (22:00)
[2018-11-26] MEDS: HYDROmorphone 0.5 MG/0.5 ML SYRINGE IVP PRN ×6 (01:50→23:29)
[2018-11-26] MEDS: SODIUM CHLORIDE 0.9% 1,000 ML IV SCH ×2 (06:27→23:33)
[2018-11-26] MEDS: PANTOPRAZOLE 40 MG TABLET PO SCH (08:23)
[2018-11-26] MEDS: GABAPENTIN 300 MG CAP PO SCH ×2 (08:23→20:25)
[2018-11-26] MEDS: amLODIPine 10 MG TAB PO SCH (08:23)
[2018-11-26] MEDS: LISINOPRIL 10 MG TAB PO SCH (08:23)
[2018-11-26] MEDS ORDERED: ACETAMINOPHEN IV (For NPO) 1,000 MG in EMPTY BAG 1 BAG IVPB ONE (12:00)
[2018-11-26] MEDS ORDERED: ceFAZolin IN SWFI 2 GM/20 ML SYRINGE IVP ONE ×2 (12:00→15:56)
[2018-11-26] MEDS ORDERED: IV FLUID CONTINUATION 1,000 ML IV ONE (13:52)
--- NOTE | 2018-11-26 14:02 | P.PN ---
Subjective Progress Note Date: 11/26/18 CHIEF COMPLAINT: abdominal pain HISTORY OF PRESENT ILLNESS: A 53-year-old male who presented to emergency room with worsening right lower quadrant pain. Patient examined at the bedside this morning. present. Patient continues to complain of right lower quadrant pain but he states it is tolerable at this time. Denies nausea or vomiting. Vital signs are stable. He is NPO. PHYSICAL EXAM: VITAL SIGNS: Currently stable. GENERAL: Well-developed in no acute distress. HEENT: No sclera icterus. Extraocular movements grossly intact. Moist buccal mucosa. Head is atraumatic, normocephalic. Hears conversational speech. No nasal drainage. NECK: Supple without lymphadenopathy. CHEST: Non-labored respirations and equal bilateral excursions. CARDIOVASCULAR: Regular rate with regular rhythm. Palpable 2+ radial pulses. ABDOMEN: Soft. Nondistended. Tenderness upon palpation of right lower quadrant. MUSCULOSKELETAL: No clubbing, cyanosis or edema. NEUROLOGIC: No focal or lateralizing signs. Cranial nerves II through XII grossly intact. PSYCH: Appropriate affect. Alert and oriented to person, place and time. SKIN: Well perfused. Good skin turgor. ASSESSMENT: 1. Severe right lower quadrant abdominal pain with guarding 2. Abnormal computed tomography scan with anomaly of appendix 3. Right groin pain suspected hernia 4. History of chronic pain PLAN: NPO. Patient to undergo right inguinal hernia repair and appendectomy today with Dr. Hood. Nurse practitioner note has been reviewed by physician. Signing provider agrees with the documented findings, assessment, and plan of care. Objective - Vital Signs Vital signs: Vital Signs Temp 97.9 F 11/26/18 07:42 Pulse 69 11/26/18 07:42 Resp 16 11/26/18 07:42 BP 109/71 11/26/18 07:42 Pulse Ox 98 11/26/18 05:37 Intake & Output 11/25/18 11/26/18 11/26/18 18:59 06:59 18:59 Intake Total 500 600 Balance 500 600 Weight 91.172 kg Intake: IV 600 Sodium Chloride 0.9% 1, 600 000 ml @ 75 mls/hr IV . [id number] ALIZE Rx#:[id number] Amount of Fluid Infused ( 500 ml) Other: Voiding Method Toilet Toilet # Voids 3 - Labs CBC & Chem 7: 11/25/18 14:40 11/25/18 14:40 Labs: Abnormal Lab Results - Last 24 Hours (Table) 11/25/18 Range/Units 14:40 AST 15 L (17-59) U/L Assessment and Plan (1) Appendix disease Current Visit: Yes Status: Acute Code(s): K38.9 - DISEASE OF APPENDIX, UNSPECIFIED SNOMED Code(s): 67377218 (2) Chronic pain Current Visit: Yes Status: Acute Code(s): G89.29 - OTHER CHRONIC PAIN SNOMED Code(s): 65000457 (3) History of leukemia Current Visit: Yes Status: Acute Code(s): Z85.6 - PERSONAL HISTORY OF LEUKEMIA SNOMED Code(s): 443111482 (4) Intractable right lower quadrant abdominal pain Current Visit: Yes Status: Acute Code(s): R10.31 - RIGHT LOWER QUADRANT PAIN SNOMED Code(s): 916502132 (5) Ischemic heart disease Current Visit: Yes Status: Acute Code(s): I25.9 - CHRONIC ISCHEMIC HEART DISEASE, UNSPECIFIED SNOMED Code(s): 412660128 (6) Right inguinal hernia Current Visit: Yes Status: Acute Code(s): K40.90 - UNIL INGUINAL HERNIA, W/O OBST OR GANGR, NOT SPCF RECUR SNOMED Code(s): 779724735
[2018-11-26] MEDS ORDERED: ACETAMINOPHEN IV (For NPO) 1,000 MG/100 ML VIAL IVPB ONE (14:25)
[2018-11-26] MEDS ORDERED: diphenhydrAMINE 25 MG CAP PO PRN (15:01)
[2018-11-26] MEDS ORDERED: HEPARIN SODIUM,PORCINE 5,000 UNIT/ML 1 ML VIAL SQ ONE (15:15)
[2018-11-26] MEDS ORDERED: MIDAZOLAM 2 MG/2 ML VIAL IVP ONE (15:23)
[2018-11-26] MEDS ORDERED: LACTATED RINGERS 1,000 ML IV ONE ×2 (15:42→16:51)
[2018-11-26] MEDS ORDERED: NEOSTIGMINE 1 MG/ML 10 ML VIAL ONE (15:45)
[2018-11-26] MEDS ORDERED: SUCCINYLCHOLINE CHLORIDE 100 MG/5 ML SYR IV ONE (15:45)
[2018-11-26] MEDS ORDERED: fentaNYL (PF) 50 MCG/ML 2 ML AMP ONE (15:45)
[2018-11-26] MEDS ORDERED: LIDOCAINE 1% INJ 10MG/ML (20 ML MDV) ONE (15:45)
[2018-11-26] MEDS ORDERED: ROPIVACAINE 5 MG/ML 30 ML VIAL ONE (15:45)
[2018-11-26] MEDS ORDERED: ROCURONIUM BROMIDE 10 MG/ML 10 ML VIAL IV ONE (15:45)
[2018-11-26] MEDS ORDERED: GLYCOPYRROLATE 0.2 MG/ML 2 ML VIAL ONE ×2 (15:45)
[2018-11-26] MEDS ORDERED: DEXAMETHASONE SOD PHOS (MDV) 100 MG/10 ML VIAL ONE (15:45)
[2018-11-26] MEDS ORDERED: DEXAMETHASONE SOD PHOSPHATE 4 MG/ML 1 ML VIAL ONE (15:45)
[2018-11-26] MEDS ORDERED: PROPOFOL 10 MG/ML 20 ML VIAL IV ONE (15:45)
[2018-11-26] MEDS ORDERED: ePHEDrine SULFATE/0.9% NACL/PF 50 MG/5 ML SYRINGE IV ONE (15:45)
[2018-11-26] MEDS ORDERED: ONDANSETRON 4 MG/2 ML VIAL ONE (15:45)
[2018-11-26] MEDS ORDERED: BUPIVACAIN-EPI 0.5%-1:200,000 30 ML VIAL SQ ONE (16:07)
[2018-11-26] MEDS ORDERED: HYDROcodone/APAP 5-325MG 1 EACH TAB PO PRN (17:25)
[2018-11-26] MEDS ORDERED: ONDANSETRON 4 MG/2 ML VIAL IVP PRN (17:25)
--- NOTE | 2018-11-26 17:51 | P.OP ---
Date of Procedure: 11/26/18 Description of Procedure: SURGEON: SHANNAN SOLANO MD PREOPERATIVE DIAGNOSES: 1. Intractable right lower quadrant abdominal pain 2. Right inguinal hernia 3. Abnormal computed tomography scan with anomaly of appendix 4. History of leukemia status post chemotherapy 5. Chronic pain syndrome 6. History of myocardial infarction 7. Hypertensive heart disease 8. Gastroesophageal reflux disease 9. Sigmoid diverticulosis 10. 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 Generalized anxiety disorder 12. Migraine disorder POSTOPERATIVE DIAGNOSES: 1. Incarcerated indirect right inguinal hernia, initial 2. Incarcerated right inguinal lipoma, 5 cm, initial 3. Left inguinal hernia, indirect, initial 4. Chronic appendicitis 5. Intractable right lower quadrant abdominal pain 6. History of myocardial infarction 7. Hypertensive heart disease 8. Gastroesophageal reflux disease 9. Sigmoid diverticulosis 10. 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 Generalized anxiety disorder 12. Migraine disorder 13. History of leukemia status post chemotherapy 14. Chronic pain syndrome OPERATION: 1. Robotic-assisted da Carolyn Xi laparoscopic appendectomy 2. Robotic-assisted da Carolyn Xi laparoscopic repair of initial incarcerated right indirect inguinal hernia with mesh, 11.[address] 3. Robotic-assisted da Carolyn Xi laparoscopic repair of initial left indirect inguinal hernia with mesh, 11.[address] 4. Resection of incarcerated right inguinal lipoma, 5 cm ANESTHESIA: General with local anesthetic ESTIMATED BLOOD LOSS: 5 mL. SPECIMENS: 1. Incarcerated right inguinal hernia lipoma 2. Appendix COMPLICATIONS: None. INDICATIONS: The patient is a 53-year-old male who presents with intractable right lower quadrant abdominal pain including right inguinal pain. Multiple diagnostic studies were performed including multiple ER visits in less than 3 weeks. Careful inspection of computed tomography scan demonstrated a suspected right inguinal hernia including anomaly of the appendix. Surgical intervention was described with intent of appendectomy including possible inguinal hernia repairs. Benefits and risks of the procedure however not limited to bleeding, infection, need for further surgery and persistent pain were reviewed. Shared medical decision making was completed with the patient and his and informed consent was obtained. DESCRIPTION: A peritoneal block was requested for the patient's history of chronic pain and performed per anesthesia. The patient was brought to the operating room and initially laid in supine position. The abdomen had been prepped and draped in standard sterile fashion. Ioban draping was also placed. Prior to incision, a timeout protocol was confirmed with surgical team regarding patient's name including procedures to be performed and location along the right groin. Initial positioning for the robotic assisted ports were selected whereby 20 cm superior to the target anatomy, 0 degree 5 mm laparoscopic trocar entry was performed at the left upper quadrant. The abdomen was insufflated to 15 mmHg which he had tolerated well. Diagnostic laparoscopy demonstrated no injury to bowel, viscera or mesentery. Bilateral inguinal defects were found. No peritoneal adhesions were found. The cecum was unremarkable however the appendix was long and traversing deep into the pelvis in the retroperitoneum. Next, along the epigastrium, 8 mm robot trocar was placed. An 8-mm robotic trocar was placed under direct visualization at the right upper quadrant. An 12 mm port was placed at the left upper quadrant after exchanging the 5 mm trocar. All trocars were positioned between 10-cm apart from each other. The Storelift XI robot was primed, draped, prepared for docking along upper abdomen of the patient. The patient was positioned 16 steep Trendelenburg position. I then went to the Storelift Xi console. The pathology assistant was at bedside for exchange of the robot arms and equipment. Initial attention was brought to the appendectomy portion of the procedure where the mesentery was mobilized using vessel sealer. Dilated veins were found including dilated tip of the appendix consistent with chronic appendicitis. After mobilizing the mesoappendix, a blue 45 mm robotic staple load was fired across the base of the appendix. Bleeding was controlled using electro-Bovie cautery and pressure using 4 x 4 gauze. Next attention was brought to the inguinal hernia repair portion of the procedure Careful attention along the right groin demonstrated an actively incarcerated direct right inguinal hernia. The right inguinal hernia sac was evaginated whereby the peritoneum was scored using Endo scissors with cautery. Once completely reduced into the abdominal cavity, the peritoneal sac of the hernia was stripped along a tightly incarcerated inguinal hernia involving a large 5-cm right inguinal lipoma. The lipoma and sac was resected and then passed off for further pathological analysis. The size of the hernia defect was 3 cm with intraoperative films obtained. Using a 2-0 VLOC, the peritoneal defect of the right inguinal hernia site was closed using a running suture. The defect was found to be completely closed with complete reduction of the right direct inguinal hernia was confirmed. As an onlay, an 11.[address] mesh by Bard was initially cut in half and entered into the abdominal cavity via the 8 mm trocar. The mesh was tacked to the pelvis using 2-0 VLOC 9-inch length sutures. The left indirect inguinal hernia sac was evaginated whereby the peritoneum was scored using Endo scissors with cautery. The left groin was explored and no lipomas were identified. The size of the hernia defect was 3 cm with intraoperative films obtained. Using a 2-0 VLOC, the peritoneal defect of the left inguinal hernia sites was closed using a running suture separately. The defect was found to be completely closed with complete reduction of the left indirect inguinal hernia were confirmed. As an onlay, an 11.[address] mesh by Bard was initially cut in half and entered into the abdominal cavity via the 8 mm trocar. The mesh was tacked to the pelvis using 2-0 VLOC 12-inch length sutures. The robot was undocked from the patient's bedside. I then rescrubbed into the case. Insufflation was released from the abdominal cavity and all instruments were removed from the abdominal cavity. The rest of incisions were reapproximated using 4-0 Monocryl in a running subcuticular fashion. Local anesthetic was placed along the incision including for a bilateral groin block. Incisions were cleansed using dilute hydrogen peroxide. Liquid glue was applied to the skin. At the end of the procedure, the needle, sponge and instrument counts had been verified correct by the instructor adjunct surgical technician. The patient had tolerated the procedure well and was taken to the postanesthesia care unit in stable condition. FINDINGS: 1. Incarcerated initial right inguinal hernia indirect 3-cm with incarcerated right inguinal lipoma, 5 cm resected 2. Left inguinal hernia, 3 cm, indirect 3. Severe sigmoid diverticulosis 4. Chronic appendicitis with dilated tip and proximal body
[2018-11-26] MEDS: HYDROmorphone 1 MG/ML 1 ML SYRINGE IVP ONE ×2 (18:37→18:43)
[2018-11-26] MEDS: KETOROLAC 30 MG/ML 1 ML VIAL IVP SCH ×2 (18:38→23:33)
[2018-11-26] MEDS: CHOLECALCIFEROL 1,000 UNIT TAB PO SCH (20:25)
[2018-11-26] MEDS: ALPRAZolam 0.5 MG TAB PO SCH (22:16)
[2018-11-27] MEDS: HYDROmorphone 0.5 MG/0.5 ML SYRINGE IVP PRN ×4 (03:06→13:08)
[2018-11-27] MEDS: KETOROLAC 30 MG/ML 1 ML VIAL IVP SCH ×2 (04:41→11:16)
[2018-11-27 08:08] VITALS: RESP 14
[2018-11-27] MEDS: SODIUM CHLORIDE 0.9% 1,000 ML IV SCH (08:39)
[2018-11-27] MEDS: PANTOPRAZOLE 40 MG TABLET PO SCH (08:39)
[2018-11-27] MEDS: LISINOPRIL 10 MG TAB PO SCH (08:39)
[2018-11-27] MEDS: GABAPENTIN 300 MG CAP PO SCH (08:39)
[2018-11-27] MEDS: amLODIPine 10 MG TAB PO SCH (08:39)
[2018-11-27] MEDS ORDERED: ENOXAPARIN 40 MG/0.4 ML SYRINGE SQ SCH (09:00)
[2018-11-27] MEDS ORDERED: ONDANSETRON 4 MG/2 ML VIAL IVP PRN (09:40)
[2018-11-27] MEDS ORDERED: ONDANSETRON 4 MG/2 ML VIAL ONE (09:42)
[2018-11-27] MEDS ORDERED: TAMSULOSIN 0.4 MG CAP.ER.24H PO SCH (09:45)
[2018-11-27] MEDS: traMADol 50 MG TAB PO SCH ×2 (11:13→14:54)
--- NOTE | 2018-11-27 13:34 | P.ONQ ---
Anesthesiology Proc Note - PNB - Peripheral Nerve Block Performed Right Transversus Abdominis Single Time Out Performed: Yes Procedure Start Time: 15:23 Procedure Stop Time: 15:28 Indication: Acute Post-Operative Pain, Requested by physician Sedation Type: Sedate with meaningful contact maintained Position: Supine Needle Size: 50mm (2") Needle Gauge: 21 Technique: Ultrasound (ropi .5% 30cc plus dexamethasone 4mg) Blood Aspirated: No Pain Paresthesia on Injection Noted: No Resistance on Injection: Normal Events: Uneventful and Well Tolerated
--- NOTE | 2018-11-27 14:14 | P.DS ---
Providers Date of admission: 11/25/18 16:52 Expected date of discharge: 11/27/18 Attending physician: Mary Hood Primary care physician: Valdo Posey - Discharge Diagnosis(es) (1) Appendix disease Current Visit: Yes Status: Acute (2) Chronic pain Current Visit: Yes Status: Acute (3) History of leukemia Current Visit: Yes Status: Acute (4) Intractable right lower quadrant abdominal pain Current Visit: Yes Status: Acute (5) Ischemic heart disease Current Visit: Yes Status: Acute (6) Right inguinal hernia Current Visit: Yes Status: Acute Hospital Course: The patient is a 53-year-old male who comes in now with progressively worsening right lower quadrant abdominal pain now more acute in the last 12 to 24 hrs of sharp, stabbing persistent of the right lower quadrant. He has no alleviating or modifying factors. In fact, in the past 2-3 weeks he presented to the emergency room at least 3 going on 4 different locations without improvement of symptoms. He reports pain is now severe. Multiple diagnostic studies have been obtained. Upon careful inspection, suspected right inguinal hernia including abnormal anomaly of the appendix had been noted. Patient was admitted for unco ntrolled right lower quadrant abdominal pain. He underwent robotic-assisted da Carolyn Xi laparoscopic appendectomy, repair of initial incarcerated right indirect inguinal hernia with mesh, left indirect inguinal hernia with mesh, and resection of incarcerated subfascial right inguinal lipoma. Patient is doing well postoperatively. He did have some nausea, likely secondary to narcotics. He was evaluated by pain management who recommends Mobic and Ultram. Patient also experiencing some urinary retention post op. He was started on Flomax. Patient is stable for discharge home today. Please see EMR for further hospital course details. Discharge Diagnosis: 1. Incarcerated indirect right inguinal hernia, initial 2. Incarcerated right inguinal lipoma, 5 cm, initial 3. Left inguinal hernia, indirect, initial 4. Chronic appendicitis 5. Intractable right lower quadrant abdominal pain 6. History of myocardial infarction 7. Hypertensive heart disease 8. Gastroesophageal reflux disease 9. Sigmoid diverticulosis 10. 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 Generalized anxiety disorder 12. Migraine disorder 13. History of leukemia status post chemotherapy 14. Chronic pain syndrome 15. Post operative urinary retention Nurse practitioner note has been reviewed by physician. Signing provider agrees with the documented findings, assessment, and plan of care. Patient Condition at Discharge: Stable Plan - Discharge Summary New Discharge Prescriptions: New Meloxicam [Mobic] 7.5 mg PO DAILY #7 tab traMADol HCl [Ultram] 50 mg PO Q6HR PRN 3 Days #12 tab PRN Reason: Pain Tamsulosin [Flomax] 0.4 mg PO DAILY 3 Days #3 cap Discontinued Acetaminophen-Codeine 300-30mg [Tylenol w/codeine #3] 1 - 2 tab PO Q4-6H PRN PRN Reason: Pain No Action Omeprazole [PriLOSEC] 20 mg PO BID Cyclobenzaprine [Flexeril] 10 mg PO HS PRN PRN Reason: Pain Lisinopril [Zestril] 10 mg PO QAM Gabapentin [Neurontin] 600 mg PO BID amLODIPine [Norvasc] 10 mg PO QAM ALPRAZolam [Xanax] 0.5 mg PO HS Cholecalciferol [Vitamin D3] 5,000 unit PO HS Naproxen Sodium [Aleve] 220 mg PO DAILY PRN PRN Reason: Pain Dicyclomine [Bentyl] 20 mg PO QID #60 tablet Furosemide [Lasix] 20 mg PO DAILY PRN PRN Reason: Edema Discharge Medication List Cyclobenzaprine [Flexeril] 10 mg PO HS PRN 09/18/14 [History] Omeprazole [PriLOSEC] 20 mg PO BID 09/18/14 [History] Lisinopril [Zestril] 10 mg PO QAM 04/12/15 [History] Gabapentin [Neurontin] 600 mg PO BID 08/27/15 [History] amLODIPine [Norvasc] 10 mg PO QAM 08/27/15 [History] ALPRAZolam [Xanax] 0.5 mg PO HS 11/12/18 [History] Cholecalciferol [Vitamin D3] 5,000 unit PO HS 11/12/18 [History] Naproxen Sodium [Aleve] 220 mg PO DAILY PRN 11/14/18 [History] Dicyclomine [Bentyl] 20 mg PO QID #60 tablet 11/17/18 [Rx] Furosemide [Lasix] 20 mg PO DAILY PRN 11/25/18 [History] Meloxicam [Mobic] 7.5 mg PO DAILY #7 tab 11/27/18 [Rx] Tamsulosin [Flomax] 0.4 mg PO DAILY 3 Days #3 cap 11/27/18 [Rx] traMADol HCl [Ultram] 50 mg PO Q6HR PRN 3 Days #12 tab 11/27/18 [Rx] Follow up Appointment(s)/Referral(s): José Luis Posey MD [Primary Care Provider] - 1-2 days Mary Hood MD [STAFF PHYSICIAN] - 1 Week Activity/Diet/Wound Care/Special Instructions: No driving while taking [place] No lifting over 10 pounds You may shower. No soaking or tub baths Very light activity until you are reevaluated at your follow up appointment with your surgeon
[2018-11-27] MEDS ORDERED: TAMSULOSIN 0.4 MG CAP.ER.24H PO STA (15:16)
[2018-11-27 16:12] VITALS: BP 123/72; PULSE 81; TEMP 97.9
== END 2018-11-27 15:51 | disposition home or self-care (01) ==
LOC: EC 13:13 → 4MS4W 16:52 → 4SSUR 11-26 17:34
PROVIDERS: ADMIT Surgery Plastic and Reconstructive Surgery; ATTEND Surgery Plastic and Reconstructive Surgery
DX: K40.30 Unilateral inguinal hernia, with obstruction, without gangrene, not specified as recurrent (principal); D17.79 Benign lipomatous neoplasm of other sites; K36 Other appendicitis; C92.01 Acute myeloblastic leukemia, in remission; R33.9 Retention of urine, unspecified; K57.30 Diverticulosis of large intestine without perforation or abscess without bleeding; I25.2 Old myocardial infarction; I11.9 Hypertensive heart disease without heart failure; K21.9 Gastro-esophageal reflux disease without esophagitis; G62.0 Drug-induced polyneuropathy; T45.1X5A Adverse effect of antineoplastic and immunosuppressive drugs, initial encounter; R11.0 Nausea; F41.1 Generalized anxiety disorder; G43.909 Migraine, unspecified, not intractable, without status migrainosus; G89.4 Chronic pain syndrome; I25.10 Atherosclerotic heart disease of native coronary artery without angina pectoris; G57.93 Unspecified mononeuropathy of bilateral lower limbs; E78.5 Hyperlipidemia, unspecified; M19.90 Unspecified osteoarthritis, unspecified site; Z16.24 Resistance to multiple antibiotics; Z91.048 Other nonmedicinal substance allergy status; Z79.899 Other long term (current) drug therapy; Z88.0 Allergy status to penicillin; Z88.1 Allergy status to other antibiotic agents; Z91.018 Allergy to other foods; Z90.49 Acquired absence of other specified parts of digestive tract; Z87.891 Personal history of nicotine dependence; Z92.21 Personal history of antineoplastic chemotherapy; Z83.3 Family history of diabetes mellitus; Z82.49 Family history of ischemic heart disease and other diseases of the circulatory system; Z80.9 Family history of malignant neoplasm, unspecified
CPT/HCPCS: 22901; 44970; 49650; S2900; 36415; 64486; 80053; 81003; 82150; 83690; 84484; 85025; 88302; 88304; 93005; 96361; 96372; 96374; 99285

== ENCOUNTER 2019-09-04 11:57 | Inpatient (IN) | payer OTHER ==
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
[2019-09-04 13:11] LABS: Basophils % (A) 1 %; Eosinophils # (A) 0.1 k/uL (0-0.7); Eosinophils % (A) 1 %; HGB 14.4 gm/dL (13.0-17.5); Hyperchromasia Slight; Lymphocytes # (A) 2.1 k/uL (1.0-4.8); Lymphocytes % (A) 37 %; MCH 29.4 pg (25.0-35.0); MCHC 34.3 g/dL (31.0-37.0); MCV 85.5 fL (80.0-100.0); Monocytes # (A) 0.2 k/uL (0-1.0); Monocytes % (A) 4 %; Neutrophils # (A) 3.3 k/uL (1.3-7.7); Neutrophils % (A) 57 %; Platelet Count 199 k/uL (150-450); RBC 4.91 m/uL (4.30-5.90); WBC 5.8 k/uL (3.8-10.6)
[2019-09-04 13:15] LABS: ALT 34 U/L (4-49); AST 23 U/L (17-59); African American GFR (CKD) >90 (>60 ml/min/1.73 sqM); Albumin 4.2 g/dL (3.5-5.0); Alkaline Phosphatase 63 U/L (38-126); Anion Gap 9 mmol/L; Blood Urea Nitrogen 14 mg/dL (9-20); Calcium 9.1 mg/dL (8.4-10.2); Carbon Dioxide 24 mmol/L (22-30); Chloride 105 mmol/L (98-107); Glucose 129 mg/dL (74-99); Magnesium 1.9 mg/dL (1.6-2.3); Non-African American GFR(CKD) >90 (>60 ml/min/1.73 sqM); Potassium 3.6 mmol/L (3.5-5.1); Sodium 138 mmol/L (137-145); Total Bilirubin 0.7 mg/dL (0.2-1.3); Total Protein 6.8 g/dL (6.3-8.2)
[2019-09-04 13:24] LABS: INR 0.9 (<1.2); Partial Thromboplastin Time 24.8 sec (22.0-30.0); Prothrombin Time 9.9 sec (9.0-12.0)
--- NOTE | 2019-09-04 13:53 | CT ---
EXAMINATION TYPE: CT angio chest DATE OF EXAM: 09/04/2019 1:18 PM COMPARISON: Previous study dated 03/30/2014 HISTORY: Chest pain, SOB CT DLP: 523.9 mGycm Automated exposure control for dose reduction was used. CONTRAST: CTA scan of the thorax is performed with IV Contrast, patient injected with 100 mL of Isovue 370, pul monary embolism protocol. . FINDINGS: There is limited dependent atelectasis at the dependent portions of the lungs. There is no significant axillary, mediastinal or hilar adenopathy. There is no evidence of pulmonary embolus. The aorta is normal in caliber without evidence of dissect ion. There is no pleural or pericardial fluid. The heart is not enlarged. Visualized portions of the upper abdomen are normal. There is mild hypertrophic spondylosis within th e spine. IMPRESSION: THIS EXAMINATION IS NEGATIVE FOR PULMONARY EMBOLUS.
[2019-09-04] MEDS ORDERED: KETOROLAC 30 MG/ML 1 ML VIAL IVP STA (14:13)
[2019-09-04] MEDS ORDERED: ASPIRIN 325 MG TAB PO STA (14:34)
[2019-09-04] MEDS ORDERED: ACETAMINOPHEN TAB 325 MG TAB PO PRN (14:42)
[2019-09-04] MEDS ORDERED: MORPHINE SULFATE 4 MG/ML SYRINGE IV PRN (14:42)
[2019-09-04] MEDS ORDERED: IBUPROFEN 400 MG TAB PO PRN (14:42)
[2019-09-04] MEDS ORDERED: NALOXONE 0.4 MG/ML 1 ML VIAL IV PRN (14:42)
[2019-09-04 17:43] LABS: Glucose,Whole Blood 105 mg/dL (75-99)
[2019-09-04] MEDS ORDERED: SODIUM CHLORIDE 0.9% 1,000 ML IV ONE (18:05)
[2019-09-04] MEDS ORDERED: HYDROmorphone 1 MG/ML 1 ML SYRINGE IVP STA (18:14)
[2019-09-04] MEDS ORDERED: NON FORMULARY DRUG (Naproxen Sodium 220 MG) PO PRN (19:35)
[2019-09-04] MEDS ORDERED: ALPRAZolam 0.5 MG TAB PO PRN (19:35)
[2019-09-04] MEDS ORDERED: IBUPROFEN 200 MG TAB PO PRN (19:35)
[2019-09-04] MEDS ORDERED: MIDODRINE 5 MG TAB PO SCH (21:00)
[2019-09-04] MEDS: GABAPENTIN 300 MG CAP PO SCH (21:44)
[2019-09-04] MEDS: MELOXICAM 7.5 MG TAB PO SCH (21:44)
[2019-09-04] MEDS: PANTOPRAZOLE 40 MG TABLET PO SCH (21:52)
[2019-09-04] MEDS: HYDROmorphone 1 MG/ML 1 ML SYRINGE IVP PRN (23:12)
[2019-09-05] MEDS: HYDROmorphone 1 MG/ML 1 ML SYRINGE IVP PRN ×3 (04:54→20:32)
[2019-09-05] MEDS: PANTOPRAZOLE 40 MG TABLET PO SCH (06:27)
[2019-09-05 07:17] LABS: African American GFR (CKD) >90 (>60 ml/min/1.73 sqM); Anion Gap 7 mmol/L; Blood Urea Nitrogen 15 mg/dL (9-20); Calcium 8.9 mg/dL (8.4-10.2); Carbon Dioxide 23 mmol/L (22-30); Chloride 107 mmol/L (98-107); Glucose 92 mg/dL (74-99); Non-African American GFR(CKD) >90 (>60 ml/min/1.73 sqM); Sodium 137 mmol/L (137-145)
[2019-09-05 07:22] LABS: Magnesium 2.1 mg/dL (1.6-2.3); Potassium 4.1 mmol/L (3.5-5.1)
--- NOTE | 2019-09-05 08:32 | P.CRDCN ---
History of Present Illness Consult date: 09/05/19 Requesting physician: Kal Blackmon Consult reason: chest pain Chief complaint: chest pain History of present illness: this is a 54-year-old gentleman with history of hypertension, arthr itis, AML status post chemotherapy, neuropathy, GERD, he also states that he had a myocardial infarction in 2009, never had an intervention. He did undergo cardiac catheterization in October 2017 which revealed normal coronary arteries at bedtime. He is a nonsmoker, nondrinker. 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 Nassar as his cash control specialist but he does state that he had a stress test and [facility] office within the past one year which was reported to be normal according to him. He presents to the hospital with symptoms of left-sided chest discomfort that worsens with deep breathing, he states that he's been having it off and on for the past week, increasing in frequency and intensity.According to the patient, he has had no recent fever or chills, no upper respiratory infection, he did have a recent infection in one of his fingers, requiring some drainage and brief period of antibiotics.his discomfort as somewhat sharp in nature. EKG on presentation here shows a normal sinus rhythm with no acute changes. A CT of the chest was performed which was negative for pulmonary embolism.blood pressure 122/70 with a heart rate in the 60s, 97% on room air.blood cell count is normal, hemoglobin 14.4, platelet count 199. Sodium 137, potassium 4.1, BUN 15, creatinine 0.7.magnesium 1.9, troponins were negative 3. At the time of my examination this morning, patient states he still has pain which she is rating at about a 6 on a pain scale, sitting comfortably in bed, no shortness of breath. Pain worsens with taking deep breath. After taking the history and physical of this patient, and dictating, I was informedby the charge nurse on the cardiac unit that the patient had an A- Team called on him last night.the patient apparently had had excruciating chest pain was given 4 mg of IV morphine, shortly thereafter became hypotensive with the blood pressure 58/30, heart rate in the 30s, and was down to 80% on room air. For this reason he was transferred to the cardiac unit. There were No nurses notes in the chart indicating this episode. Past Medical History Past Medical History: Cancer, Chest Pain / Angina, GERD/Reflux, Hearing Disorder / Deafness, Hyperlipidemia, Hypertension, Memory Impairment, Myocardial Infarction ([place]), Musculoskeletal Disorder, Neurologic Disorder, Osteoarthritis (OA), Pneumonia, Respiratory Disorder, Syncope Additional Past Medical History / Comment(s): migraines, heart murmer from - prolapsed mitral valve, pain in rt hip and down leg, lower legs and and ankles sensitive to touch, neuropathy rt left and foot, AML/APL leukemia,"has had irradiated blood transfusions" c-diff x 2 in 2004 and 2014. stress test 2009 and 2017, short term memory loss, chronic lower back pain, broncitis, emphysema Last Myocardial Infarction Date:: 2009 History of Any Multi-Drug Resistant Organisms: C-DIFF Date of last positivie culture/infection: 02/20/2013 MDRO Source:: stool Past Surgical History: Appendectomy, Back Surgery, Cholecystectomy, Orthopedic Surgery Additional Past Surgical History / Comment(s): PICC line/removed, bone marrow biopsy X 5, sinus surgery x 2, pilonidal cyst, rt shoulder rotator cuff, burak foot surgery, port right upper chest/later removed, Rt knee arthroscopy x 2, rt knee meniscus repair, back sx-"had nerves burned" Past Anesthesia/Blood Transfusion Reactions: No Reported Reaction Additional Past Anesthesia/Blood Transfusion Reaction / Comment(s): frantz serna Additional Psychological History / Comment(s): 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 Smoking Status: Former smoker Past Alcohol Use History: None Reported Additional Past Alcohol Use History / Comment(s): started smoking at age 17(1981) worked up yo 1.5 ppd and quit 1992 Past Drug Use History: None Reported - Past Family History Mother Family Medical History: Cancer Father History Unknown: Yes Family Medical History: Coronary Artery Disease (CAD), Diabetes Mellitus Medications and Allergies Home Medications Medication Instructions Recorded Confirmed Type Omeprazole [PriLOSEC] 20 mg PO BID 09/18/14 09/04/19 History Lisinopril [Zestril] 10 mg PO QAM 04/12/15 09/04/19 History Gabapentin [Neurontin] 600 mg PO BID 08/27/15 09/04/19 History amLODIPine [Norvasc] 10 mg PO QAM 08/27/15 09/04/19 History ALPRAZolam [Xanax] 0.5 mg PO HS PRN 11/12/18 09/04/19 History Naproxen Sodium [Aleve] 220 mg PO DAILY PRN 11/14/18 09/04/19 History Ibuprofen [Motrin Ib] 600 mg PO TID PRN 09/04/19 09/04/19 History Meloxicam [Mobic] 15 mg PO HS 09/04/19 09/04/19 History Midodrine HCl 5 mg PO HS 09/04/19 09/04/19 History Allergies Allergy/AdvReac Type Severity Reaction Status Date / Time Penicillins Allergy Severe Rash/Hives, Verified 09/04/19 14:57 Nausea moxifloxacin HCl AdvReac Intermediate Nausea Verified 09/04/19 14:57 [From Avelox] cephalexin monohydrate AdvReac c-diff Verified 09/04/19 14:57 [From Keflex] MOLD AdvReac Severe Dyspnea, Uncoded 09/04/19 14:57 Watery Eyes, Runny Nose mushroom AdvReac Dyspnea Uncoded 09/04/19 14:57 Physical Exam Vitals: Vital Signs Temp Pulse Pulse Pulse Resp BP BP 09/05/19 04:00 97.6 F 65 18 123/77 09/05/19 03:39 55 L 18 09/05/19 00:00 97.9 F 65 18 120/66 09/04/19 20:00 97.5 F L 73 20 119/74 09/04/19 19:02 74 18 118/75 09/04/19 18:00 97.4 F L 58 L 18 103/68 09/04/19 17:44 62 92/58 09/04/19 17:40 48 L 97/61 09/04/19 17:35 31 L 58/36 09/04/19 15:50 97.4 F L 61 18 152/89 09/04/19 15:45 98.6 F 09/04/19 15:32 98.6 F 71 18 132/81 09/04/19 14:31 71 18 141/93 09/04/19 13:18 72 17 09/04/19 12:03 98.0 F 76 18 155/88 Pulse Ox 09/05/19 04:00 97 09/05/19 03:39 09/05/19 00:00 96 09/04/19 20:00 96 09/04/19 19:02 99 09/04/19 18:00 100 09/04/19 17:44 96 09/04/19 17:40 96 09/04/19 17:35 80 L 09/04/19 15:50 99 09/04/19 15:45 09/04/19 15:32 98 09/04/19 14:31 98 09/04/19 13:18 09/04/19 12:03 98 Intake and Output 09/04/19 09/05/19 09/05/19 22:59 06:59 14:59 Intake Total 120 340 Output Total 300 Balance 120 40 Intake: Oral 120 340 Output: Urine 300 Other: Voiding Method Toilet Weight 96.842 kg 95.8 kg PHYSICAL EXAMINATION: GENERAL:54-year-old gentleman in no acute distress at the time of my examination HEENT: Head is atraumatic, normocephalic. Pupils equal, round. Sclera anicteric. Conjunctiva are clear. Mucous membranes of the mouth are moist. Neck is supple. There is no elevated jugular venous pressure.no carotid bruit is heard. HEART EXAMINATION: [Heart S1, S2 normal. No murmur or gallop heard.] CHEST EXAMINATION:[ Lungs are clear to auscultation and precussion. No chest wall tenderness is noted on palpation or with deep breathing.] ABDOMEN: [ Soft, nontender. Bowel sounds are heard. No organomegaly noted]. EXTREMITIES:[ 2+ peripheral pulses with no evidence of peripheral edema and no calf tenderness noted]. NEUROLOGIC [patient is awake, alert and oriented 3.] . Results 09/04/19 12:30 09/05/19 06:07 Cardiac Enzymes 09/04/19 09/04/19 09/04/19 Range/Units 12:30 12:30 18:13 AST 23 (17-59) U/L Troponin I <0.012 <0.012 (0.000-0.034) ng/mL 09/04/19 Range/Units 23:51 AST (17-59) U/L Troponin I <0.012 (0.000-0.034) ng/mL Coagulation 09/04/19 Range/Units 12:30 PT 9.9 (9.0-12.0) sec APTT 24.8 (22.0-30.0) sec CBC 09/04/19 Range/Units 12:30 WBC 5.8 (3.8-10.6) k/uL RBC 4.91 (4.30-5.90) m/uL Hgb 14.4 (13.0-17.5) gm/dL Hct 42.0 (39.0-53.0) % Plt Count 199 (150-450) k/uL Comprehensive Metabolic Panel 09/04/19 09/05/19 Range/Units 12:30 06:07 Sodium 138 137 (137-145) mmol/L Potassium 3.6 4.1 (3.5-5.1) mmol/L Chloride 105 107 (98-107) mmol/L Carbon Dioxide 24 23 (22-30) mmol/L BUN 14 15 (9-20) mg/dL Creatinine 0.70 0.76 (0.66-1.25) mg/dL Glucose 129 H 92 (74-99) mg/dL Calcium 9.1 8.9 (8.4-10.2) mg/dL AST 23 (17-59) U/L ALT 34 (4-49) U/L Alkaline Phosphatase 63 (38-126) U/L Total Protein 6.8 (6.3-8.2) g/dL Albumin 4.2 (3.5-5.0) g/dL Current Medications Generic Name Dose Route Start Last Admin Trade Name Freq PRN Reason Stop Dose Admin Acetaminophen 650 mg 09/04/19 14:42 Tylenol Tab PO Q6HR PRN Mild Pain or Fever > 100.5 Alprazolam 0.5 mg 09/04/19 19:35 09/04/19 21:44 Xanax PO 0.5 mg HS PRN Administration Anxiety Amlodipine Besylate 10 mg 09/05/19 09:00 Norvasc PO QAM ALIZE Gabapentin 600 mg 09/04/19 21:00 09/04/19 21:44 Neurontin PO 600 mg BID ALIZE Administration Hydromorphone HCl 1 mg 09/04/19 22:18 09/05/19 04:54 Dilaudid IVP 1 mg Q4HR PRN Administration Pain Ibuprofen 400 mg 09/04/19 14:42 09/04/19 21:43 Motrin PO 400 mg Q6HR PRN Administration Mild Pain or Fever > 100.5 Lisinopril 10 mg 09/05/19 09:00 Zestril PO QAM ALIZE Meloxicam 15 mg 09/04/19 21:00 09/04/19 21:44 Mobic PO 15 mg HS ALIZE Administration Midodrine 5 mg 09/04/19 21:00 09/04/19 21:44 Proamatine PO 5 mg HS ALIZE Administration Morphine Sulfate 4 mg 09/04/19 14:42 09/04/19 16:57 Morphine Sulfate (Inj) IV 4 mg Q4HR PRN Administration Severe Pain Naloxone HCl 0.2 mg 09/04/19 14:42 Narcan IV Q2M PRN Opioid Reversal Pantoprazole Sodium 40 mg 09/04/19 21:00 09/05/19 06:27 Protonix PO 40 mg [id number] ALIZE Administration Intake and Output 09/04/19 09/05/19 09/05/19 22:59 06:59 14:59 Intake Total 120 340 Output Total 300 Balance 120 40 Intake: Oral 120 340 Output: Urine 300 Other: Voiding Method Toilet Weight 96.842 kg 95.8 kg 09/04/19 12:30 09/05/19 06:07 EKG Interpretations (text) EKG shows normal sinus rhythm with no acute changes. Assessment and Plan Plan: assessment and plan #1 chest pain, atypical for acute coronary syndrome. Pleuritic in nature. Troponins are negative 3. EKG shows normal sinus rhythm with no acute changes. Echocardiogram with Doppler study performed in October 2017 revealed a normal left ventricular systolic function, cardiac catheterization was also performed during that admission which revealed normal coronary arteries. Patient also states that he had a stress test within this past year at [facility] .#2 hypertension #3 AML, status post chemo #4 GERD #5 neuropathy #6 questionable prior myocardial infarction, no intervention Plan We will obtain an echocardiogram with Doppler study. We will also obtain a copy of the recent stress test over this past one year which was performed in [facility] office. We will obtain a sed rate. patient's episode of hypotension and bradycardia through the night last night was likely secondary to morphine administration. Pulmonary embolism has been ruled out.further recommendations to follow. DNP note has been reviewed, I agree with a documented findings and plan of care. Patient was seen and examined.
[2019-09-05] MEDS: LISINOPRIL 10 MG TAB PO SCH (08:55)
[2019-09-05] MEDS: GABAPENTIN 300 MG CAP PO SCH ×2 (08:55→20:31)
[2019-09-05] MEDS: amLODIPine 10 MG TAB PO SCH (08:55)
--- NOTE | 2019-09-05 15:12 | P.HPIM ---
History of Present Illness H&P Date: 09/05/19 Chief Complaint: chest. Pain History of presenting complaint: This is a pleasant 54-year-old patient of Dr. Posey. Chronic stable medical conditions include GERD, hyperlipidemia, hypertension, osteoarthritis, prolapsed mitral valve, neuropathy, history of leukemia, crit low back pain. Patient in October 2017 had a cardiac catheterization that showed normal coronaries. Patient for about a week has been having episodes of left-sided chest pain. It is sharp. It comes and goes. Worse with deep breath and body movement. No fever no chills. No cough. Does not radiate to the neck or arm. Not related to activity. Admitted to rule out a cardiac cause. Patient yesterday evening. Patient did receive some morphine. Did become bradycardic and hypotensive and w as moved from observation unit to the cardiology floor. 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 Smoked for about 13 years pack and half a day stopped in 1992. No significant alcohol history Physical examination: VITAL SIGNS: 97.5, 73, 20, 11 9/74, 96% room air GENERAL: BMI 29.5, laying bed comfortable. EYES: Pupils equal. Conjunctiva normal. HEENT: External appearance of nose and ears normal, oral cavity grossly normal. NECK: JVD not raised; masses not palpable. HEART: First and second heart sounds are normal; no edema. LUNGS: Respiratory rate normal; clear to auscultation. ABDOMEN: Soft, nontender, liver spleen not palpable, no masses palpable. PSYCH: Alert and oriented x3; mood and affect normal. NEUROLOGICAL: Cranial nerves grossly intact; no facial asymmetry, power and sensation grossly intact. LYMPHATICS: No lymph nodes palpable in the axilla and neck INVESTIGATIONS, reviewed in the clinical context: EKG-normal sinus rhythm chest CTA-negative for PE Assessment: -This is a patient was had left-sided precordial chest pain for about a 1 week duration which is sharp in nature. It is pleuritic in nature and worse with deep breath and body movements. Does not sound cardiac. More likely pleurisy likely viral. Patient also had negative cardiac catheterization 2017 with normal coronaries. -GERD -Hyperlipidemia -Essential hypertension -Prolapsed mitral valvular-peripheral neuropathy -Chronic low back pain Plan: College he was consulted to rule out a cardiac cause. Other medications resumed. Care was discussed with the patient. Questions were answered. Past Medical History Past Medical History: Cancer, Chest Pain / Angina, GERD/Reflux, Hearing Disorder / Deafness, Hyperlipidemia, Hypertension, Memory Impairment, Myocardial Infarction ([place]), Musculoskeletal Disorder, Neurologic Disorder, Osteoarthritis (OA), Pneumonia, Respiratory Disorder, Syncope Additional Past Medical History / Comment(s): migraines, heart murmer from - prolapsed mitral valve, pain in rt hip and down leg, lower legs and and ankles sensitive to touch, neuropathy rt left and foot, AML/APL leukemia,"has had irradiated blood transfusions" c-diff x 2 in 2004 and 2014. stress test 2009 and 2018, short term memory loss, chronic lower back pain, broncitis, emphysema Last Myocardial Infarction Date:: 2009 History of Any Multi-Drug Resistant Organisms: C-DIFF Date of last positivie culture/infection: 02/20/2013 MDRO Source:: stool Past Surgical History: Appendectomy, Back Surgery, Cholecystectomy, Orthopedic Surgery Additional Past Surgical History / Comment(s): PICC line/removed, bone marrow biopsy X 5, sinus surgery x 2, pilonidal cyst, rt shoulder rotator cuff, burak foot surgery, port right upper chest/later removed, Rt knee arthroscopy x 2, rt knee meniscus repair, back sx-"had nerves burned" Past Anesthesia/Blood Transfusion Reactions: No Reported Reaction Additional Past Anesthesia/Blood Transfusion Reaction / Comment(s): clausterphobia Additional Psychological History / Comment(s): 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 Smoking Status: Former smoker Past Alcohol Use History: None Reported Additional Past Alcohol Use History / Comment(s): started smoking at age 17(1981) worked up yo 1.5 ppd and quit 1992 Past Drug Use History: None Reported - Past Family History Mother Family Medical History: Cancer Father History Unknown: Yes Family Medical History: Coronary Artery Disease (CAD), Diabetes Mellitus Medications and Allergies Home Medications Medication Instructions Recorded Confirmed Type Omeprazole [PriLOSEC] 20 mg PO BID 09/18/14 09/04/19 History Lisinopril [Zestril] 10 mg PO QAM 04/12/15 09/04/19 History Gabapentin [Neurontin] 600 mg PO BID 08/27/15 09/04/19 History amLODIPine [Norvasc] 10 mg PO QAM 08/27/15 09/04/19 History ALPRAZolam [Xanax] 0.5 mg PO HS PRN 11/12/18 09/04/19 History Naproxen Sodium [Aleve] 220 mg PO DAILY PRN 11/14/18 09/04/19 History Ibuprofen [Motrin Ib] 600 mg PO TID PRN 09/04/19 09/04/19 History Meloxicam [Mobic] 15 mg PO HS 09/04/19 09/04/19 History Midodrine HCl 5 mg PO HS 09/04/19 09/04/19 History Allergies Allergy/AdvReac Type Severity Reaction Status Date / Time Penicillins Allergy Severe Rash/Hives, Verified 09/04/19 14:57 Nausea moxifloxacin HCl AdvReac Intermediate Nausea Verified 09/04/19 14:57 [From Avelox] cephalexin monohydrate AdvReac c-diff Verified 09/04/19 14:57 [From Keflex] MOLD AdvReac Severe Dyspnea, Uncoded 09/04/19 14:57 Watery Eyes, Runny Nose mushroom AdvReac Dyspnea Uncoded 09/04/19 14:57 Physical Exam Vitals: Vital Signs Temp Pulse Pulse Pulse Resp BP BP 09/05/19 08:00 98.2 F 75 18 131/87 09/05/19 04:00 97.6 F 65 18 123/77 09/05/19 03:39 55 L 18 09/05/19 00:00 97.9 F 65 18 120/66 09/04/19 20:00 97.5 F L 73 20 119/74 09/04/19 19:02 74 18 118/75 09/04/19 18:00 97.4 F L 58 L 18 103/68 09/04/19 17:44 62 92/58 09/04/19 17:40 48 L 97/61 09/04/19 17:35 31 L 58/36 09/04/19 15:50 97.4 F L 61 18 152/89 09/04/19 15:45 98.6 F 09/04/19 15:32 98.6 F 71 18 132/81 09/04/19 14:31 71 18 141/93 09/04/19 13:18 72 17 09/04/19 12:03 98.0 F 76 18 155/88 Pulse Ox 09/05/19 08:00 97 09/05/19 04:00 97 09/05/19 03:39 09/05/19 00:00 96 09/04/19 20:00 96 09/04/19 19:02 99 09/04/19 18:00 100 09/04/19 17:44 96 09/04/19 17:40 96 09/04/19 17:35 80 L 09/04/19 15:50 99 09/04/19 15:45 09/04/19 15:32 98 09/04/19 14:31 98 09/04/19 13:18 09/04/19 12:03 98 Intake and Output 09/04/19 09/05/19 09/05/19 22:59 06:59 14:59 Intake Total 120 340 360 Output Total 300 Balance 120 40 360 Intake: Oral 120 340 360 Output: Urine 300 Other: Voiding Method Toilet # Voids 1 Weight 96.842 kg 95.8 kg Results CBC & Chem 7: 09/04/19 12:30 09/05/19 06:07 Labs: Abnormal Lab Results - Last 24 Hours (Table) 09/04/19 09/04/19 Range/Units 12:30 17:37 Glucose 129 H (74-99) mg/dL POC Glucose (mg/dL) 105 H (75-99) mg/dL Thrombosis Risk Factor Assmnt - Choose All That Apply Any of the Below Risk Factors Present?: Yes Each Factor Represents 1 point: Age 41-60 years, Obesity (BMI >25) Other Risk Factors: No Other congenital or acquired thrombophilia - If yes, enter type in comment: No Thrombosis Risk Factor Assessment Total Risk Factor Score: 2 Thrombosis Risk Factor Assessment Level: Low Risk
[2019-09-05] MEDS: diphenhydrAMINE 50 MG CAP PO PRN (18:05)
[2019-09-05 18:35] VITALS: RESP 18
[2019-09-05] MEDS: MELOXICAM 7.5 MG TAB PO SCH (20:31)
[2019-09-06] MEDS: HYDROmorphone 1 MG/ML 1 ML SYRINGE IVP PRN ×4 (00:50→13:15)
[2019-09-06] MEDS: diphenhydrAMINE 50 MG CAP PO PRN (05:55)
[2019-09-06] MEDS: PANTOPRAZOLE 40 MG TABLET PO SCH (05:55)
[2019-09-06] MEDS ORDERED: DOBUTamine DRIP for NUC MED 500 MG in DEXTROSE/WATER 1 250ML.BAG IV ONE (08:00)
[2019-09-06] MEDS: GABAPENTIN 300 MG CAP PO SCH (08:37)
[2019-09-06] MEDS: LISINOPRIL 10 MG TAB PO SCH (08:37)
[2019-09-06] MEDS: amLODIPine 10 MG TAB PO SCH (08:37)
--- NOTE | 2019-09-06 10:33 | ECHOF ---
Referral Reason:CP MEASUREMENTS -------- HEIGHT: 182.9 cm WEIGHT: 95.7 kg BP: 132/82 RVIDd: 2.8 cm (< 3.3) IVSd: 0.9 cm (0.6 - 1.1) LVIDd: 4.4 cm (3.9 - 5.3) LVPWd: 1.2 cm (0.6 - 1.1) IVSs: 1.2 cm LVIDs: 3.2 cm LVPWs: 1.6 cm LAESV Index (A-L): 25.83 ml/m Ao Diam: 2.9 cm (2.0 - 3.7) AV Cusp: 2.1 cm (1.5 - 2.6) LA Diam: 3.4 cm (2.7 - 3.8) MV EXCURSION: 14.230 mm (> 18.000) MV EF SLOPE: 108 mm/s (70 - 150) EPSS: 0.6 cm MV E Allan: 0.80 m/s MV DecT: 253 ms MV A Allan: 0.48 m/s MV E/A Ratio: 1.64 RAP: 5.00 mmHg RVSP: 15.84 mmHg TAPSE: 31.32 mm FINDINGS -------- Resting bradycardia (HR<60bpm). This was a technically good study. The left ventricular size is normal. There is mild concentric left ventricular hypertrophy. Overa ll left ventricular systolic function is low-normal with, an EF between 50 - 55 %. The diastolic fi lling pattern is normal for the age of the patient 8.84. The right ventricle is normal in size. The right ventricular systolic function is normal. The left atrial size is normal. Normal LA size by volume 22+/-6 ml/m2. The right atrial size is normal. The aortic valve is trileaflet and appears structurally normal. The mitral valve is normal. The mitral valve leaflets are mildly thickened. Mild mitral regurgita tion is present. The tricuspid valve appears structurally normal. Mild tricuspid regurgitation present. Right vent ricular systolic pressure is normal at < 35 mmHg. There is no pulmonic regurgitation present. The aortic root size is normal. Normal inferior vena cava with normal inspiratory collapse consistent with estimated right atrial pre ssure of 5 mmHg. There is no pericardial effusion. CONCLUSIONS -------- 1. Resting bradycardia (HR<60bpm). 2. This was a technically good study. 3. The left ventricular size is normal. 4. There is mild concentric left ventricular hypertrophy. 5. Overall left ventricular systolic function is low-normal with, an EF between 50 - 55 %. 6. The diastolic filling pattern is normal for the age of the patient 8.84 7. The right ventricle is normal in size. 8. The right ventricular systolic function is normal. 9. The left atrial size is normal. 10. Normal LA size by volume 22+/-6 ml/m2. 11. The right atrial size is normal. 12. The aortic valve is trileaflet and appears structurally normal. 13. The mitral valve is normal. 14. The mitral valve leaflets are mildly thickened. 15. Mild mitral regurgitation is present. 16. The tricuspid valve appears structurally normal. 17. Mild tricuspid regurgitation present. 18. Right ventricular systolic pressure is normal at < 35 mmHg. 19. There is no pulmonic regurgitation present. 20. The aortic root size is normal. 21. Normal inferior vena cava with normal inspiratory collapse consistent with estimated right atrial pressure of 5 mmHg. 22. There is no pericardial effusion. [employer]: Rosey Barry RDCS
[2019-09-06 13:19] VITALS: BP 128/82; PULSE 62; TEMP 98
--- NOTE | 2019-09-06 14:35 | P.PN ---
Subjective Progress Note Date: 09/06/19 this is a 54-year-old gentleman with history of hypertension, arthritis, AML status post chemotherapy, neuropathy, GERD, he also states that he had a myocardial infarction in 2009, never had an intervention. He did undergo cardiac catheterization in October 2017 which revealed normal coronary arteries at bedtime. He is a nonsmoker, nondrinker. 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 He presents to the hospital with symptoms of left- sided chest discomfort that worsens with deep breathing, he states that he's been having it off and on for the past week, increasing in frequency and intensity.According to the patient, he has had no recent fever or chills, no upper respiratory infection, he did have a recent infection in one of his fingers, requiring some drainage and brief period of antibiotics.his discomfort as somewhat sharp in nature. EKG on presentation here shows a normal sinus rhythm with no acute changes. A CT of the chest was performed which was negative for pulmonary embolism.blood pressure 122/70 with a heart rate in the 60s, 97% on room air.blood cell count is normal, hemoglobin 14.4, platelet count 199. Sodium 137, potassium 4.1, BUN 15, creatinine 0.7.magnesium 1.9, troponins were negative 3. At the time of my examination this morning, patient states he still has pain which she is rating at about a 6 on a pain scale, sitting comfortably in bed, no shortness of breath. Pain worsens with taking deep breath. After taking the history and physical of this patient, and dictating, I was informedby the charge nurse on the cardiac unit that the patient had an A- Team called on him last night.the patient apparently had had excruciating chest pain was given 4 mg of IV morphine, shortly thereafter became hypotensive with the blood pressure 58/30, heart rate in the 30s, and was down to 80% on room a ir. For this reason he was transferred to the cardiac unit. There were No nurses notes in the chart indicating this episode. 09/06/2019 Patient seen and examined this morning,hemodynamically stable. Echocardiogram with Doppler study revealed a normal left ventricular systolic function. Dobutamine echocardiographic study negative for any reversible ischemia. Objective - Vital Signs Vital signs: Vital Signs Temp 98 F 09/06/19 12:00 Pulse 62 09/06/19 12:00 Resp 18 09/06/19 12:00 BP 128/82 09/06/19 12:00 Pulse Ox 98 09/06/19 12:00 Intake & Output 09/05/19 09/06/19 09/06/19 18:59 06:59 18:59 Intake Total 1080 Balance 1080 Weight 95.8 kg 95.708 kg Intake: Oral 1080 Other: Voiding Method Toilet Toilet # Voids 1 1 - Exam PHYSICAL EXAMINATION: GENERAL:54-year-old gentleman in no acute distress at the time of my examination HEENT: Head is atraumatic, normocephalic. Pupils equal, round. Sclera anicteric. Conjunctiva are clear. Mucous membranes of the mouth are moist. Neck is supple. There is no elevated jugular venous pressure.no carotid bruit is heard. HEART EXAMINATION: [Heart S1, S2 normal. No murmur or gallop heard.] CHEST EXAMINATION:[ Lungs are clear to auscultation and precussion. No chest wall tenderness is noted on palpation or with deep breathing.] ABDOMEN: [ Soft, nontender. Bowel sounds are heard. No organomegaly noted]. EXTREMITIES:[ 2+ peripheral pulses with no evidence of peripheral edema and no calf tenderness noted]. NEUROLOGIC [patient is awake, alert and oriented 3.] - Labs CBC & Chem 7: 09/04/19 12:30 09/05/19 06:07 Assessment and Plan Plan: assessment and plan #1 chest pain, atypical for acute coronary syndrome. Pleuritic in nature. Troponins are negative 3. EKG shows normal sinus rhythm with no acute changes. Echocardiogram with Doppler study performed in October 2017 revealed a normal left ventricular systolic function, cardiac catheterization was also performed during that admission which revealed normal coronary arteries. Patient also states that he had a stress test within this past year at [facility] .#2 hypertension #3 AML, status post chemo #4 GERD #5 neuropathy #6 questionable prior myocardial infarction, no intervention Plan Echocardiogram with Doppler study revealed a normal left ventricular systolic function and dobutamine echocardiographic study was negative for any reversible ischemia. from our perspective he may be able to be discharged home today DNP note has been reviewed, I agree with a documented findings and plan of care. Patient was seen and examined.
--- NOTE | 2019-09-06 20:46 | EST ---
EXERCISE STRESS DATE OF SERVICE: 09/06/2019. INDICATION: Chest pain. AGE: 54 SEX: M HT: WT: 211 PROTOCOL: Dobutamine Stress Echo STAGE: IV DURATION OF EXERCISE: HEART RATE REST: 70 BLOOD PRESSURE REST: 130/89 MAXIMUM HEART RATE ACHIEVED: 148 MAXIMUM BLOOD PRESSURE: 158/65 85% MPHR: 143 100% MPHR: 168 METS: CLINICAL INFORMATION: Chest pain. STRESS DATA: Heart rate 75, pressure is 130/89 mmHg. Baseline EKG showed sinus rhythm. Dobutamine infusion at the dose of 10 mcg/kg per minute was initiated and increased to 30 mcg/kg per minute. Max heart rate was 148 which is about 88% of maximum predicted heart rate. Maximum blood pressure was 158/65 mmHg. Clinically, the patient did not have any symptoms of chest pain or discomfort and the EKG did not show any significant ST or T- wave abnormalities concerning for ischemia. ECHOCARDIOGRAM IMAGES: On echocardiogram images from parasternal long axis view, parasternal short axis view, apical 4 chamber and apical 2 chamber view, were obtained as the baseline images, at low dose dobutamine infusion, at peak heart rate as well as on recovery. The echocardiogram images showed good augmentation in the left ventricular systolic function without any evidence of wall motion abnormalities concerning for ischemia. CONCLUSION: 1. Normal EKG in response to dobutamine. 2. Normal echocardiogram in response to dobutamine. 3. Essentially normal dobutamine stress echocardiogram for the patient. MMODL / IJN: [id number] /
--- NOTE | 2019-09-06 22:48 | P.DS ---
Providers Date of admission: 09/04/19 18:17 Expected date of discharge: 09/06/19 Attending physician: Kal Blackmon Consults: 09/04/19 14:43 Consult Physician Routine Consulting Provider: Enrike Cardenas Consult Reason/Comments: CP Do you want consulting provider notified?: Yes [facility] Course: History of presenting complaint: This is a pleasant 54-year-old patient of Dr. Posey. Chronic stable medical conditions include GERD, hyperlipidemia, hypertension, osteoarthritis, prolapsed mitral valve, neuropathy, history of leukemia, crit low back pain. Patient in October 2017 had a cardiac catheterization that showed normal coronaries. Patient for about a week has been having episodes of left-sided chest pain. It is sharp. It comes and goes. Worse with deep breath and body movement. No fever no chills. No cough. Does not radiate to the neck or arm. Not related to activity. Admitted to rule out a cardiac cause. Patient did receive some morphine. Did become bradycardic and hypotensive and was moved from observation unit to the cardiology floor. Troponins were negative. Underwent a stress test that was negative. Patient presentation is felt to be viral pleurisy. Discussed with the patient. Consultation: Dr. VC Mcmanus from cardiology Physical examination: VITAL SIGNS: 97.8, 74, 18, 131/86, 99% room air GENERAL: Sitting up, comfortable EYES: Pupils equal. Conjunctiva normal. HEENT: External appearance of nose and ears normal, oral cavity grossly normal. NECK: JVD not raised; masses not palpable. HEART: First and second heart sounds are normal; no edema. LUNGS: Respiratory rate normal; clear to auscultation. ABDOMEN: Soft, nontender, liver spleen not palpable, no masses palpable. PSYCH: Alert and oriented x3; mood and affect normal. INVESTIGATIONS, reviewed in the clinical context: EKG-normal sinus rhythm chest CTA-negative for PE 2-D echo-year 50-55% Dobutamine echocardiogram negative Assessment: -This is a patient was had left-sided precordial chest pain for about a 1 week duration which is sharp in nature. It is pleuritic in nature and worse with deep breath and body movements. Does not sound cardiac. Patient also had negative cardiac catheterization 2017 with normal coronaries. Probable diagnosis-viral pleurisy -GERD -Hyperlipidemia -Essential hypertension -Prolapsed mitral valvular-peripheral neuropathy -Chronic low back pain Disposition: Home Patient Condition at Discharge: Stable Plan - Discharge Summary Discharge Rx Participant: No New Discharge Prescriptions: Continue Omeprazole [PriLOSEC] 20 mg PO BID Lisinopril [Zestril] 10 mg PO QAM Gabapentin [Neurontin] 600 mg PO BID amLODIPine [Norvasc] 10 mg PO QAM ALPRAZolam [Xanax] 0.5 mg PO HS PRN PRN Reason: Anxiety Meloxicam [Mobic] 15 mg PO HS Discontinued Naproxen Sodium [Aleve] 220 mg PO DAILY PRN PRN Reason: Pain Ibuprofen [Motrin Ib] 600 mg PO TID PRN PRN Reason: Pain No Action Midodrine HCl 5 mg PO HS Discharge Medication List Omeprazole [PriLOSEC] 20 mg PO BID 09/18/14 [History] Lisinopril [Zestril] 10 mg PO QAM 04/12/15 [History] Gabapentin [Neurontin] 600 mg PO BID 08/27/15 [History] amLODIPine [Norvasc] 10 mg PO QAM 08/27/15 [History] ALPRAZolam [Xanax] 0.5 mg PO HS PRN 11/12/18 [History] Meloxicam [Mobic] 15 mg PO HS 09/04/19 [History] Midodrine HCl 5 mg PO HS 09/04/19 [History] Follow up Appointment(s)/Referral(s): José Luis Posey MD [Primary Care Provider] - 10/07/19 8:20 am (-previously scheduled appointment -unable to be seen earlier. is out of office) Gustabo Jauregui MD [STAFF PHYSICIAN] - 09/16/19 8:45 am () Patient Instructions/Handouts: Chest Pain (DC) Discharge Disposition: HOME SELF-CARE
== END 2019-09-06 15:22 | disposition home or self-care (01) | DRG 194 ==
LOC: EC 11:57 → 1SOBS 14:42 → 3SCARD 17:50 → OBSVTOIN 18:17
PROVIDERS: ADMIT Hospitalist; ATTEND Hospitalist
DX: R09.1 Pleurisy (principal); C92.00 Acute myeloblastic leukemia, not having achieved remission; I95.9 Hypotension, unspecified; E78.5 Hyperlipidemia, unspecified; G62.9 Polyneuropathy, unspecified; G89.29 Other chronic pain; H91.90 Unspecified hearing loss, unspecified ear; I10 Essential (primary) hypertension; I25.2 Old myocardial infarction; J43.9 Emphysema, unspecified; K21.9 Gastro-esophageal reflux disease without esophagitis; F41.9 Anxiety disorder, unspecified; G43.909 Migraine, unspecified, not intractable, without status migrainosus; M19.90 Unspecified osteoarthritis, unspecified site; R41.3 Other amnesia; M54.5 Low back pain; R00.1 Bradycardia, unspecified; I34.1 Nonrheumatic mitral (valve) prolapse; Z79.1 Long term (current) use of non-steroidal anti-inflammatories (NSAID); Z79.899 Other long term (current) drug therapy; Z87.01 Personal history of pneumonia (recurrent); Z87.891 Personal history of nicotine dependence; Z88.1 Allergy status to other antibiotic agents; Z88.0 Allergy status to penicillin; Z91.018 Allergy to other foods; Z91.048 Other nonmedicinal substance allergy status; Z92.21 Personal history of antineoplastic chemotherapy; Z90.49 Acquired absence of other specified parts of digestive tract; Z82.49 Family history of ischemic heart disease and other diseases of the circulatory system; Z83.3 Family history of diabetes mellitus; Z80.9 Family history of malignant neoplasm, unspecified
CPT/HCPCS: 36415; 71275; 80048; 80053; 83690; 83735; 83880; 84484; 85025; 85610; 85652; 85730; 93005; 93306; 93351; 96374; 99285

== ENCOUNTER 2019-10-27 12:06 | Emergency (ER) | payer OTHER ==
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
[2019-10-27 12:49] LABS: Basophils # (A) 0.1 k/uL (0-0.2); Basophils % (A) 2 %; Eosinophils # (A) 0.2 k/uL (0-0.7); Eosinophils % (A) 3 %; HCT 43.5 % (39.0-53.0); HGB 15.5 gm/dL (13.0-17.5); Hyperchromasia Slight; Lymphocytes # (A) 2.9 k/uL (1.0-4.8); Lymphocytes % (A) 40 %; MCH 30.8 pg (25.0-35.0); MCHC 35.7 g/dL (31.0-37.0); MCV 86.1 fL (80.0-100.0); Mean Platelet Volume 7.2; Monocytes # (A) 0.4 k/uL (0-1.0); Monocytes % (A) 6 %; Neutrophils # (A) 3.5 k/uL (1.3-7.7); Neutrophils % (A) 49 %; Platelet Count 240 k/uL (150-450); RBC 5.05 m/uL (4.30-5.90); RDW 12.9 % (11.5-15.5); WBC 7.2 k/uL (3.8-10.6)
--- NOTE | 2019-10-27 12:55 | XR ---
EXAMINATION TYPE: XR chest 2V DATE OF EXAM: 10/27/2019 COMPARISON: Prior chest x-ray 11/13/2017 HISTORY: Difficulty breathing TECHNIQUE: Frontal and lateral views of the chest are obtained. FINDINGS: There is no focal air space opacity, pleural effusion, or pneumothorax seen. The cardiac silhouette size is within normal limits. The osseous structures are intact, there is thoracic spond ylosis. There are overlying cardiac leads. IMPRESSION: No acute cardiopulmonary process.
[2019-10-27 13:02] LABS: ALT 44 U/L (4-49); AST 28 U/L (17-59); African American GFR (CKD) >90 (>60 ml/min/1.73 sqM); Albumin 4.3 g/dL (3.5-5.0); Alkaline Phosphatase 100 U/L (38-126); Anion Gap 9 mmol/L; Blood Urea Nitrogen 8 mg/dL (9-20); Calcium 8.9 mg/dL (8.4-10.2); Carbon Dioxide 24 mmol/L (22-30); Chloride 105 mmol/L (98-107); Glucose 99 mg/dL (74-99); Non-African American GFR(CKD) >90 (>60 ml/min/1.73 sqM); Potassium 3.7 mmol/L (3.5-5.1); Sodium 138 mmol/L (137-145); Total Bilirubin 0.6 mg/dL (0.2-1.3); Total Protein 6.8 g/dL (6.3-8.2)
[2019-10-27 13:03] LABS: D-Dimer 0.32 mg/L FEU (<0.60); INR 0.9 (<1.2); Partial Thromboplastin Time 23.8 sec (22.0-30.0); Prothrombin Time 9.6 sec (9.0-12.0)
[2019-10-27 13:52] VITALS: BP 143/99; PULSE 73; RESP 18; TEMP 97.6
[2019-10-27] MEDS ORDERED: HEPARIN SODIUM,PORCINE 5,000 UNIT/ML 1 ML VIAL IV ONE (14:07)
[2019-10-27] MEDS ORDERED: HEPARIN SOD,PORK IN 0.45% NACL 25,000 UNIT in 0.45% NACL 1 250ML.BAG IV SCH (14:15)
== END 2019-10-27 14:13 | disposition home or self-care (01) ==
LOC: EC 12:06
DX: R06.00 Dyspnea, unspecified (principal); R06.02 Shortness of breath; R07.9 Chest pain, unspecified; I10 Essential (primary) hypertension; E78.5 Hyperlipidemia, unspecified; K21.9 Gastro-esophageal reflux disease without esophagitis; I25.2 Old myocardial infarction; Z79.1 Long term (current) use of non-steroidal anti-inflammatories (NSAID); Z79.899 Other long term (current) drug therapy; Z88.0 Allergy status to penicillin; Z88.5 Allergy status to narcotic agent; Z88.1 Allergy status to other antibiotic agents; Z91.018 Allergy to other foods
CPT/HCPCS: 36415; 71046; 80053; 83605; 83880; 84484; 85025; 85379; 85610; 85730; 93005; 99285

== ENCOUNTER 2020-02-10 11:49 | Day surgery (SDC) | payer OTHER ==
[2020-02-09 12:56] VITALS: BMI 30.2
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
[~2020-02-10 11:49] MED LIST changes: +ACETAMINOPHEN TAB 500 MG TAB PO STA; +DEXAMETHASONE SOD PHOSPHATE 10 MG/ML 1 ML VIAL IV ONE; +GABAPENTIN 300 MG CAP PO STA; -IV FLUID CONTINUATION 1,000 ML IV ONE; -LIDOCAINE 1% 20 ML VIAL (10MG/ML) FOR IV START INTRADERMA ONE; +ONDANSETRON 4 MG/2 ML VIAL IVP ONE; +TAMSULOSIN 0.4 MG CAP.ER.24H PO STA; -ePHEDrine 50 MG/ML 1 ML AMP IVP ONE
[2020-02-10] MEDS ORDERED: LIDOCAINE 1% (10MG/ML) FOR IV START INTRADERMA ONE (12:27)
[2020-02-10 12:40] LABS: HCT 47.2 % (39.0-53.0); HGB 16.2 gm/dL (13.0-17.5); MCH 29.7 pg (25.0-35.0); MCHC 34.4 g/dL (31.0-37.0); MCV 86.4 fL (80.0-100.0); Mean Platelet Volume 7.1; Platelet Count 220 k/uL (150-450); RBC 5.46 m/uL (4.30-5.90); RDW 13.1 % (11.5-15.5); WBC 5.9 k/uL (3.8-10.6)
[2020-02-10] MEDS ORDERED: fentaNYL (PF) 50 MCG/ML 2 ML AMP ONE (13:58)
[2020-02-10] MEDS ORDERED: GLYCOPYRROLATE 0.2 MG/ML 2 ML VIAL ONE (13:58)
[2020-02-10] MEDS ORDERED: ePHEDrine SULFATE/0.9% NACL/PF 50 MG/5 ML SYRINGE IV ONE (13:58)
[2020-02-10] MEDS ORDERED: MIDAZOLAM 2 MG/2 ML VIAL ONE (13:58)
[2020-02-10] MEDS ORDERED: ATROPINE SULFATE 0.1 MG/ML 10ML SYRINGE ONE (13:58)
[2020-02-10] MEDS ORDERED: SUCCINYLCHOLINE CHLORIDE 100 MG/5 ML SYR IV ONE (13:58)
[2020-02-10] MEDS ORDERED: PROPOFOL 10 MG/ML 20 ML VIAL IV ONE (13:58)
[2020-02-10] MEDS ORDERED: ROCURONIUM BROMIDE 10 MG/ML 5 ML VIAL IV ONE (13:58)
[2020-02-10] MEDS ORDERED: NEOSTIGMINE 1 MG/ML 10 ML VIAL ONE (13:58)
[2020-02-10] MEDS ORDERED: LIDOCAINE 1% INJ 10MG/ML (20 ML MDV) ONE (13:58)
[2020-02-10] MEDS ORDERED: BUPIVACAIN-EPI 0.25%-1:200,000 30 ML VIAL SQ ONE (14:02)
[2020-02-10] MEDS ORDERED: diphenhydrAMINE 50 MG/ML 1 ML VIAL IVP PRN (14:54)
--- NOTE | 2020-02-10 14:57 | P.HPADDEND ---
H&P Addendum H&P Addendum Date: 02/10/20 Patient reports right-sided pain including right groin pain. Will proceed with lysis of adhesions.
--- NOTE | 2020-02-10 15:03 | P.OP ---
Date of Procedure: 02/10/20 Description of Procedure: SURGEON: MARY HOOD MD PREOPERATIVE DIAGNOSES: 1. History of peritoneal adhesions 2. Right-sided abdominal pain 3. Polyneuropathy, chronic pain disorder 4. History of leukemia status post chemotherapy 5. History of previous bilateral inguinal hernias 6. History of myocardial infarction 7. Hypertensive heart disease 8. Gastroesophageal reflux disease 9. Sigmoid diverticulosis 10. 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 Generalized anxiety disorder 12. Migraine disorder POSTOPERATIVE DIAGNOSES: 1. Peritoneal adhesions, pelvis 2. Right-sided abdominal pain 3. Polyneuropathy, chronic pain disorder 4. History of leukemia status post chemotherapy 5. History of previous bilateral inguinal hernias 6. History of myocardial infarction 7. Hypertensive heart disease 8. Gastroesophageal reflux disease 9. Sigmoid diverticulosis 10. 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 Generalized anxiety disorder 12. Migraine disorder OPERATION: 1. Robotic-assisted da Carolyn Xi laparoscopic lysis of adhesions ANESTHESIA: General with local anesthetic ESTIMATED BLOOD LOSS: 5 mL. SPECIMENS: None COMPLICATIONS: None. FINDINGS: 1. No recurrent hernia is identified of the lower abdomen or new hernias of the abdominal wall. 2. Peritoneal adhesions of sigmoid colon to the left lower quadrant and small bowel to right lower quadrant identified and lysed without enterotomies. INDICATIONS: The patient is a 54-year-old male who presents previous history of abdominal surgeries and risk for peritoneal adhesions. He reports right-sided abdominal pain. Surgical intervention was described with lysis of adhesions. Benefits and risks of the procedure however not limited to bleeding, infection, need for further surgery and persistent pain were reviewed. Shared medical decision making was completed with the patient and his and informed consent was obtained. DESCRIPTION: A peritoneal block was requested for the patient's history of chronic pain and performed per anesthesia. The patient was brought to the operating room and initially laid in supine position. The abdomen had been prepped and draped in standard sterile fashion. Ioban draping was also placed. Prior to incision, a timeout protocol was confirmed with surgical team regarding patient's name including procedures to be performed and location along the right groin. Initial positioning for the robotic assisted ports were selected whereby 20 cm superior to the target anatomy, 0 degree 5 mm laparoscopic trocar entry was performed at the left upper quadrant. The abdomen was insufflated to 15 mmHg which he had tolerated well. Diagnostic laparoscopy demonstrated no injury to bowel, viscera or mesentery. No recurrent inguinal hernias were identified. No abdominal wall hernias of the right upper abdomen was identified. Peritoneal adhesions of the bilateral pelvis was identified. Next, along the epigastrium, 8 mm robot trocar was placed. An 8-mm robotic trocar was placed under direct visualization at the right upper quadrant. An 12 mm port was placed at the left upper quadrant after exchanging the 5 mm trocar. All trocars were positioned between 10-cm apart from each other. The [employer] XI robot was primed, draped, prepared for docking along upper abdomen of the patient. The patient was positioned 16 steep Trendelenburg position. I then went to the [employer] Xi console. The clinical assistant professor was at bedside for exchange of the robot arms and equipment. Initial attention was brought to the right lower quadrant where adhesion of the abdominal wall to the small bowel was and taken down sharply using scissors. Adhesions to his previous inguinal hernia repair mesh surgery was identified and divided. Similarly, the left side had adhesions and were also scissors. No enterotomies or colotomies occurred. The robot was undocked from the patient's bedside. I then rescrubbed into the case. Insufflation was released from the abdominal cavity and all instruments were removed from the abdominal cavity. The rest of incisions were reapproximated using 4-0 Monocryl in a running subcuticular fashion. Incisions were cleansed using dilute hydrogen peroxide. Liquid glue was applied to the skin. At the end of the procedure, the needle, sponge and instrument counts had been verified correct by the surgical sales representative. The patient had tolerated the procedure well and was taken to the postanesthesia care unit in stable condition. Plan - Discharge Summary Discharge Rx Participant: Yes New Discharge Prescriptions: Continue Omeprazole [PriLOSEC] 20 mg PO BID Lisinopril [Zestril] 10 mg PO QAM Gabapentin [Neurontin] 900 mg PO QAM amLODIPine [Norvasc] 10 mg PO QAM Meloxicam [Mobic] 15 mg PO HS Midodrine HCl 5 mg PO HS Gabapentin [Neurontin] 600 mg PO HS Discharge Medication List Omeprazole [PriLOSEC] 20 mg PO BID 09/18/14 [History] Lisinopril [Zestril] 10 mg PO QAM 04/12/15 [History] Gabapentin [Neurontin] 900 mg PO QAM 08/27/15 [History] amLODIPine [Norvasc] 10 mg PO QAM 08/27/15 [History] Meloxicam [Mobic] 15 mg PO HS 09/04/19 [History] Midodrine HCl 5 mg PO HS 09/04/19 [History] Gabapentin [Neurontin] 600 mg PO HS 02/09/20 [History] Follow up Appointment(s)/Referral(s): Mary Hood MD [STAFF PHYSICIAN] - 1 Week (Telehealth available) Patient Instructions/Handouts: Lysis of Abdominal Adhesions (DC) Activity/Diet/Wound Care/Special Instructions: No lifting over 10 pounds in 5 days, 02/15/20. January shower. No bath tub soaks for two weeks until February 23 Diet as tolerated. Use Tylenol and ibuprofen or Aleve scheduled for the next 24-48 hours for best pain relief. Use ice along incisions for the today to prevent swelling. Discharge Disposition: HOME SELF-CARE
[2020-02-10 15:08] VITALS: TEMP 97.3
[2020-02-10] MEDS: HYDROmorphone 0.5 MG/0.5 ML SYRINGE IVP PRN ×2 (15:37→15:54)
[2020-02-10 16:03] VITALS: RESP 18
[2020-02-10 16:14] VITALS: BP 107/54; PULSE 78
== END 2020-02-10 16:49 | disposition home or self-care (01) ==
LOC: OR 11:49
PROVIDERS: ATTEND Surgery Plastic and Reconstructive Surgery
DX: K66.0 Peritoneal adhesions (postprocedural) (postinfection) (principal); I25.2 Old myocardial infarction; I11.9 Hypertensive heart disease without heart failure; K21.9 Gastro-esophageal reflux disease without esophagitis; K57.30 Diverticulosis of large intestine without perforation or abscess without bleeding; G62.0 Drug-induced polyneuropathy; T45.1X5A Adverse effect of antineoplastic and immunosuppressive drugs, initial encounter; F41.1 Generalized anxiety disorder; G89.29 Other chronic pain; G43.909 Migraine, unspecified, not intractable, without status migrainosus; J44.9 Chronic obstructive pulmonary disease, unspecified; E78.5 Hyperlipidemia, unspecified; M19.90 Unspecified osteoarthritis, unspecified site; E66.9 Obesity, unspecified; H91.90 Unspecified hearing loss, unspecified ear; F40.240 Claustrophobia; M54.5 Low back pain; R41.3 Other amnesia; Z85.6 Personal history of leukemia; Z79.899 Other long term (current) drug therapy; Z88.5 Allergy status to narcotic agent; Z88.0 Allergy status to penicillin; Z88.1 Allergy status to other antibiotic agents; Z90.49 Acquired absence of other specified parts of digestive tract; Z98.890 Other specified postprocedural states; Z68.30 Body mass index [BMI] 30.0-30.9, adult; Z88.8 Allergy status to other drugs, medicaments and biological substances; Z87.01 Personal history of pneumonia (recurrent); Z86.19 Personal history of other infectious and parasitic diseases; Z87.891 Personal history of nicotine dependence; Z83.3 Family history of diabetes mellitus; Z82.49 Family history of ischemic heart disease and other diseases of the circulatory system; Z91.048 Other nonmedicinal substance allergy status; Z87.19 Personal history of other diseases of the digestive system
CPT/HCPCS: 85027; 87635; 44180; J2250; J1100; J2710; J0690; J2405; J2001; J0461; J3010; J0330; J2704; J1170

== ENCOUNTER 2020-07-13 14:12 | Day surgery (SDC) | payer OTHER ==
[2020-07-12 11:16] VITALS: BMI 30.1
[~2020-07-13 14:12] MED LIST changes: -ACETAMINOPHEN TAB 500 MG TAB PO STA; -GABAPENTIN 300 MG CAP PO STA; -TAMSULOSIN 0.4 MG CAP.ER.24H PO STA
--- NOTE | 2020-07-13 14:39 | P.GSHP ---
History of Present Illness H&P Date: 07/13/20 CHIEF COMPLAINT: History of intra-abdominal adhesions HISTORY OF PRESENT ILLNESS: The patient is a 54-year-old male who presents with history of intra-abdominal adhesions and moderate to severe recurrent abdominal. He now presents for diagnostic laparoscopy including lysis of adhesions. PAST MEDICAL HISTORY: Please see list. PAST SURGICAL HISTORY: Please see list. MEDICATIONS: Please see list. ALLERGIES: Please see list. SOCIAL HISTORY: No illicit drug use FAMILY HISTORY: No reports of Crohn disease or ulcerative colitis. REVIEW OF ORGAN SYSTEMS: CONSTITUTIONAL: No reports of fevers or chills. GI: Denies any blood in stools or constipation. PHYSICAL EXAM: VITAL SIGNS: Stable GENERAL: Well-developed pleasant and in no acute distress. HEENT: No scleral icterus. Extraocular movements grossly intact. Moist buccal mucosa. NECK: Supple without lymphadenopathy. CHEST: Unlabored respirations. Equal bilateral excursions. CARDIOVASCULAR: Regular rate and rhythm. Distal 2+ pulses. ABDOMEN: Soft, diffuse abdominal tenderness. No peritonitis. MUSCULOSKELETAL: No clubbing, cyanosis, or edema. ASSESSMENT: 1. History of multiple abdominal surgeries. 2. Intra-abdominal adhesions. PLAN: 1. Robotic lysis of adhesions were described in detail including risk of injury to the intestine, need for further surgery, and open technique. 2. DVT prophylaxis. 3. Antibiotic prophylaxis. 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 short term memory loss, chronic lower back pain, admission in 2018 w/chest pain that was dx. as pleurisy,small cell/small fiber neuropathy Last Myocardial Infarction Date:: 2009 History of Any Multi-Drug Resistant Organisms: C-DIFF Date of last positivie culture/infection: 02/20/2013 MDRO Source:: stool Past Surgical History: Appendectomy, Back Surgery, Cholecystectomy, Orthopedic Surgery Additional Past Surgical History / Comment(s): PICC line/removed, bone marrow biopsy X 5, sinus surgery x 2, pilonidal cyst, rt shoulder rotator cuff, burak foot surgery, port right upper chest/later removed, Rt knee arthroscopy x 2, rt knee meniscus repair, back sx-"had nerves burned", robotic laparoscopic lysis of adhesions in January 2020 Past Anesthesia/Blood Transfusion Reactions: No Reported Reaction Additional Past Anesthesia/Blood Transfusion Reaction / Comment(s): claustrophobia Smoking Status: Former smoker - Past Family History Mother Family Medical History: Cancer Father History Unknown: Yes Family Medical History: Coronary Artery Disease (CAD), Diabetes Mellitus Medications and Allergies Home Medications Medication Instructions Recorded Confirmed Type Omeprazole [PriLOSEC] 20 mg PO BID 09/18/14 07/12/20 History lisinopriL [Zestril] 10 mg PO QAM 04/12/15 07/12/20 History Gabapentin [Neurontin] 900 mg PO QAM 08/27/15 07/12/20 History amLODIPine [Norvasc] 10 mg PO QAM 08/27/15 07/12/20 History Midodrine HCl 5 mg PO HS 09/04/19 07/12/20 History Gabapentin [Neurontin] 600 mg PO HS 02/09/20 07/12/20 History tiZANidine HCL [Zanaflex] 2 mg PO HS 07/12/20 07/12/20 History Allergies Allergy/AdvReac Type Severity Reaction Status Date / Time Penicillins Allergy Severe Rash/Hives, Verified 07/12/20 10:51 Nausea morphine Allergy Anaphylaxis Verified 07/12/20 10:51 moxifloxacin HCl AdvReac Intermediate Nausea Verified 07/12/20 10:51 [From Avelox] cephalexin monohydrate AdvReac c-diff Verified 07/12/20 10:51 [From Keflex] MOLD AdvReac Severe Dyspnea, Uncoded 07/12/20 10:51 Watery Eyes, Runny Nose mushroom AdvReac Dyspnea Uncoded 07/12/20 10:51
[2020-07-13] MEDS ORDERED: LIDOCAINE 1% (10MG/ML) FOR IV START INTRADERMA ONE (15:09)
[2020-07-13 15:17] LABS: Basophils # (A) 0.1 k/uL (0-0.2); Basophils % (A) 1 %; Eosinophils # (A) 0.1 k/uL (0-0.7); Eosinophils % (A) 2 %; HCT 44.4 % (39.0-53.0); HGB 15.7 gm/dL (13.0-17.5); Lymphocytes # (A) 2.5 k/uL (1.0-4.8); Lymphocytes % (A) 42 %; MCH 31.4 pg (25.0-35.0); MCHC 35.3 g/dL (31.0-37.0); MCV 88.9 fL (80.0-100.0); Mean Platelet Volume 7.1; Monocytes # (A) 0.4 k/uL (0-1.0); Monocytes % (A) 6 %; Neutrophils # (A) 2.8 k/uL (1.3-7.7); Neutrophils % (A) 47 %; Platelet Count 250 k/uL (150-450); RBC 4.99 m/uL (4.30-5.90); RDW 13.2 % (11.5-15.5); WBC 5.9 k/uL (3.8-10.6)
[2020-07-13] MEDS ORDERED: HEPARIN SODIUM,PORCINE 5,000 UNIT/ML 1 ML VIAL ONE (17:13)
[2020-07-13] MEDS ORDERED: fentaNYL (PF) 50 MCG/ML 2 ML AMP ONE (17:28)
[2020-07-13] MEDS ORDERED: PROPOFOL 10 MG/ML 20 ML VIAL IV ONE (17:28)
[2020-07-13] MEDS ORDERED: ROCURONIUM 10 MG/ML (10 ML VIAL) IV ONE (17:28)
[2020-07-13] MEDS ORDERED: SUCCINYLCHOLINE CHLORIDE 100 MG/5 ML SYR IV ONE (17:28)
[2020-07-13] MEDS ORDERED: ePHEDrine SULFATE/0.9% NACL/PF 50 MG/5 ML SYRINGE IV ONE (17:28)
[2020-07-13] MEDS ORDERED: MIDAZOLAM 2 MG/2 ML VIAL ONE (17:28)
[2020-07-13] MEDS ORDERED: GLYCOPYRROLATE 0.2 MG/ML 2 ML VIAL ONE (17:28)
[2020-07-13] MEDS ORDERED: NEOSTIGMINE 1 MG/ML 10 ML VIAL ONE (17:28)
[2020-07-13] MEDS ORDERED: BUPIVACAINE (PF) 0.25% 30 ML VIAL SQ ONE (17:51)
[2020-07-13] MEDS ORDERED: LACTATED RINGERS 1,000 ML IV ONE ×2 (18:22→19:45)
[2020-07-13 18:31] VITALS: TEMP 97.1
[2020-07-13] MEDS: HYDROmorphone 0.5 MG/0.5 ML SYRINGE IVP PRN ×2 (18:49→19:03)
--- NOTE | 2020-07-13 18:56 | P.PCN ---
Date of Procedure: 07/13/20 Description of Procedure: SURGEON: MARY HOOD MD PREOPERATIVE DIAGNOSES: 1. Previous history of bilateral inguinal hernia repair 2. History of multiple abdominal surgeries 3. History of peritoneal adhesions 4. Chemotherapy-induced neuropathy 5. Chronic pain syndrome 6. Gastroesophageal reflux disease 7. Hypertensive heart disease 8. AML leukemia in remission 9. Chronic obstructive pulmonary disease 10. History of myocardial infarction 11. Chronic right lower quadrant abdominal pain POSTOPERATIVE DIAGNOSES: 1. Previous history of bilateral inguinal hernia repair 2. History of multiple abdominal surgeries 3. History of peritoneal adhesions 4. Chemotherapy-induced neuropathy 5. Chronic pain syndrome 6. Gastroesophageal reflux disease 7. Hypertensive heart disease 8. AML leukemia in remission 9. Chronic obstructive pulmonary disease 10. History of myocardial infarction 11. Chronic right lower quadrant abdominal pain 12. Left pelvic pain OPERATION: 1. Robotic-assisted da Carolyn Xi laparoscopic lysis of adhesions 2. Robotic-assisted da Carolyn Xi laparoscopic revision of previous right inguinal hernia repair COMPLICATIONS: None. Anesthesia: GETA, local Estimated Blood Loss (ml): 5 Pathology: none sent Condition: stable Disposition: same day OPERATIVE FINDINGS: 1. Left pelvic pain due to adhesions omentum to abdominal wall lysed 2. Adhesions along right upper quadrant lysed, omentum to abdominal wall 3. Small defect along previous right inguinal hernia mesh repair at the medial aspect, less than 1 cm in size oversewn with suture repair INDICATIONS: The patient is a 54-year-old male who presents with complicated medical history of chemotherapy-induced neuropathy, chronic right lower quadrant abdominal pain, history multiple abdominal adhesions, previous peritoneal adhesions who presents with new left lower quadrant abdominal pain including recurrent right lower quadrant abdominal pain. Surgical intervention of lysis of adhesions was described given his history of severe adhesive band disease. Informed consent was obtained. Robotic assisted laparoscopic approach was described. Benefits and risks of the procedure including but not limited to bleeding, infection, injury to the small bowel was described. Informed consent w as obtained. DESCRIPTION OF PROCEDURE: Patient was brought to the operating room, placed in supine position. After general induction, the abdomen had been prepped and draped in standard sterile fashion. The robotic da Carolyn XI system was primed. After a timeout protocol was performed, the patient had been prepped and draped in standard sterile fashion. A 5 mm 0 degrees laparoscopic trocar entry was performed along the left upper quadrant. The abdomen was insufflated to 15 mmHg pressure which he tolerated well. Diagnostic laparoscopy demonstrated adhesions involving the left pelvis including right upper quadrant of omentum to abdominal wall. A small less than 1 cm defect medial aspect of the previous right inguinal hernia repair was identified. The small bowel was unremarkable without evidence of dilation or suggestion of obstruction. No injury to the bowel, viscera or mesentery was identified. Next, three 8 mm robotic ports were placed along the upper abdomen. The camera 8-mm port was initially docked along the epigastrium. Please note that the ports were placed at least 8 cm away from the target anatomy. The robot was docked along the right lateral abdomen. The patient was repositioned in reverse Trendelenburg position of 14- degrees. Instruments were interchanged using ports for a grasper, vessel sealer, and scissors with cautery. Instruments were interchanged by the safety admin assistant including Bovie cautery scissors. I had sat at the console. Lysis of adhesions was performed along the left pelvis of the patient's location of pain and using Bovie cautery with scissors. Similarly, omental adhesions of the right upper quadrant was taken down. No involvement of small bowel was found. At the medial aspect of the previous right inguinal mesh repair, a small indentation was identified as a potential area of weakness. The defect was opened and explored without recurrence or hernia identified. The explored defect was oversewn using 2-0 V LOC. Hemostasis was excellent and abdomen was dry upon completion. Completion lysis of adhesions confirmed no recurrent inguinal or umbilical hernias. The robot was undocked. All pneumoperitoneum and instruments were evacuated from the abdominal cavity. The incisions were reapproximated using 4-0 Monocryl in an interrupted subcuticular fashion. Please note along the trocar sites, local anesthetic was placed as a field block prior to insertion of all instruments. Liquid glue was applied to the skin. At the end of the procedure needle, sponge, and instrument count had been verified correct by the surgical appliance fitter. The patient was transferred to postanesthesia care unit in stable condition. Intraoperative images including findings were described to the patients family. Plan - Discharge Summary Discharge Rx Participant: Yes New Discharge Prescriptions: New Ibuprofen [Motrin] 600 mg PO Q8HR PRN #30 tab PRN Reason: Pain Acetaminophen Tab [Tylenol Tab] 1,000 mg PO Q6HR PRN #30 tablet Continue Omeprazole [PriLOSEC] 20 mg PO BID lisinopriL [Zestril] 10 mg PO QAM Gabapentin [Neurontin] 900 mg PO QAM amLODIPine [Norvasc] 10 mg PO QAM Midodrine HCl 5 mg PO HS Gabapentin [Neurontin] 600 mg PO HS tiZANidine HCL [Zanaflex] 2 mg PO HS Discharge Medication List Omeprazole [PriLOSEC] 20 mg PO BID 09/18/14 [History] lisinopriL [Zestril] 10 mg PO QAM 04/12/15 [History] Gabapentin [Neurontin] 900 mg PO QAM 08/27/15 [History] amLODIPine [Norvasc] 10 mg PO QAM 08/27/15 [History] Midodrine HCl 5 mg PO HS 09/04/19 [History] Gabapentin [Neurontin] 600 mg PO HS 02/09/20 [History] tiZANidine HCL [Zanaflex] 2 mg PO HS 07/12/20 [History] Acetaminophen Tab [Tylenol Tab] 1,000 mg PO Q6HR PRN #30 tablet 07/13/20 [Rx] Ibuprofen [Motrin] 600 mg PO Q8HR PRN #30 tab 07/13/20 [Rx] Follow up Appointment(s)/Referral(s): Mary Hood MD [STAFF PHYSICIAN] - 07/18/20 Patient Instructions/Handouts: Lysis of Abdominal Adhesions (IP) Activity/Diet/Wound Care/Special Instructions: Lifting as tolerated. May shower. No bath tub soaks for two weeks until July 27. Diet as tolerated. Use Tylenol and ibuprofen/Aleve scheduled for the next 24-48 hours for best pain relief. Use ice along incisions for the today to prevent swelling. Discharge Disposition: HOME SELF-CARE
[2020-07-13] MEDS ORDERED: KETOROLAC 30 MG/ML 1 ML VIAL ONE (19:53)
[2020-07-13] MEDS ORDERED: KETOROLAC 15 MG/ML 1 ML VIAL IVP ONE (19:56)
[2020-07-13] MEDS ORDERED: HYDROmorphone 1 MG/ML 1 ML SYRINGE IVP PRN (20:27)
[2020-07-13] MEDS ORDERED: TAMSULOSIN 0.4 MG CAP.ER.24H PO ONE (20:31)
[2020-07-13 20:32] VITALS: BP 118/78; PULSE 95; RESP 16
[2020-07-13] MEDS ORDERED: GABAPENTIN 300 MG CAP PO SCH (21:00)
== END 2020-07-13 21:06 | disposition home or self-care (01) ==
LOC: OR 14:12 → 1SOBS 20:33 → OR 20:33
PROVIDERS: ATTEND Surgery Plastic and Reconstructive Surgery
DX: K66.0 Peritoneal adhesions (postprocedural) (postinfection) (principal); G89.4 Chronic pain syndrome; I11.9 Hypertensive heart disease without heart failure; I25.2 Old myocardial infarction; G43.909 Migraine, unspecified, not intractable, without status migrainosus; I34.1 Nonrheumatic mitral (valve) prolapse; J44.9 Chronic obstructive pulmonary disease, unspecified; C92.01 Acute myeloblastic leukemia, in remission; H91.90 Unspecified hearing loss, unspecified ear; G62.0 Drug-induced polyneuropathy; T45.1X5A Adverse effect of antineoplastic and immunosuppressive drugs, initial encounter; K21.9 Gastro-esophageal reflux disease without esophagitis; E78.5 Hyperlipidemia, unspecified; Z79.899 Other long term (current) drug therapy; Z98.890 Other specified postprocedural states; Z90.49 Acquired absence of other specified parts of digestive tract; Z88.5 Allergy status to narcotic agent; Z88.0 Allergy status to penicillin; Z88.1 Allergy status to other antibiotic agents; Z88.8 Allergy status to other drugs, medicaments and biological substances; M19.90 Unspecified osteoarthritis, unspecified site; Z87.01 Personal history of pneumonia (recurrent); R41.3 Other amnesia; Z86.19 Personal history of other infectious and parasitic diseases; Z87.891 Personal history of nicotine dependence; F40.240 Claustrophobia; Z83.3 Family history of diabetes mellitus; Z82.49 Family history of ischemic heart disease and other diseases of the circulatory system; Z80.9 Family history of malignant neoplasm, unspecified; Z91.018 Allergy to other foods; Z91.09 Other allergy status, other than to drugs and biological substances
CPT/HCPCS: 85025; 44180; J2250; J1644; J1100; J2710; J0690; J2405; J3010; J1885; J0330; J2704; J1170

== ENCOUNTER → 2020-08-10 | Outpatient (CLI) | payer OTHER ==
--- NOTE | 2020-08-10 20:16 | CT ---
EXAMINATION TYPE: CT urogram wo/w con DATE OF EXAM: 08/10/2020 COMPARISON: 11/14/2018 HISTORY: RLQ pain, radiates into back. Hx bilateral hernia sx, appy, marisa. Hx AML. CT DLP: 3847.2 mGycm CONTRAST: Performed and with IV Contrast, patient injected with 100 mL of Isovue 300. CT Urography was performed with unenhanced followed by enhanced images of the kidneys, ureters and ur inary bladder. Delayed images were obtained. 3d reconstruction was perfromed at a separate work sta tion. FINDINGS: KIDNEYS/BLADDER: No hydronephrosis. No nephrolithiasis. No distinct renal mass. Urinary bladder gr ossly unremarkable. LUNG BASES-: No visible nodule. No infiltrate. LIVER/GB: Mild hepatic steatosis. The gallbladder surgically absent. No space occupying hepatic lesio n. Biliary tree is of normal caliber. PANCREAS: No inflammation. No distinct mass. SPLEEN: No splenic enlargement. No lesion seen. ADRENALS: No nodule. No thickening. BOWEL: Normal appendix. Normal bowel caliber. No inflammation. GENITAL ORGANS: No gross abnormality. LYMPH NODES: No greater than 1cm abdominal or pelvic lymph nodes are appreciated. AORTA: No significant abnormality. OSSEOUS STRUCTURES: No significant abnormality is seen. OTHER: No significant additional abnormality is seen. IMPRESSION: 1. No distinct abnormality of the kidneys ureters or urinary bladder.
== END | disposition home or self-care (01) ==
LOC: RADCTMAIN 15:58
PROVIDERS: ATTEND Urology
DX: N32.0 Bladder-neck obstruction (principal); R10.31 Right lower quadrant pain; Z88.0 Allergy status to penicillin; Z88.6 Allergy status to analgesic agent
CPT/HCPCS: 74178; 74400; Q9967

== ENCOUNTER → 2020-11-13 | Outpatient (CLI) | payer OTHER ==
--- NOTE | 2020-11-13 11:48 | XR ---
Lumbar spine HISTORY: Back pain 3 views of the lumbar spine Correlation to prior exam 09/06/2017 There is multilevel spondylosis which has progressed in the interval. Surgical clips noted incidental ly in the right upper quadrant. Bone mineralization, lumbar vertebral body height and alignment are s table. There is some loss of disc height L4-5, L5-S1, L2-3 and L1-2. Sclerosis present in the posteri or elements of the lower lumbar spine. IMPRESSION: Degenerative disc disease and facet arthropathy
== END | disposition home or self-care (01) ==
LOC: RADXRMAIN 11:05
PROVIDERS: ATTEND Family Medicine
DX: M51.36 Other intervertebral disc degeneration, lumbar region (principal); M47.26 Other spondylosis with radiculopathy, lumbar region
CPT/HCPCS: 72100

== ENCOUNTER 2021-05-21 12:56 | Emergency (ER) | payer OTHER ==
[2021-05-21 13:28] VITALS: RESP 18
[2021-05-21] MEDS ORDERED: LIDOCAINE 5% PATCH TOPICAL STA (14:21)
[2021-05-21] MEDS ORDERED: KETOROLAC 15 MG/ML 1 ML VIAL IVP STA (14:21)
[2021-05-21 14:52] LABS: Basophils # (A) 0.1 k/uL (0-0.2); Basophils % (A) 1 %; Eosinophils # (A) 0.1 k/uL (0-0.7); Eosinophils % (A) 2 %; HCT 44.5 % (39.0-53.0); HGB 15.6 gm/dL (13.0-17.5); Lymphocytes # (A) 2.3 k/uL (1.0-4.8); Lymphocytes % (A) 35 %; MCH 31.2 pg (25.0-35.0); MCV 89.1 fL (80.0-100.0); Mean Platelet Volume 7.2; Monocytes # (A) 0.4 k/uL (0-1.0); Monocytes % (A) 6 %; Neutrophils # (A) 3.6 k/uL (1.3-7.7); Neutrophils % (A) 55 %; Platelet Count 232 k/uL (150-450); Poikilocytosis Slight; RBC 4.99 m/uL (4.30-5.90); RDW 14.4 % (11.5-15.5); WBC 6.6 k/uL (3.8-10.6)
[2021-05-21 15:00] LABS: ALT 42 U/L (4-49); AST 29 U/L (17-59); African American GFR (CKD) >90 (>60 ml/min/1.73 sqM); Albumin 4.6 g/dL (3.5-5.0); Alkaline Phosphatase 87 U/L (38-126); Amylase 57 U/L (30-110); Anion Gap 9 mmol/L; Blood Urea Nitrogen 12 mg/dL (9-20); Calcium 9.6 mg/dL (8.4-10.2); Carbon Dioxide 25 mmol/L (22-30); Chloride 103 mmol/L (98-107); Glucose 91 mg/dL (74-99); Lipase 143 U/L (23-300); Non-African American GFR(CKD) >90 (>60 ml/min/1.73 sqM); Potassium 3.9 mmol/L (3.5-5.1); Sodium 137 mmol/L (137-145); Total Bilirubin 0.6 mg/dL (0.2-1.3)
[2021-05-21 15:05] LABS: INR 0.9 (<1.2); Partial Thromboplastin Time 23.5 sec (22.0-30.0); Prothrombin Time 9.8 sec (9.0-12.0)
--- NOTE | 2021-05-21 15:24 | CT ---
EXAMINATION TYPE: CT abdomen pelvis w con DATE OF EXAM: 05/21/2021 COMPARISON: 11/14/2018 HISTORY: Right sided pain with prior hernia repair. CT DLP: 1357.9 mGycm CONTRAST: CT scan of the abdomen and pelvis is performed without Oral Contrast and with IV Contrast, patient in jected with 100 mL of Isovue 300. FINDINGS: LUNG BASES-: No visible nodule. No infiltrate. LIVER/GB: The gallbladder surgically absent. Changes of fatty hepatic infiltration. No space occup evelio hepatic lesion. Biliary tree is of normal caliber. PANCREAS: No inflammation. No distinct mass. SPLEEN: No splenic enlargement. No lesion seen. ADRENALS: No nodule. No thickening. KIDNEYS/BLADDER: No hydronephrosis. No nephrolithiasis. No distinct renal mass. Urinary bladder g rossly unremarkable. BOWEL: The appendix is surgically absent. Normal bowel caliber. No inflammation. GENITAL ORGANS: No gross abnormality. LYMPH NODES: No greater than 1cm abdominal or pelvic lymph nodes are appreciated. AORTA: No significant abnormality. OSSEOUS STRUCTURES: No significant abnormality is seen. OTHER: No significant additional abnormality is seen. IMPRESSION: 1. No evidence for acute intra-abdominal process.
[2021-05-21 16:08] LABS: Appearance,Urine Clear (Clear); Bilirubin,Urine Negative (Negative); Blood,Urine Negative (Negative); Color,Urine Light Yellow; Glucose,Urine (UA) Negative (Negative); Ketones,Urine Negative (Negative); Leukocyte Esterase,Urine Negative (Negative); Nitrite,Urine Negative (Negative); PH, Urine 7.5 (5.0-8.0); Protein,Urine Negative (Negative); Urobilinogen,Urine <2.0 mg/dL (<2.0)
[2021-05-21 16:29] LABS: Specific Gravity,Urine >1.050 (1.001-1.035)
--- NOTE | 2021-05-21 16:43 | ED ---
General Adult HPI - General Chief complaint: Abdominal Pain Stated complaint: right side pain Time Seen by Provider: 05/21/21 13:50 Source: patient, RN notes reviewed Mode of arrival: ambulatory Limitations: no limitations - History of Present Illness Initial comments: I evaluated the patient when he was placed in a room.Patient is a 55-year-old male with known past medical history for abdominal cancer, angina, COPD, chronic abdominal pain, hypertension, migraines, chronic neurological deficit secondary to prior chemo use who presents emergency Department complaining of an acute exacerbation of chronic abdominal pain. He describes a chronic , achy/sharp right flank pain that has been present for months to a year that is sometimes worse with movement. He states this is chronic since he had a gallbladder removed. He states it has been relatively unchanged but noticed that it was slightly worse today. His work made him come to the emergency department for evaluation. States the pain occasionally causes some nausea but denies any emesis, diarrhea, change in flatus. Denies any chest pain, shortness breath. Denies any other abdominal pain. Denies any back pain that is new onset. States he is currently waiting for the MRI results of his thoracic spine to possibly explain the pain. He does have a follow-up appointment with his PCP in 2 days. He otherwise has no other acute complaints at this time. Patient states he has no change in his urinary frequency or habits and denies any penile discharge or hematuria. He presents emergency department over concern for his right flank pain. Denies any fevers or sick contacts. - Related Data Home Medications Medication Instructions Recorded Confirmed Omeprazole [PriLOSEC] 20 mg PO HS 09/18/14 05/21/21 lisinopriL [Zestril] 10 mg PO DAILY 04/12/15 05/21/21 Gabapentin [Neurontin] 1,200 mg PO HS 08/27/15 05/21/21 amLODIPine [Norvasc] 10 mg PO DAILY 08/27/15 05/21/21 Midodrine HCl 5 mg PO HS 09/04/19 05/21/21 Gabapentin [Neurontin] 600 mg PO DAILY 02/09/20 05/21/21 ALPRAZolam [Xanax] 0.5 mg PO HS 05/21/21 05/21/21 Loratadine-Pseudoeph 10-240 mg 1 tab PO DAILY 05/21/21 05/21/21 [Claritin-D 24 Hour] Previous Rx's Medication Instructions Recorded Lidocaine 5% Patch [Lidoderm 5% 1 patch TOPICAL DAILY PRN 7 Days 05/21/21 Patch] #7 patch Allergies Allergy/AdvReac Type Severity Reaction Status Date / Time Penicillins Allergy Severe Rash/Hives, Verified 05/21/21 14:31 Nausea morphine Allergy Anaphylaxis Verified 05/21/21 14:31 moxifloxacin HCl AdvReac Intermediate Nausea Verified 05/21/21 14:31 [From Avelox] cephalexin monohydrate AdvReac c-diff Verified 05/21/21 14:31 [From Keflex] MOLD AdvReac Severe Dyspnea, Uncoded 05/21/21 13:28 Watery Eyes, Runny Nose mushroom AdvReac Dyspnea Uncoded 05/21/21 13:28 Review of Systems ROS Statement: Those systems with pertinent positive or pertinent negative responses have been documented in the HPI. Review of Systems: CONST: Denies fever EYES: Denies blurry vision ENT: Denies nasal congestion C/V: Denies Chest pain RESP: Denies shortness of breath GI: Endorses abdominal pain : Denies dysuria SKIN: Denies rash. MSK: Denies joint pain. NEURO: Denies headache ROS Other: All systems not noted in ROS Statement are negative. 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 short term memory loss, chronic lower back pain, admission in 2018 w/chest pain that was dx. as pleurisy,small cell/small fiber neuropathy Last Myocardial Infarction Date:: 2009 History of Any Multi-Drug Resistant Organisms: C-DIFF Date of last positivie culture/infection: 02/20/2013 MDRO Source:: stool Past Surgical History: Appendectomy, Back Surgery, Cholecystectomy, Heart Catheterization, Orthopedic Surgery Additional Past Surgical History / Comment(s): PICC line/removed, bone marrow biopsy X 5, sinus surgery x 2, pilonidal cyst, rt shoulder rotator cuff, burak foot surgery, port right upper chest/later removed, Rt knee arthroscopy x 2, rt knee meniscus repair, back sx-"had nerves burned", robotic laparoscopic lysis of adhesions in January 2020 Past Anesthesia/Blood Transfusion Reactions: No Reported Reaction Additional Past Anesthesia/Blood Transfusion Reaction / Comment(s): claustrophobia Past Psychological History: Anxiety Smoking Status: Former smoker Past Alcohol Use History: None Reported Past Drug Use History: None Reported - Past Family History Mother Family Medical History: Cancer Father History Unknown: Yes Family Medical History: Coronary Artery Disease (CAD), Diabetes Mellitus General Exam - General Exam Comments Initial Comments: General: Appears in no acute distress. HEAD: Normal with no signs of head trauma. EYES: PERRLA, EOMI, conjunctiva normal, no discharge. ENT: Hearing grossly intact, normal oropharynx. RESPIRATORY: Clear breath sounds bilaterally. No wheezes, rales, or rhonchi. C/V: Regular rate and rhythm. S1 and S2 auscultated, no edema, peripheral pulses 2+ and intact throughout ABD: Abdomen soft, nondistended. Patient has mild tenderness to palpation over the right flank. No obvious masses are palpated. Skin appears unchanged. There is no peritoneal signs. No rebound tenderness. No CVA tenderness to percussion. EXT: Normal range of motion, no obvious deformity SKIN: No rashes or lesions observed on exposed skin. NEURO: Alert and oriented 4. Limitations: no limitations Course Vital Signs 05/21/21 05/21/21 13:22 16:52 Temperature 98.2 F 98 F Pulse Rate 94 65 Respiratory 18 18 Rate Blood Pressure 139/90 141/99 O2 Sat by Pulse 98 98 Oximetry Medical Decision Making - Medical Decision Making Based on the patient's presentation and physical exam, he is likely experiencing acute on chronic right flank pain. Due to his history of AML and is concerned that she is having worsening pain, presents emergency department for evaluation. He is concerned that he may have a tumor mass. Endorses no acute complaints at this time. I did discuss with the patient length that due to his no recent CT imaging, as well as his history of abdominal surgeries I would like to obtain a CT and pelvis in addition to basic laboratory studies. He was in agreement this plan. Patient's lavatory studies were unremarkable including a negative urinalysis. Patient's CT abdomen and pelvis revealed no acute intra-abdominal process. On reevaluation, patient's pain is improved. He did receive Toradol as well as lidocaine patch will he is here in the department. I do believe it is safer to be discharged home at this time. He was in agreement this plan. He'll follow- up with his PCP in 2 days. I will provide the patient with a prescription for lidocaine patch. I instructed the patient to follow up with their PCP in the next 3 days. . I explained that the patient should return to the emergency department if they experience any worsening symptoms. Strict return precautions were discussed with the patient. The patient expressed understanding of these instructions. I answered all questions that the patient had. The patient was discharged home in good condition with their prescriptions and follow up information. - Lab Data Result diagrams: 05/21/21 14:39 05/21/21 14:39 Lab Results 05/21/21 05/21/21 05/21/21 Range/Units 14:39 14:39 14:39 WBC 6.6 (3.8-10.6) k/uL RBC 4.99 (4.30-5.90) m/uL Hgb 15.6 (13.0-17.5) gm/dL Hct 44.5 (39.0-53.0) % MCV 89.1 (80.0-100.0) fL MCH 31.2 (25.0-35.0) pg MCHC 35.0 (31.0-37.0) g/dL RDW 14.4 (11.5-15.5) % Plt Count 232 (150-450) k/uL MPV 7.2 Neutrophils % 55 % Lymphocytes % 35 % Monocytes % 6 % Eosinophils % 2 % Basophils % 1 % Neutrophils # 3.6 (1.3-7.7) k/uL Lymphocytes # 2.3 (1.0-4.8) k/uL Monocytes # 0.4 (0-1.0) k/uL Eosinophils # 0.1 (0-0.7) k/uL Basophils # 0.1 (0-0.2) k/uL Poikilocytosis Slight PT 9.8 (9.0-12.0) sec INR 0.9 (<1.2) APTT 23.5 (22.0-30.0) sec Sodium (137-145) mmol/L Potassium (3.5-5.1) mmol/L Chloride (98-107) mmol/L Carbon Dioxide (22-30) mmol/L Anion Gap mmol/L BUN (9-20) mg/dL Creatinine (0.66-1.25) mg/dL Est GFR (CKD-EPI)AfAm (>60 ml/min/1.73 sqM) Est GFR (CKD-EPI)NonAf (>60 ml/min/1.73 sqM) Glucose (74-99) mg/dL Calcium (8.4-10.2) mg/dL Total Bilirubin (0.2-1.3) mg/dL AST (17-59) U/L ALT (4-49) U/L Alkaline Phosphatase (38-126) U/L Total Protein (6.3-8.2) g/dL Albumin (3.5-5.0) g/dL Amylase (30-110) U/L Lipase (23-300) U/L Urine Color Light Yellow Urine Appearance Clear (Clear) Urine pH 7.5 (5.0-8.0) Ur Specific [place] >1.050 H (1.001-1.035) Urine Protein Negative (Negative) Urine Glucose (UA) Negative (Negative) Urine Ketones Negative (Negative) Urine Blood Negative (Negative) Urine Nitrite Negative (Negative) Urine Bilirubin Negative (Negative) Urine Urobilinogen <2.0 (<2.0) mg/dL Ur Leukocyte Esterase Negative (Negative) 05/21/21 Range/Units 14:39 WBC (3.8-10.6) k/uL RBC (4.30-5.90) m/uL Hgb (13.0-17.5) gm/dL Hct (39.0-53.0) % MCV (80.0-100.0) fL MCH (25.0-35.0) pg MCHC (31.0-37.0) g/dL RDW (11.5-15.5) % Plt Count (150-450) k/uL MPV Neutrophils % % Lymphocytes % % Monocytes % % Eosinophils % % Basophils % % Neutrophils # (1.3-7.7) k/uL Lymphocytes # (1.0-4.8) k/uL Monocytes # (0-1.0) k/uL Eosinophils # (0-0.7) k/uL Basophils # (0-0.2) k/uL Poikilocytosis PT (9.0-12.0) sec INR (<1.2) APTT (22.0-30.0) sec Sodium 137 (137-145) mmol/L Potassium 3.9 (3.5-5.1) mmol/L Chloride 103 (98-107) mmol/L Carbon Dioxide 25 (22-30) mmol/L Anion Gap 9 mmol/L BUN 12 (9-20) mg/dL Creatinine 0.85 (0.66-1.25) mg/dL Est GFR (CKD-EPI)AfAm >90 (>60 ml/min/1.73 sqM) Est GFR (CKD-EPI)NonAf >90 (>60 ml/min/1.73 sqM) Glucose 91 (74-99) mg/dL Calcium 9.6 (8.4-10.2) mg/dL Total Bilirubin 0.6 (0.2-1.3) mg/dL AST 29 (17-59) U/L ALT 42 (4-49) U/L Alkaline Phosphatase 87 (38-126) U/L Total Protein 7.0 (6.3-8.2) g/dL Albumin 4.6 (3.5-5.0) g/dL Amylase 57 (30-110) U/L Lipase 143 (23-300) U/L Urine Color Urine Appearance (Clear) Urine pH (5.0-8.0) Ur Specific [place] (1.001-1.035) Urine Protein (Negative) Urine Glucose (UA) (Negative) Urine Ketones (Negative) Urine Blood (Negative) Urine Nitrite (Negative) Urine Bilirubin (Negative) Urine Urobilinogen (<2.0) mg/dL Ur Leukocyte Esterase (Negative) Disposition Clinical Impression: Chronic abdominal pain Disposition: HOME SELF-CARE Condition: Good Instructions (If sedation given, give patient instructions): Abdominal Pain (ED) Prescriptions: Lidocaine 5% Patch [Lidoderm 5% Patch] 1 patch TOPICAL DAILY PRN 7 Days #7 patch PRN Reason: Pain Is patient prescribed a controlled substance at d/c from ED?: No Referrals: Vivien Rg MD [Primary Care Provider] - 1-2 days
[2021-05-21 16:57] VITALS: BP 141/99; PULSE 65; TEMP 98
== END 2021-05-21 16:57 | disposition home or self-care (01) ==
LOC: EC 12:56
DX: R10.9 Unspecified abdominal pain (principal); G89.29 Other chronic pain; J44.9 Chronic obstructive pulmonary disease, unspecified; I25.2 Old myocardial infarction; R11.0 Nausea; K21.9 Gastro-esophageal reflux disease without esophagitis; I10 Essential (primary) hypertension; H91.90 Unspecified hearing loss, unspecified ear; Z88.0 Allergy status to penicillin; Z90.49 Acquired absence of other specified parts of digestive tract; Z88.1 Allergy status to other antibiotic agents; Z79.899 Other long term (current) drug therapy; Z87.891 Personal history of nicotine dependence; Z88.5 Allergy status to narcotic agent; Z88.8 Allergy status to other drugs, medicaments and biological substances; Z91.018 Allergy to other foods; Z91.048 Other nonmedicinal substance allergy status
CPT/HCPCS: 36415; 80053; 82150; 83690; 85025; 85610; 85730; 81003; 74177; 99284; 96374; J1885; Q9967

== ENCOUNTER 2021-08-04 10:59 | Emergency (ER) | payer OTHER ==
[2021-08-04 11:08] VITALS: RESP 18; TEMP 97.7
[2021-08-04] MEDS ORDERED: HYDROmorphone 1 MG/ML 1 ML SYRINGE IVP STA (11:11)
--- NOTE | 2021-08-04 11:18 | ED ---
Lower Extremity Injury HPI - General Stated Complaint: Fall Time Seen by Provider: 08/04/21 11:00 Source: patient, EMS, RN notes reviewed Mode of arrival: EMS Limitations: no limitations - History of Present Illness Initial Comments: 35-year-old male presents emergency Department chief complaint left ankle injury. Patient states that he had his cat running to her legs he went to step over missed last 2 steps rolling his left ankle. Patient did receive fentanyl by EMS. Patient states he has severe pain left lateral ankle no upper leg pain denies any foot pain. - Related Data Home Medications Medication Instructions Recorded Confirmed Omeprazole [PriLOSEC] 20 mg PO HS 09/18/14 05/21/21 lisinopriL [Zestril] 10 mg PO DAILY 04/12/15 05/21/21 Gabapentin [Neurontin] 1,200 mg PO HS 08/27/15 05/21/21 amLODIPine [Norvasc] 10 mg PO DAILY 08/27/15 05/21/21 Midodrine HCl 5 mg PO HS 09/04/19 05/21/21 Gabapentin [Neurontin] 600 mg PO DAILY 02/09/20 05/21/21 ALPRAZolam [Xanax] 0.5 mg PO HS 05/21/21 05/21/21 Loratadine-Pseudoeph 10-240 mg 1 tab PO DAILY 05/21/21 05/21/21 [Claritin-D 24 Hour] Previous Rx's Medication Instructions Recorded Lidocaine 5% Patch [Lidoderm 5% 1 patch TOPICAL DAILY PRN 7 Days 05/21/21 Patch] #7 patch Allergies Allergy/AdvReac Type Severity Reaction Status Date / Time Penicillins Allergy Severe Rash/Hives, Verified 05/21/21 14:31 Nausea morphine Allergy Anaphylaxis Verified 05/21/21 14:31 moxifloxacin HCl AdvReac Intermediate Nausea Verified 05/21/21 14:31 [From Avelox] cephalexin monohydrate AdvReac c-diff Verified 05/21/21 14:31 [From Keflex] MOLD AdvReac Severe Dyspnea, Uncoded 05/21/21 13:28 Watery Eyes, Runny Nose mushroom AdvReac Dyspnea Uncoded 05/21/21 13:28 Review of Systems ROS Statement: Those systems with pertinent positive or pertinent negative responses have been documented in the HPI. ROS Other: All systems not noted in ROS Statement are negative. 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 short term memory loss, chronic lower back pain, admission in 2018 w/chest pain that was dx. as pleurisy,small cell/small fiber neuropathy Last Myocardial Infarction Date:: 2009 History of Any Multi-Drug Resistant Organisms: C-DIFF Date of last positivie culture/infection: 02/20/2013 MDRO Source:: stool Past Surgical History: Appendectomy, Back Surgery, Cholecystectomy, Heart Catheterization, Orthopedic Surgery Additional Past Surgical History / Comment(s): PICC line/removed, bone marrow biopsy X 5, sinus surgery x 2, pilonidal cyst, rt shoulder rotator cuff, burak foot surgery, port right upper chest/later removed, Rt knee arthroscopy x 2, rt knee meniscus repair, back sx-"had nerves burned", robotic laparoscopic lysis of adhesions in January 2020 Past Anesthesia/Blood Transfusion Reactions: No Reported Reaction Additional Past Anesthesia/Blood Transfusion Reaction / Comment(s): claustrophobia Past Psychological History: Anxiety Smoking Status: Former smoker Past Alcohol Use History: None Reported Past Drug Use History: None Reported - Past Family History Mother Family Medical History: Cancer Father History Unknown: Yes Family Medical History: Coronary Artery Disease (CAD), Diabetes Mellitus General Exam Limitations: no limitations General appearance: alert, in no apparent distress Head exam: Present: atraumatic, normocephalic, normal inspection Neck exam: Present: full ROM Respiratory exam: Present: normal lung sounds bilaterally. Absent: respiratory distress, wheezes, rales, rhonchi, stridor Cardiovascular Exam: Present: regular rate, normal rhythm, normal heart sounds. Absent: systolic murmur, diastolic murmur, rubs, gallop, clicks Extremities exam: Present: other (Left ankle lateral malleoli region there is tenderness of palpation, swelling noted, neurovascular intact left leg, no proximal tib-fib tenderness no distal foot tenderness) Course Vital Signs 08/04/21 08/04/21 11:05 12:08 Temperature 97.7 F Pulse Rate 79 81 Respiratory 18 18 Rate Blood Pressure 133/92 121/68 O2 Sat by Pulse 98 98 Oximetry Medical Decision Making - Medical Decision Making X-ray is negative for acute fracture. Patient was placed in stirrup air splint, will follow-up with orthopedics if no improvement return parameters discussed. Disposition Clinical Impression: Fall, Left ankle sprain Disposition: HOME SELF-CARE Condition: Stable Instructions (If sedation given, give patient instructions): Ankle Sprain (ED) Additional Instructions: Please return to the Emergency Department if symptoms worsen or any other concerns. Is patient prescribed a controlled substance at d/c from ED?: No Referrals: Vivien Rg MD [Primary Care Provider] - 1-[address] Alvarez MD [Medical Doctor] - 1-2 days Time of Disposition: 12:28
[2021-08-04] MEDS ORDERED: ACET/COD 300 MG/30 MG STARTER PACK 6 TAB BTL PO STA (12:31)
[2021-08-04 14:08] VITALS: BP 124/84; PULSE 69
--- NOTE | 2021-08-04 15:27 | XR ---
Left ankle. HISTORY: Pain following trauma. COMPARISON: None. TECHNIQUE: 3 views left ankle were obtained. There is no fracture is noted. There is mild soft tissue lateral malleolus. IMPRESSION: Mild soft tissue swelling over the lateral malleolus with no other significant abnormality.
== END 2021-08-04 13:05 | disposition home or self-care (01) ==
LOC: EC 10:59
DX: S93.402A Sprain of unspecified ligament of left ankle, initial encounter (principal); E78.5 Hyperlipidemia, unspecified; I10 Essential (primary) hypertension; I25.2 Old myocardial infarction; J44.9 Chronic obstructive pulmonary disease, unspecified; K21.9 Gastro-esophageal reflux disease without esophagitis; Z79.899 Other long term (current) drug therapy; Z87.891 Personal history of nicotine dependence; Z88.0 Allergy status to penicillin; Z88.1 Allergy status to other antibiotic agents; Z88.5 Allergy status to narcotic agent; Z91.018 Allergy to other foods; Z91.09 Other allergy status, other than to drugs and biological substances; X50.9XXA Other and unspecified overexertion or strenuous movements or postures, initial encounter; Y93.02 Activity, running
CPT/HCPCS: 73610; 99284; 29515; 96374; L4350; J1170

== ENCOUNTER → 2021-09-13 | Outpatient (CLI) | payer OTHER ==
[2021-09-13 08:37] VITALS: BP 151/104; PULSE 86; RESP 18; TEMP 97.9
--- NOTE | 2021-09-13 08:53 | P.PAINCN ---
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, and still the pain increases with activity it's constant and aggravated with movement, as any motor or sensory deficit to denies any fever or night sweats, denies any change in the bowel movement or urination, also patient complaining of severe mid back pain with radiation to the right side of the abdomen, it's constant dull aching pain, he denies any skin rash he denies any change in the bowel movement ., Patient tried physical therapy , chiropractics without any long-term benefit and patient currently on pain medication tolerance 3 Aleve and Neurontin, Zanaflex and he continued to have pain Past Medical History Past Medical History: Cancer, Chest Pain / Angina, COPD, GERD/Reflux, Hearing Disorder / Deafness, Hyperlipidemia, Hypertension, Memory Impairment, Myocardial Infarction (MS), Musculoskeletal Disorder, Neurologic Disorder, Osteoarthritis (OA), Pneumonia, Respiratory Disorder, Syncope Additional Past Medical History / Comment(s): migraines, heart murmur from - prolapsed mitral valve, pain in rt hip and down leg, lower legs and and ankles sensitive to touch, neuropathy rt left and foot, 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 short term memory loss, chronic lower back pain, admission in 2018 w/chest pain that was dx. as pleurisy,small cell/small fiber neuropathy,fx left ankle 08/04/21 wearing boot, lumbar issues Last Myocardial Infarction Date:: 2009 History of Any Multi-Drug Resistant Organisms: C-DIFF Year Discovered:: 02/20/2013 MDRO Source:: stool Past Surgical History: Appendectomy, Back Surgery, Cholecystectomy, Heart Catheterization, Orthopedic Surgery Additional Past Surgical History / Comment(s): PICC line/removed, bone marrow biopsy X 5, sinus surgery x 2, pilonidal cyst, rt shoulder rotator cuff, burak foot surgery, port right upper chest/later removed, Rt knee arthroscopy x 2, rt knee meniscus repair, back sx-"had nerves burned", robotic laparoscopic lysis of adhesions in January 2020 Past Anesthesia/Blood Transfusion Reactions: No Reported Reaction Additional Past Anesthesia/Blood Transfusion Reaction / Comm: claustrophobia Past Psychological History: Anxiety Additional Psychological History / Comment(s): 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 Smoking Status: Former smoker Past Alcohol Use History: None Reported Additional Past Alcohol Use History / Comment(s): started smoking at age 17(1981) worked up to 1.5 ppd and quit 1992 Past Drug Use History: None Reported - Past Family History Mother Family Medical History: Cancer Father History Unknown: Yes Family Medical History: Coronary Artery Disease (CAD), Diabetes Mellitus Medications and Allergies Home Medications Medication Instructions Recorded Confirmed Type Omeprazole [PriLOSEC] 20 mg PO DAILY 09/18/14 09/12/21 History lisinopriL [Zestril] 10 mg PO DAILY 04/12/15 09/12/21 History Gabapentin [Neurontin] 1,200 mg PO HS 08/27/15 09/12/21 History amLODIPine [Norvasc] 10 mg PO DAILY 08/27/15 09/12/21 History Midodrine HCl 5 mg PO HS 09/04/19 09/12/21 History Gabapentin [Neurontin] 600 mg PO DAILY 02/09/20 09/12/21 History ALPRAZolam [Xanax] 0.5 mg PO HS 05/21/21 09/12/21 History Loratadine-Pseudoeph 10-240 mg 1 tab PO DAILY 05/21/21 09/12/21 History [Claritin-D 24 Hour] Acetaminophen-Codeine 300-30mg 1 tab PO Q4H PRN #12 tablet 08/04/21 09/12/21 Rx [Tylenol #3] Gabapentin 300 mg PO DAILY PRN 08/04/21 09/12/21 History tiZANidine HCL [Zanaflex] 4 mg PO TID PRN 08/04/21 09/12/21 History Ibuprofen [Motrin] 800 mg PO DAILY PRN 09/12/21 09/12/21 History Allergies Allergy/AdvReac Type Severity Reaction Status Date / Time Penicillins Allergy Severe Rash/Hives, Verified 12/22/21 09:59 Nausea morphine Allergy Anaphylaxis Verified 09/12/21 09:59 moxifloxacin HCl AdvReac Intermediate Nausea Verified 09/12/21 09:59 [From Avelox] cephalexin monohydrate AdvReac c-diff Verified 09/12/21 09:59 [From Keflex] MOLD AdvReac Severe Dyspnea, Uncoded 09/12/21 09:59 Watery Eyes, Runny Nose mushroom AdvReac Dyspnea Uncoded 09/12/21 09:59 Physical Exam Vitals: Vital Signs Temp Pulse Resp BP Pulse Ox 09/13/21 08:21 97.9 F 86 18 151/104 98 Physical Examinations : -Constitutiona : Cooperative , not in acute distress . -HEENT : nech : supple , no Lymphadenopathy , normal thyroid size . : eyes : no ptosis , no icterus, no photophobia . - neurologic : Cranial nerve II to XII intact , no focal neurological deffecit . -psychatric : alert , oriented X 3 , appropriate affect , intact judgment and insight . -Lymphatic : no Lymphadenopathy . - musculoskeltal : Cervical Spine motor stregnth in the deltoid and biceps, normal right side , normal Left side motor stregnth biceps and the wrist extensors normal right side ,normal left side . motor stregnth in the triceps muscle . normal Right side , normal Left side deep tendon reflexes normal at the biceps , normal at Brachioradialis , normal at triceps. Thoracic spine= Tenderness in the right thoracic paraspinal muscles from T8 to T12 Deney at the dermatomal distribution of right T8 to T10 Lumber spine moter stegnth lower extremities ,thigh and legs 5/5 Right side , 5/5 Left side deep tendon reflexes : normal Knee Jerk , normal ankle Jerk lumber facet Loading Test = negative bilaterally Range of motion of the lumbar spine Flexion 30 degrees, extension 10 degrees strait leg raising test = negative bilaterally Fabere test= negative bilaterally. tenderness over the Sacroiliac joint on the Right , and Left sides Results Comments: MRI of the lumbar spine multilevel bulging disc disease at L2-3 and L3 4 L4 5 and L5-S1 and multilevel lumbar foraminal stenosis at L4-L5 and at L5-S1 and multilevel lumbar facet arthropathy Assessment and Plan Plan: Assessment and plan=1-lumbar radiculopathy at L4 5 and L5-S1 dermatomal distribution 2-lumbar spondylosis with lumbar facet arthropathy. 3-lumbar foraminal stenosis. 4-Lumbar degenerative disc disease. 7-[id number] intercostal neuralgia. Patient will be good candidate to have right- sided lumbar transforaminal epidural steroid injection at L4 5 ,and L5-S1. in the future we can do Right intercostal nerve block to Treate right-sided chest wall pain and right-sided abdominal pain Time with Patient: Greater than 30 PQRS Measure Charge Sheet Measure #130: Documentation of Current Meds in Medical Chart: Patient's medications documented in chart Measure #226: Tobacco Use: Screen & Cessation Intervention: Pt not a tobacco user Measure #111: Pneumonia Vaccination: Pneumococcal vaccine NOT administered or previously given Measure #47: Advance Care Plan: Advance care planning discussed & documented, pt chose/unable to give Measure #412: Opioid Treatment Agreement: No documentation of signed opioid treatment agreement Measure #408: Opioid Therapy Follow-up Evaluation: Patient had NO f/u eval minimum every 3 months during opioid therapy Measure #317: Preventitive Care & Scrn High Bld Press & F/U: Pre-hypertensive or hypertensive BP documented, pt will f/u with PCP Measure #128: Body Mass Index (BMI) Screening & Follow-up: BMI documented ABOVE normal parameters - f/u documented Measure #131: Pain Assessment & Follow-up: Pain positive & plan documented, Follow-up scheduled Measure #431: Unhealthy Alcohol Use Preventative Care & Scrn: Patient not identified as an unhealthy alcohol user Mode of Arrival: Ambulatory - Pain Location Lower Back Non-Pharmacological Interventions: Chiropractic Treatment, Heat, Inactivity, Physical Therapy, Position/Reposition Pharmacological Interventions: PRN Medication PQRS Narrative: Smoking Status Former smoker Blood Pressure 151/104 Pain Intensity [Lower Back] 7 Scale Used Numeric (1 - 10) Hx Alcohol Use (MH) Yes: rare Home Medications: Ambulatory Orders Omeprazole [PriLOSEC] 20 mg PO DAILY 09/18/14 lisinopriL [Zestril] 10 mg PO DAILY 04/12/15 Gabapentin [Neurontin] 1,200 mg PO HS 08/27/15 amLODIPine [Norvasc] 10 mg PO DAILY 08/27/15 Midodrine HCl 5 mg PO HS 09/04/19 Gabapentin [Neurontin] 600 mg PO DAILY 02/09/20 ALPRAZolam [Xanax] 0.5 mg PO HS 05/21/21 Loratadine-Pseudoeph 10-240 mg [Claritin-D 24 Hour] 1 tab PO DAILY 05/21/21 Acetaminophen-Codeine 300-30mg [Tylenol #3] 1 tab PO Q4H PRN #12 tablet 08/04/21 Gabapentin 300 mg PO DAILY PRN 08/04/21 tiZANidine HCL [Zanaflex] 4 mg PO TID PRN 08/04/21 Ibuprofen [Motrin] 800 mg PO DAILY PRN 09/12/21
== END | disposition home or self-care (01) ==
LOC: PNWHC3 07:55
PROVIDERS: ATTEND Specialist
DX: M47.896 Other spondylosis, lumbar region (principal); M54.17 Radiculopathy, lumbosacral region; M51.36 Other intervertebral disc degeneration, lumbar region; M48.061 Spinal stenosis, lumbar region without neurogenic claudication
CPT/HCPCS: 99211

== ENCOUNTER 2021-10-09 07:57 | Day surgery (SDC) | payer OTHER ==
[2021-10-02 18:03] VITALS: BMI 32.3
[2021-10-09 08:12] VITALS: TEMP 97.4
[2021-10-09] MEDS ORDERED: LACTATED RINGERS 1,000 ML IV ONE (08:19)
[2021-10-09] MEDS ORDERED: fentaNYL (PF) 50 MCG/ML 2 ML AMP ONE (08:47)
[2021-10-09] MEDS ORDERED: IOPAMIDOL M200 10 ML VIAL ONE (08:47)
[2021-10-09] MEDS ORDERED: MIDAZOLAM 2 MG/2 ML VIAL ONE (08:47)
[2021-10-09] MEDS ORDERED: DEXAMETHASONE SOD PHOSPHATE 10 MG/ML 1 ML VIAL ONE (08:47)
--- NOTE | 2021-10-09 09:02 | P.PCN ---
Date of Procedure: 10/09/21 Description of Procedure: PREOPERATIVE DIAGNOSIS: Lumbar radiculopathy POSTOPERATIVE DIAGNOSIS: Lumbar radiculopathy PROCEDURE 1. Transforaminal epidural steroid injection under fluoroscopic guidance Right L4/5 & L5/1 2. Lumbar epidurogram IMAGING Fluoroscopy was used, images where saved to the medical record ANESTHESIA: Local with 1% lidocaine 5 ml ; 2mg versed and 100mcg of fentanyl PROCEDURE DESCRIPTION / TECHNIQUE: The patient was seen and identified in the preoperative area. Risks, benefits, complications, and alternatives were discussed with the patient. The patient agreed to proceed with the procedure and signed the consent, vital signs were stable prior to the procedure. Patient was taken to the OR and time out was completed. The patient was placed in the prone position on procedure table and a pillow was placed under the abdomen to reduce lumbar lordosis. The lumbosacral area was prepped and draped in the usual sterile fashion. Vital signs were closely monitored during the procedure. Conscious sedation was used. Using oblique fluoroscopy, the chin of the "Adria dog" at the pedicle and the skin and deeper tissues just below was localized with 1% lidocaine. Subsequently, a 22-gauge 3.5-inch spinal needle was advanced under a tunneled view fluoroscopic guidance just underneath the chin of the "Adria dog". Under lateral fluoroscopy, the needle was then advanced to the posterior border interforaminal space. After negative aspiration of CSF and blood and with no paresthesias, 1 mL of Omnipaque-240 contrast dye was injected excellent epidurogram. Subsequently, a solution totalling 2ml of dexamethasone and PFNS was injected after negative aspiration (total of 10mg of dexamethasone was used). The needle was removed intact. COMPLICATIONS: None DISPOSITION: The patient was placed in a supine position and transferred to the recovery area in a stable condition for observation. There was no evidence of lower extremity motor or sensory deficit after the procedure. Patient was discharged from the recovery room after meeting discharge criteria. Home discharge instructions were given to the patient by the staff. The patient was reexamined prior to discharge. Follow up as directed.
[2021-10-09] MEDS ORDERED: IV FLUID CONTINUATION 1,000 ML IV ONE (09:11)
--- NOTE | 2021-10-09 09:22 | FL ---
EXAMINATION TYPE: FL guided pain mgmt statistic DATE OF EXAM: 10/09/2021 HISTORY: Fluoroscopy time 40 seconds of fluoroscopy provided. IMPRESSION: 1. Fluoroscopy time.
[2021-10-09 09:39] VITALS: BP 124/83; PULSE 88; RESP 20
== END 2021-10-09 09:55 | disposition home or self-care (01) ==
LOC: ORPAIN 07:57
PROVIDERS: ATTEND Hospitalist
DX: M54.16 Radiculopathy, lumbar region (principal)
CPT/HCPCS: 64483; J2250; J1100; J3010; Q9966; 99152

== ENCOUNTER → 2021-11-26 | Outpatient (CLI) | payer OTHER ==
--- NOTE | 2021-11-26 14:49 | XR ---
EXAMINATION TYPE: XR chest 2V DATE OF EXAM: 11/26/2021 COMPARISON: NONE TECHNIQUE: PA and lateral views submitted. HISTORY: Pain FINDINGS: The lungs are clear and there is no pneumothorax, pleural effusion, or focal pneumonia. Heart size normal. No overt failure. Degenerative changes of the spine. IMPRESSION: 1. No acute process.
[2021-11-26 14:50] LABS: Appearance,Urine Clear (Clear); Bilirubin,Urine Negative (Negative); Blood,Urine Negative (Negative); Color,Urine Yellow; Glucose,Urine (UA) Negative (Negative); Ketones,Urine Negative (Negative); Leukocyte Esterase,Urine Negative (Negative); Nitrite,Urine Negative (Negative); Protein,Urine Negative (Negative); Specific Gravity,Urine 1.017 (1.001-1.035); Urobilinogen,Urine <2.0 mg/dL (<2.0)
[2021-11-26 14:54] LABS: INR 0.9 (<1.2); Partial Thromboplastin Time 23.6 sec (22.0-30.0); Prothrombin Time 10.1 sec (9.0-12.0)
[2021-11-26 18:26] LABS: Basophils # (A) 0.08 X 10*3/uL (0.00-0.10); Basophils % (A) 0.9 %; Eosinophils % (A) 1.1 %; HCT 42.2 % (39.6-50.0); Immature Grans, Automated 0.8 %; Lymphocytes # (A) 2.74 X 10*3/uL (0.90-5.00); MCH 30.2 pg (27.0-32.0); MCHC 35.5 g/dL (32.0-37.0); MCV 84.9 fL (80.0-97.0); Mean Platelet Volume 9.8 fL (9.5-12.2); Monocytes # (A) 0.62 X 10*3/uL (0.20-1.00); NRBC Per 100 WBC 0 /100 WBCS (0.0-0.0); Neutrophils # (A) 5.23 X 10*3/uL (1.80-7.70); Neutrophils % (A) 59.2 %; Platelet Count 247 X 10*3/uL (140-440); RBC 4.97 X 10*6/uL (4.40-5.60); RDW 12.9 % (11.5-14.5); WBC 8.84 X 10*3/uL (4.50-10.00)
[2021-11-26 18:44] LABS: African American GFR (CKD) 103.4 (60.0-200.0); Albumin 4.2 g/dL (3.8-4.9); Albumin/Globulin Ratio 1.98 (1.60-3.17); Anion Gap 12.1 mmol/L (10.00-18.00); BUN/Creat Ratio 11.56 Ratio (12.00-20.00); Blood Urea Nitrogen 11.1 mg/dL (9.0-27.0); Calcium 9.3 mg/dL (8.7-10.3); Carbon Dioxide 23.1 mmol/L (20.0-27.5); Globulin 2.1 g/dL (1.6-3.3); Non-African American GFR(CKD) 89.3 (60.0-200.0); Potassium 3.6 mmol/L (3.5-5.5); Prealbumin 25.6 mg/dL (18.0-42.0); Total Bilirubin 0.5 mg/dL (0.30-1.20); Total Protein 6.3 g/dL (6.2-8.2)
== END | disposition home or self-care (01) ==
LOC: LABWHC1 13:56
DX: Z01.818 Encounter for other preprocedural examination (principal); R92.8 Other abnormal and inconclusive findings on diagnostic imaging of breast; R73.9 Hyperglycemia, unspecified; M54.16 Radiculopathy, lumbar region
CPT/HCPCS: 36415; 71046; 80053; 81003; 83036; 84134; 84443; 85025; 85610; 85730; 87070

== ENCOUNTER → 2022-04-12 | Outpatient (CLI) | payer OTHER ==
--- NOTE | 2022-04-12 14:33 | CT ---
EXAMINATION TYPE: CT abdomen pelvis w con DATE OF EXAM: 04/12/2022 COMPARISON: 05/21/2021 HISTORY: abdominal pain CT DLP: 1572.9 mGycm Automated exposure control for dose reduction was used. TECHNIQUE: Helical acquisition of images was performed from the lung bases through the pelvis. CONTRAST: Performed with Oral Contrast and with IV Contrast, patient injected with 70cc mL of Isovue 300. FINDINGS: Lung bases are clear. There is surgical absence of the gallbladder. There is no focal mass or organomegaly involving the liver, pancreas, spleen or adrenal glands. The kidneys excrete contrast promptly and symmetrically is no solid renal mass or hydronephrosis. The re is no retroperitoneal adenopathy or hemorrhage in the caliber of the abdominal aorta is normal. The bowel loops are normal in caliber and there is no evidence of bowel obstruction or bowel wall inf lammation. There is no free intraperitoneal air or fluid. No inflammatory changes are identified with in the mesentery. There is no pelvic mass, free fluid, abscess or adenopathy. The osseous structures are intact. IMPRESSION: No significant abnormality seen. No interval change.
== END | disposition home or self-care (01) ==
LOC: RADCTMAIN 12:16
PROVIDERS: ATTEND Family Medicine
DX: R10.9 Unspecified abdominal pain (principal)
CPT/HCPCS: 74177; Q9967

== ENCOUNTER 2022-06-19 10:01 | Day surgery (SDC) | payer OTHER ==
--- NOTE | 2022-06-19 08:50 | P.GSHP ---
History of Present Illness H&P Date: 06/19/22 CHIEF COMPLAINT: Colon screen HISTORY OF PRESENT ILLNESS: The patient is a 56-year-old male who presents for colon screen. Lower endoscopy was offered for further evaluation and management. PAST MEDICAL HISTORY: Please see list. PAST SURGICAL HISTORY: Please see list. MEDICATIONS: Please see list. ALLERGIES: Please see list. SOCIAL HISTORY: No illicit drug use FAMILY HISTORY: No reports of Crohn disease or ulcerative colitis. REVIEW OF ORGAN SYSTEMS: CONSTITUTIONAL: No reports of fevers or chills. PHYSICAL EXAM: VITAL SIGNS: Stable GENERAL: Well-developed pleasant in no acute distress. HEENT: No scleral icterus. Extraocular movements grossly intact. Moist buccal mucosa. NECK: Supple without lymphadenopathy. CHEST: Unlabored respirations. Equal bilateral excursions. CARDIOVASCULAR: Regular rate and rhythm. Distal 2+ pulses. ABDOMEN: Soft, nontender, nondistended. MUSCULOSKELETAL: No clubbing, cyanosis, or edema. ASSESSMENT: 1. Colon screen. PLAN: 1. 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 as pleurisy,small cell/small fiber neuropathy,fx left ankle 08/04/21, lumbar issues, 50% hearing loss left side. some tinnitis. DDD, Claustrophobia. more recent abdominal and back pain is reason for colonoscopy Last Myocardial Infarction Date:: 2009 History of Any Multi-Drug Resistant Organisms: C-DIFF Date of last positivie culture/infection: 02/20/2013 MDRO Source:: stool Past Surgical History: Appendectomy, Back Surgery, Cholecystectomy, Heart Catheterization, Hernia Repair, Orthopedic Surgery Additional Past Surgical History / Comment(s): PICC line/removed, bone marrow biopsy X 5, sinus surgery x 2, pilonidal cyst, rt shoulder rotator cuff, burak foot surgery, port right upper chest/later removed, Rt knee arthroscopy x 2, rt knee meniscus repair, back sx-"had nerves burned", robotic laparoscopic lysis of adhesions in January 2020. platelets transfusions. left knee arthroscopy, bilatera inguinal hernia repair Past Anesthesia/Blood Transfusion Reactions: No Reported Reaction Additional Past Anesthesia/Blood Transfusion Reaction / Comment(s): blood transfusions irradiated no problems Smoking Status: Former smoker - Past Family History Mother Family Medical History: Cancer Father History Unknown: Yes Family Medical History: Coronary Artery Disease (CAD) Additional Family Medical History / Comment(s): DM runs on his side of family Medications and Allergies Home Medications Medication Instructions Recorded Confirmed Type Omeprazole [PriLOSEC] 20 mg PO DAILY 09/18/14 06/17/22 History Gabapentin [Neurontin] 1,200 mg PO HS 08/27/15 06/17/22 History Midodrine HCl 5 mg PO HS 09/04/19 06/17/22 History Gabapentin [Neurontin] 600 mg PO DAILY 02/09/20 06/17/22 History ALPRAZolam [Xanax] 0.5 mg PO HS 05/21/21 06/17/22 History Loratadine-Pseudoeph 10-240 mg 1 tab PO DAILY 05/21/21 06/17/22 History [Claritin-D 24 Hour] Ibuprofen [Motrin] 800 mg PO DAILY PRN 09/12/21 06/17/22 History HYDROcodone/APAP 5-325MG [Onyx 1 tab PO BID PRN 06/17/22 06/17/22 History 5-325] amLODIPine BESYLATE/BENAZEPRIL 1 cap PO DAILY 06/17/22 06/17/22 History [Lotrel 10-20 mg Capsule] Allergies Allergy/AdvReac Type Severity Reaction Status Date / Time Penicillins Allergy Severe Rash/Hives, Verified 06/17/22 11:14 Nausea morphine Allergy Anaphylaxis Verified 06/17/22 11:14 moxifloxacin HCl AdvReac Intermediate Nausea Verified 06/17/22 11:14 [From Avelox] cephalexin monohydrate AdvReac c-diff Verified 06/17/22 11:14 [From Keflex] MOLD AdvReac Severe Dyspnea, Uncoded 06/17/22 11:14 Watery Eyes, Runny Nose mushroom AdvReac Dyspnea Uncoded 06/17/22 11:14
[~2022-06-19 10:01] MED LIST changes: -DEXAMETHASONE SOD PHOSPHATE 10 MG/ML 1 ML VIAL IV ONE; +LIDOCAINE 1% (10MG/ML) FOR IV START INTRADERMA PRN; -ONDANSETRON 4 MG/2 ML VIAL IVP ONE
[2022-06-19 10:30] VITALS: RESP 16; TEMP 97.8
[2022-06-19] MEDS ORDERED: fentaNYL (PF) 50 MCG/ML 50 ML VIAL ONE (10:40)
[2022-06-19] MEDS ORDERED: LIDOCAINE 2% INJ 20 MG/ML (2 ML VIAL) ONE (10:40)
[2022-06-19] MEDS ORDERED: PROPOFOL 10 MG/ML 20 ML VIAL IV ONE (10:40)
[2022-06-19 11:18] VITALS: BP 140/100; PULSE 98
--- NOTE | 2022-06-19 11:27 | P.PCN ---
Date of Procedure: 06/19/22 Description of Procedure: PREOPERATIVE DIAGNOSIS: Personal history of colon polyps POSTOPERATIVE DIAGNOSIS: Personal history of colon polyps Tubular adenoma ascending colon Sigmoid diverticulosis Internal hemorrhoids, grade 2 OPERATION: Colonoscopy to the ileocecal valve and appendiceal orifice, cecum Colonoscopy with cold forceps biopsy SURGEON: Mary Hood MD. ANESTHESIA: MAC. INDICATIONS: The patient is an 56-year-old male who presents with personal history of colon polyps. Benefits and risks were described and informed consent was obtained. DESCRIPTION OF PROCEDURE: The patient had undergone Sutab prep. The patient had been brought into the operating room and laid in the left lateral decubitus position. After adequate intravenous sedation, the rectum was examined with 2% lidocaine jelly. The prostate was unremarkable. No external hemorrhoids were encountered. The rectal tone was within normal limits. No lesions were palpated in the rectal vault. An Olympus colonoscope was advanced until the cecum, ileocecal valve and appendiceal orifice were clearly viewed. The prep was fair. Sigmoid diverticulosis was encountered. Colonic polyps were found and removed. No evidence of focal colitis was found. Retroflexion of the scope demonstrated grade 2 internal hemorrhoids without active bleeding or inflammation. The colon was desufflated. The patient had tolerated the procedure well. Withdrawal time was over 6 minutes. FINDINGS: Aronchick preparation quality scale 3 (1-5) Internal hemorrhoids, grade 2 No external hemorrhoids No arteriovenous malformations. Sigmoid diverticulosis Removal of 1 polyp: - Cold forceps biopsy at mid transverse colon, 6 mm polyp, ascending colon No focal colitis. RECOMMENDATIONS: 1. Repeat colonoscopy in 3 years, 2024 Plan - Discharge Summary Discharge Rx Participant: No New Discharge Prescriptions: Continue Omeprazole [PriLOSEC] 20 mg PO DAILY Gabapentin [Neurontin] 1,200 mg PO HS Gabapentin [Neurontin] 600 mg PO DAILY ALPRAZolam [Xanax] 0.5 mg PO HS HYDROcodone/APAP 5-325MG [[place] 5-325] 1 tab PO BID PRN PRN Reason: Pain Loratadine-Pseudoeph 10-240 mg [Claritin-D 24 Hour] 1 tab PO DAILY Ibuprofen [Motrin] 800 mg PO DAILY PRN PRN Reason: Pain amLODIPine BESYLATE/BENAZEPRIL [Lotrel 10-20 mg Capsule] 1 cap PO DAILY Discharge Medication List Omeprazole [PriLOSEC] 20 mg PO DAILY 09/18/14 [History] Gabapentin [Neurontin] 1,200 mg PO HS 08/27/15 [History] Gabapentin [Neurontin] 600 mg PO DAILY 02/09/20 [History] ALPRAZolam [Xanax] 0.5 mg PO HS 05/21/21 [History] Loratadine-Pseudoeph 10-240 mg [Claritin-D 24 Hour] 1 tab PO DAILY 05/21/21 [History] Ibuprofen [Motrin] 800 mg PO DAILY PRN 09/12/21 [History] HYDROcodone/APAP 5-325MG [[place] 5-325] 1 tab PO BID PRN 06/17/22 [History] amLODIPine BESYLATE/BENAZEPRIL [Lotrel 10-20 mg Capsule] 1 cap PO DAILY 06/17/22 [History] Follow up Appointment(s)/Referral(s): Mary Hood MD [STAFF PHYSICIAN] - As Needed Patient Instructions/Handouts: Diverticulosis (DC), Colorectal Polyps (GEN), Diverticulosis Diet (GEN) Activity/Diet/Wound Care/Special Instructions: Repeat colonoscopy 3 years, 2024 Discharge Disposition: HOME SELF-CARE
== END 2022-06-19 11:46 | disposition home or self-care (01) ==
LOC: ORWHC2ENDO 10:01
PROVIDERS: ATTEND Surgery Plastic and Reconstructive Surgery
DX: Z12.11 Encounter for screening for malignant neoplasm of colon (principal); D12.2 Benign neoplasm of ascending colon; K57.30 Diverticulosis of large intestine without perforation or abscess without bleeding; J44.9 Chronic obstructive pulmonary disease, unspecified; I10 Essential (primary) hypertension; E78.5 Hyperlipidemia, unspecified; M19.90 Unspecified osteoarthritis, unspecified site; J18.9 Pneumonia, unspecified organism; Z95.5 Presence of coronary angioplasty implant and graft; Z87.891 Personal history of nicotine dependence; Z88.0 Allergy status to penicillin; Z88.5 Allergy status to narcotic agent; Z88.1 Allergy status to other antibiotic agents; Z91.048 Other nonmedicinal substance allergy status; K64.1 Second degree hemorrhoids
CPT/HCPCS: 88305; 45380; 45385; J3010; J2704; J2001

== ENCOUNTER → 2023-09-03 | Outpatient (CLI) | payer OTHER ==
--- NOTE | 2023-09-04 08:40 | CT ---
EXAMINATION TYPE: CT abdomen pelvis wo/w con DATE OF EXAM: 09/03/2023 COMPARISON: 04/12/2022 HISTORY: right sided abdominal pain, hx of leukemia CT DLP: 2661.4 mGycm Automated exposure control for dose reduction was used. CONTRAST: CT scan of the abdomen pelvis is performed without and with IV Contrast, patient injected with 100 mL of Isovue 300. FINDINGS- LUNG BASES- punctate 1 mm right lower lobe pulmonary nodule is too small to characterize but likely benign. LIVER/GB- findings compatible with hepatic steatosis. Postcholecystectomy changes noted. PANCREAS- No gross abnormality is seen. SPLEEN- No gross abnormality is seen. ADRENALS- subcentimeter nodularity of the adrenal gland too small to characterize. Most likely on th e basis of incidental adenoma and stable from prior exam. KIDNEYS/BLADDER-no hydronephrosis or nephrolithiasis. There are subcentimeter hypodensities within mitesh th kidneys too small to characterize. BOWEL- no evidence of obstruction. Retained debris: Correlation aeration in no significant changes o f diverticular disease. Small hiatal hernia. Question previous appendectomy. LYMPH NODES- No greater than 1cm abdominal or pelvic lymph nodes are appreciated. OSSEOUS STRUCTURES- degenerative and postsurgical changes of bilateral hip arthropathy. OTHER- aorta normal caliber. IMPRESSION- 1. Correlate for constipation. 2. Hepatic steatosis with post cholecystectomy changes. 3. Small hiatal hernia.
== END | disposition home or self-care (01) ==
LOC: RADCTMAIN 17:32
PROVIDERS: ATTEND Family Medicine
DX: R10.9 Unspecified abdominal pain (principal); K44.9 Diaphragmatic hernia without obstruction or gangrene; K76.0 Fatty (change of) liver, not elsewhere classified; Z90.49 Acquired absence of other specified parts of digestive tract; Z85.6 Personal history of leukemia
CPT/HCPCS: 74178; Q9967

== ENCOUNTER 2024-09-19 07:13 | Observation (INO) | payer OTHER ==
[2024-09-19] MEDS: NITROGLYCERIN OINT 1 INCH/GM PACKET TOPICAL SCH (08:02)
[2024-09-19] MEDS: SODIUM CHLORIDE 0.9% 1,000 ML IV STA (08:02)
[2024-09-19 08:04] LABS: Basophils # (A) 0.1 k/uL (0-0.2); Basophils % (A) 1 %; Eosinophils # (A) 0.1 k/uL (0-0.7); Eosinophils % (A) 2 %; HCT 41.1 % (39.0-53.0); HGB 14.2 gm/dL (13.0-17.5); Lymphocytes # (A) 1.6 k/uL (1.0-4.8); Lymphocytes % (A) 33 %; MCH 30.1 pg (25.0-35.0); MCHC 34.5 g/dL (31.0-37.0); MCV 87.2 fL (80.0-100.0); Mean Platelet Volume 7.1; Monocytes # (A) 0.2 k/uL (0-1.0); Monocytes % (A) 5 %; Neutrophils # (A) 2.7 k/uL (1.3-7.7); Neutrophils % (A) 58 %; Platelet Count 212 k/uL (150-450); RBC 4.71 m/uL (4.30-5.90); RDW 12.9 % (11.5-15.5); WBC 4.7 k/uL (3.8-10.6)
[2024-09-19 08:12] LABS: INR 0.9 (<1.2); Partial Thromboplastin Time 23.6 sec (22.0-30.0); Prothrombin Time 10.3 sec (10.0-12.5)
[2024-09-19 08:21] LABS: ALT 31 U/L (4-49); AST 20 U/L (17-59); African American GFR (CKD) >90 (>60 ml/min/1.73 sqM); Alkaline Phosphatase 95 U/L (38-126); Anion Gap 7 mmol/L; Blood Urea Nitrogen 11 mg/dL (9-20); Calcium 8.8 mg/dL (8.4-10.2); Carbon Dioxide 26 mmol/L (22-30); Chloride 107 mmol/L (98-107); Glucose 129 mg/dL (74-99); Magnesium 2.1 mg/dL (1.6-2.3); Non-African American GFR(CKD) >90 (>60 ml/min/1.73 sqM); Potassium 3.9 mmol/L (3.5-5.1); Sodium 140 mmol/L (137-145); Total Bilirubin 0.3 mg/dL (0.2-1.3); Total Protein 6.1 g/dL (6.3-8.2)
[2024-09-19 08:30] LABS: NT-Pro-B-Type Natriuretic Pept <20 pg/mL
--- NOTE | 2024-09-19 08:37 | ED ---
General Adult HPI - General Chief complaint: Chest Pain Stated complaint: chest pain Time Seen by Provider: 09/19/24 07:35 Source: patient, EMS, RN notes reviewed, old records reviewed Mode of arrival: EMS - History of Present Illness Initial comments: Patient is a 59-year-old male with past medical history remarkable for hypertension, angina, COPD, GERD, hypertension, hyperlipidemia, remote CA with no cardiac stents, and AML currently in remission, who presents emergency department complaining of onset of chest pain. This began at approximately 3 AM. Patient states the pain is over his left chest just to the left of the sternum. Radiates a little bit to his left shoulder. States it is a 9 out of 10 when it started. Called EMS earlier this morning and brought him here for further evaluation. Received 324 mg of aspirin as well as 3 nitros from EMS. States the pain is now a 0 to a 1 out of 10. The nitroglycerin tablets seem to help with the pain. States he has no stents but he did have the history of the CA in 2009. He states symptoms are relatively under control at this time. States that when he had the symptoms earlier, may have felt a little nauseous but that is not atypical for him. Denies diaphoresis. Presents for further evaluation at this time. - Related Data Home Medications Medication Instructions Recorded Confirmed Omeprazole [PriLOSEC] 20 mg PO DAILY 09/18/14 06/19/22 Gabapentin [Neurontin] 1,200 mg PO HS 08/27/15 06/19/22 Gabapentin [Neurontin] 600 mg PO DAILY 02/09/20 06/19/22 ALPRAZolam [Xanax] 0.5 mg PO HS 05/21/21 06/19/22 Loratadine-Pseudoeph 10-240 mg 1 tab PO DAILY 05/21/21 06/19/22 [Claritin-D 24 Hour] Ibuprofen [Motrin] 800 mg PO DAILY PRN 09/12/21 06/19/22 HYDROcodone/APAP 5-325MG [[place] 1 tab PO BID PRN 06/17/22 06/19/22 5-325] amLODIPine BESYLATE/BENAZEPRIL 1 cap PO DAILY 06/17/22 06/19/22 [Lotrel 10-20 mg Capsule] Allergies Allergy/AdvReac Type Severity Reaction Status Date / Time Penicillins Allergy Severe Rash/Hives, Verified 06/19/22 10:19 Nausea morphine Allergy Anaphylaxis Verified 06/19/22 10:19 moxifloxacin HCl AdvReac Intermediate Nausea Verified 06/19/22 10:19 [From Avelox] cephalexin monohydrate AdvReac c-diff Verified 06/19/22 10:19 [From Keflex] MOLD AdvReac Severe Dyspnea, Uncoded 06/19/22 10:19 Watery Eyes, Runny Nose mushroom AdvReac Dyspnea Uncoded 06/19/22 10:19 Review of Systems ROS Statement: Those systems with pertinent positive or pertinent negative responses have been documented in the HPI. Review of Systems: CONST: Denies fever EYES: Denies blurry vision ENT: Denies nasal congestion C/V: Denies significant current chest pain RESP: Denies shortness of breath GI: Denies abdominal pain : Denies dysuria SKIN: Denies rash. MSK: Denies joint pain. NEURO: Denies headache ROS Other: All systems not noted in ROS Statement are negative. 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 as pleurisy,small cell/small fiber neuropathy,fx left ankle 08/04/21, lumbar issues, 50% hearing loss left side. some tinnitis. DDD, Claustrophobia. more recent abdominal and back pain is reason for colonoscopy Last Myocardial Infarction Date:: 2009 History of Any Multi-Drug Resistant Organisms: C-DIFF Date of last positivie culture/infection: 02/20/2013 MDRO Source:: stool Past Surgical History: Appendectomy, Back Surgery, Cholecystectomy, Heart Catheterization, Hernia Repair, Orthopedic Surgery Additional Past Surgical History / Comment(s): PICC line/removed, bone marrow biopsy X 5, sinus surgery x 2, pilonidal cyst, rt shoulder rotator cuff, burak foot surgery, port right upper chest/later removed, Rt knee arthroscopy x 2, rt knee meniscus repair, back sx-"had nerves burned", robotic laparoscopic lysis of adhesions in January 2020. platelets transfusions. left knee arthroscopy, bilatera inguinal hernia repair Past Anesthesia/Blood Transfusion Reactions: No Reported Reaction Additional Past Anesthesia/Blood Transfusion Reaction / Comment(s): blood transfusions irradiated no problems Smoking Status: Former smoker - Past Family History Mother Family Medical History: Cancer Father History Unknown: Yes Family Medical History: Coronary Artery Disease (CAD) Additional Family Medical History / Comment(s): DM runs on his side of family General Exam - General Exam Comments Initial Comments: General: Appears in no acute distress. HEAD: Normal with no signs of head trauma. EYES: PERRLA, EOMI, conjunctiva normal, no discharge. ENT: Hearing grossly intact, normal oropharynx. RESPIRATORY: Clear breath sounds bilaterally. No wheezes, rales, or rhonchi. C/V: Regular rate and rhythm. S1 and S2 auscultated, no edema, peripheral pulses 2+ and intact throughout. Chest pain is not reproducible on palpation. ABD: Abd is soft, nontender, nondistended EXT: No obvious deformity SKIN: No rashes or lesions observed on exposed skin. NEURO: Alert and oriented x 4. No focal deficits. Course Vital Signs 09/19/24 07:36 Pulse Rate 88 Respiratory 18 Rate Blood Pressure 138/78 O2 Sat by Pulse 96 Oximetry Medical Decision Making - Medical Decision Making Was pt. sent in by a medical professional or institution (, PA, [employer], urgent care, hospital, or correction...) When possible be specific @ -No Did you speak to anyone other than the patient for history (EMS, parent, family, police, friend...)? What history was obtained from this source @ -No Did you review nursing and triage notes (agree or disagree)? Why? @ -I reviewed and agree with nursing and triage notes Were old charts reviewed (outside hosp., previous admission, EMS record, old EKG, old radiological studies, urgent care reports/EKG's, correction records)? Report findings @ -Old charts reviewed including comparison of EKG from October 2019 with no obvious acute changes when compared to today's EKG. Reviewed prior cardiac cath in our system from October 2017 which showed no significant CAD. Reviewed st ress test, both stress echo and EKG from August 2019 which revealed essentially normal dobutamine stress echocardiogram and EKG. Differential Diagnosis (chest pain, altered mental status, abdominal pain women, abdominal pain men, vaginal bleeding, weakness, fever, dyspnea, syncope, headache, dizziness, GI bleed, back pain, seizure, CVA, palpatations, mental health, musculoskeletal)? @ -Differential Chest Pain: Stable Angina, Unstable Angina, STEMI, NSTEMI Aortic Dissection, Pneumothorax, Musculoskeletal, Esophageal Spasm GERD, Cholecystitis, Pancreatitis, Zoster, this is not meant to be an all-inclusive list. EKG interpreted by me (3pts min.). @ -As above X-rays interpreted by me (1pt min.). @ -Patient's chest x-ray reveals no obvious acute cardiopulmonary process. CT interpreted by me (1pt min.). @ -None done U/S interpreted by me (1pt. min.). @ -None done What testing was considered but not performed or refused? (CT, X-rays, U/S, labs)? Why? @ -None What meds were considered but not given or refused? Why? @ -Considered aspirin however patient already received 324 mg of aspirin prior to arrival. Did you discuss the management of the patient with other professionals (pr ofessionals i.e. , PA, [employer], lab, RT, psych nurse, geriatric social worker, podiatry professor, teacher, conservation science officer, skilled nursing case manager)? Give summary @ -I spoke with the admitting provider, Dr. Mathias Who accepted the admission. Was smoking cessation discussed for >3mins.? @ -No Was critical care preformed (if so, how long)? @ -No Were there social determinants of health that impacted care today? How? (Homelessness, low income, unemployed, alcoholism, drug addiction, transportation, low edu. Level, literacy, decrease access to med. care, intermediate, rehab)? @ -No Was there de-escalation of care discussed even if they declined (Discuss DNR or withdrawal of care, Hospice)? DNR status @ -No What co-morbidities impacted this encounter? (DM, HTN, Smoking, COPD, CAD, Cancer, CVA, ARF, Chemo, Hep., AIDS, mental health diagnosis, sleep apnea, morbid obesity)? @ -Hypertension, hyperlipidemia, apparent prior CA. Patient Was patient admitted / discharged? Hospital course, mention meds given and route, prescriptions, significant lab abnormalities, going to OR and other pertinent info. @ -Based on the patient's presentation and physical exam, presents with chest pain that was relieved by nitro prior to arrival. Started this morning. Apparently does have a history of a prior CA but no stents. Vitals are currently within acceptable limits. Patient already received 324 mg of aspirin. States that 3 nitroglycerin sublingual tablets provided by EMS nearly resolved his pain. Therefore patient was placed on Nitropaste. Patient given a 1 L fluid bolus. We will obtain cardiopulmonary workup. Patient was in agreement this plan. Vitals are currently within acceptable limits. EKG shows no signs of acute ischemia. Laboratory studies are remarkable for an undetectable troponin. Remainder the labs unremarkable. Chest x-ray reveals no obvious acute cardiopulmonary process. On reevaluation, patient is resting comfortably. We discussed his workup and with his history and a moderate heart score, patient will be admitted for cardiac observation. Echo will be ordered. He was in agreement this plan. Car diology will be consulted. I spoke with the admitting provider, Who accepted the admission. Undiagnosed new problem with uncertain prognosis? @ -No Drug Therapy requiring intensive monitoring for toxicity (Heparin, Nitro, Insulin, Cardizem)? @ -No Were any procedures done? @ -No Diagnosis/symptom? @ -Chest pain Acute, or Chronic, or Acute on Chronic? @ -Acute Uncomplicated (without systemic symptoms) or Complicated (systemic symptoms)? @ -Complicated Side effects of treatment? @ -No Exacerbation, Progression, or Severe Exacerbation? @ -No Poses a threat to life or bodily function? How? (Chest pain, [place], CA, pneumonia, PE, COPD, DKA, ARF, appy, cholecystitis, CVA, Diverticulitis, Homicidal, Suicidal, threat to staff... and all critical care pts) @ -Potentially, yes - Lab Data Result diagrams: 09/19/24 07:56 09/19/24 07:56 Lab Results 09/19/24 09/19/24 09/19/24 Range/Units 07:56 07:56 07:56 WBC 4.7 (3.8-10.6) k/uL RBC 4.71 (4.30-5.90) m/uL Hgb 14.2 (13.0-17.5) gm/dL Hct 41.1 (39.0-53.0) % MCV 87.2 (80.0-100.0) fL MCH 30.1 (25.0-35.0) pg MCHC 34.5 (31.0-37.0) g/dL RDW 12.9 (11.5-15.5) % Plt Count 212 (150-450) k/uL MPV 7.1 Neutrophils % 58 % Lymphocytes % 33 % Monocytes % 5 % Eosinophils % 2 % Basophils % 1 % Neutrophils # 2.7 (1.3-7.7) k/uL Lymphocytes # 1.6 (1.0-4.8) k/uL Monocytes # 0.2 (0-1.0) k/uL Eosinophils # 0.1 (0-0.7) k/uL Basophils # 0.1 (0-0.2) k/uL PT 10.3 (10.0-12.5) sec INR 0.9 (<1.2) APTT 23.6 (22.0-30.0) sec Sodium 140 (137-145) mmol/L Potassium 3.9 (3.5-5.1) mmol/L Chloride 107 (98-107) mmol/L Carbon Dioxide 26 (22-30) mmol/L Anion Gap 7 mmol/L BUN 11 (9-20) mg/dL Creatinine 0.74 (0.66-1.25) mg/dL Est GFR (CKD-EPI)AfAm >90 (>60 ml/min/1.73 sqM) Est GFR (CKD-EPI)NonAf >90 (>60 ml/min/1.73 sqM) Glucose 129 H (74-99) mg/dL Calcium 8.8 (8.4-10.2) mg/dL Magnesium 2.1 (1.6-2.3) mg/dL Total Bilirubin 0.3 (0.2-1.3) mg/dL AST 20 (17-59) U/L ALT 31 (4-49) U/L Alkaline Phosphatase 95 (38-126) U/L Troponin I (0.000-0.034) ng/mL NT-Pro-B Natriuret Pep <20 pg/mL Total Protein 6.1 L (6.3-8.2) g/dL Albumin 4.0 (3.5-5.0) g/dL 09/19/24 Range/Units 07:56 WBC (3.8-10.6) k/uL RBC (4.30-5.90) m/uL Hgb (13.0-17.5) gm/dL Hct (39.0-53.0) % MCV (80.0-100.0) fL MCH (25.0-35.0) pg MCHC (31.0-37.0) g/dL RDW (11.5-15.5) % Plt Count (150-450) k/uL MPV Neutrophils % % Lymphocytes % % Monocytes % % Eosinophils % % Basophils % % Neutrophils # (1.3-7.7) k/uL Lymphocytes # (1.0-4.8) k/uL Monocytes # (0-1.0) k/uL Eosinophils # (0-0.7) k/uL Basophils # (0-0.2) k/uL PT (10.0-12.5) sec INR (<1.2) APTT (22.0-30.0) sec Sodium (137-145) mmol/L Potassium (3.5-5.1) mmol/L Chloride (98-107) mmol/L Carbon Dioxide (22-30) mmol/L Anion Gap mmol/L BUN (9-20) mg/dL Creatinine (0.66-1.25) mg/dL Est GFR (CKD-EPI)AfAm (>60 ml/min/1.73 sqM) Est GFR (CKD-EPI)NonAf (>60 ml/min/1.73 sqM) Glucose (74-99) mg/dL Calcium (8.4-10.2) mg/dL Magnesium (1.6-2.3) mg/dL Total Bilirubin (0.2-1.3) mg/dL AST (17-59) U/L ALT (4-49) U/L Alkaline Phosphatase (38-126) U/L Troponin I <0.012 (0.000-0.034) ng/mL NT-Pro-B Natriuret Pep pg/mL Total Protein (6.3-8.2) g/dL Albumin (3.5-5.0) g/dL - EKG Data -: EKG Interpreted by Me EKG Comments: 12-lead Electrocardiogram Interpretation Note EKG was reviewed and interpreted by myself. 12-lead ECG performed at 0727 is interpreted by me as revealing normal sinus rhythm at a rate of 79 beats per minute. [place] is normal. PA interval is 176 ms, QRS duration is 90 ms, QTc is 413 ms.. There were no ST or T wave abnormalities to suggest myocardial ischemi a or injury. R wave progression across the precordium was delayed. By my interpretation this EKG is non-diagnostic for acute ischemia. Compared with EKG from October 2019 with no dynamic changes. Disposition Clinical Impression: Chest pain Disposition: ADMITTED IP TO THIS HOSP Condition: Stable Time of Disposition: 08:54
--- NOTE | 2024-09-19 08:47 | XR ---
EXAMINATION TYPE: XR chest 2V DATE OF EXAM: 09/19/2024 8:43 AM COMPARISON: Chest radiographs from 11/26/2021 CLINICAL INDICATION: Male, 59 years old with history of Chest Pain; [facility] TECHNIQUE: XR chest 2V Frontal and lateral views of the chest. FINDINGS: Lungs/Pleura: There is no evidence of pleural effusion, focal consolidation, or pneumothorax. Pulmonary vascularity: Unremarkable. Heart/mediastinum: Cardiomediastinal silhouette is unremarkable. Musculoskeletal: No acute osseous pathology. Other findings: None IMPRESSION: No acute cardiopulmonary disease/process. [facility], , 09/19/2024 8:45 AM
[2024-09-19] MEDS ORDERED: NALOXONE 0.4 MG/ML 1 ML VIAL IV PRN (09:11)
[2024-09-19] MEDS ORDERED: amLODIPine 10 MG TAB PO SCH (10:00)
[2024-09-19] MEDS ORDERED: ALPRAZolam 0.5 MG TAB PO PRN (10:36)
[2024-09-19] MEDS: lisinopriL 20 MG TAB PO SCH (10:49)
[2024-09-19] MEDS: amLODIPine 5 MG TAB PO SCH (10:49)
[2024-09-19] MEDS: ACETAMINOPHEN TAB 325 MG TAB PO PRN (12:24)
--- NOTE | 2024-09-19 15:14 | P.HPIM ---
History of Present Illness H&P Date: 09/19/24 History of present illness; patient 59-year-old gentleman with past medical history significant for hypertension, COPD, hyperlipidemia, AML who presented the ER because of chest pain. Patient said he was all right this morning when he woke up with chest pain that was left-sided, severe, crushing in nature, radiating to the left shoulder, no aggravating or relieving factor associated with chest pain. There was no complaint of shortness of breath. There was no complaint of palpitation. Because of the chest pain, EMS was called, patient was given aspirin as well as nitro that relieved the patient's chest pain. Patient brought to the ER Initial lab work done in the ER showed WBC 4.7, hemoglobin 14.2, platelet count 212, sodium 140, potassium 3.9, BUN 11, creatinine 0.74, glucose 129, AST 20, ALT 31, proBNP 20 EKG done in the ER showed heart rate of 79, no ST segment elevation or depressi on seen, no T-wave inversions seen. Chest x-ray done in the ER showed no acute cardiopulmonary process Patient admitted to internal medicine service REVIEW OF SYSTEMS: CONSTITUTIONAL: No fever, no malaise, no fatigue. HEENT: No recent visual problems or hearing problems. Denied any sore throat. CARDIOVASCULAR: As mentioned above PULMONARY: As mentioned above GASTROINTESTINAL: No diarrhea, no nausea, no vomiting, no abdominal pain. NEUROLOGICAL: No headaches, no weakness, no numbness. HEMATOLOGICAL: Denies any bleeding or petechiae. GENITOURINARY: Denies any burning micturition, frequency, or urgency. MUSCULOSKELETAL/RHEUMATOLOGICAL: Denies any joint pain, swelling, or any muscle pain. ENDOCRINE: Denies any polyuria or polydipsia. The rest of the 14-point review of systems is negative. PHYSICAL EXAMINATION: GENERAL: The patient is alert and oriented x3, not in any acute distress. Well developed, well nourished. HEENT: Pupils are round and equally reacting to light. EOMI. No scleral icterus. No conjunctival pallor. Normocephalic, atraumatic. No pharyngeal erythema. No thyromegaly. CARDIOVASCULAR: S1 and S2 present. No murmurs, rubs, or gallops. PULMONARY: Chest is clear to auscultation, no wheezing or crackles. ABDOMEN: Soft, nontender, nondistended, normoactive bowel sounds. No palpable organomegaly. MUSCULOSKELETAL: No joint swelling or deformity. EXTREMITIES: No cyanosis, clubbing, or pedal edema. NEUROLOGICAL: Gross neurological examination did not reveal any focal deficits. SKIN: No rashes. Assessment and plan Chest pain, rule out acute coronary syndrome Hypertension Hyperlipidemia History of COPD History of AML Monitor vital signs Monitor CBC Monitor CMP Continue telemetry monitoring Serial troponins Ordered 2D echo Ordered stress test Resume home medicine consult cardiology Labs and medication were reviewed.. Continue same treatment. Continue with symptomatic treatment. Resume home medication. Monitor labs and vitals. DVT and GI prophylaxis. Further recommendations as per clinical course of the patient Dictation was produced using [employer] dictation software. please excuse any grammatical, word or spelling errors. Past Medical History Past Medical History: Cancer, Chest Pain / Angina, COPD, GERD/Reflux, Hearing Disorder / Deafness, Hyperlipidemia, Hypertension, Memory Impairment, Myocardial Infarction (ME), Musculoskeletal Disorder, Neurologic Disorder, Osteoarthritis (OA), Pneumonia, Respiratory Disorder, Syncope Additional Past Medical History / Comment(s): migraines, heart murmur from - prolapsed mitral valve, pain in rt hip and down leg, lower legs and and ankles sensitive to touch, neuropathy rt left legs and feet, AML/APL leukemia 2013-f inished chemo 2014,"has had irradiated blood transfusions" c-diff x 2 in 2004 and 2014. 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 as pleurisy,small cell/small fiber neuropathy,fx left ankle 08/04/21, lumbar issues, 50% hearing loss left side. some tinnitis. DDD, Claustrophobia. more recent abdominal and back pain is reason for colonoscopy Last Myocardial Infarction Date:: 2009 History of Any Multi-Drug Resistant Organisms: C-DIFF Date of last positivie culture/infection: 02/20/2013 MDRO Source:: stool Past Surgical History: Appendectomy, Back Surgery, Cholecystectomy, Heart Catheterization, Hernia Repair, Orthopedic Surgery Additional Past Surgical History / Comment(s): PICC line/removed, bone marrow biopsy X 5, sinus surgery x 2, pilonidal cyst, rt shoulder rotator cuff, burak foot surgery, port right upper chest/later removed, Rt knee arthroscopy x 2, rt knee meniscus repair, back sx-"had nerves burned", robotic laparoscopic lysis of adhesions in January 2020. platelets transfusions. left knee arthroscopy, bilatera inguinal hernia repair Past Anesthesia/Blood Transfusion Reactions: No Reported Reaction Additional Past Anesthesia/Blood Transfusion Reaction / Comment(s): blood transfusions irradiated no problems Smoking Status: Former smoker - Past Family History Mother Family Medical History: Cancer Father History Unknown: Yes Family Medical History: Coronary Artery Disease (CAD) Additional Family Medical History / Comment(s): DM runs on his side of family Medications and Allergies Home Medications Medication Instructions Recorded Confirmed Type Omeprazole [PriLOSEC] 20 mg PO DAILY 09/18/14 09/19/24 History ALPRAZolam [Xanax] 0.5 mg PO HS PRN 05/21/21 09/19/24 History Ibuprofen [Motrin] 800 mg PO TID PRN 09/12/21 09/19/24 History Gabapentin [Neurontin] 1,600 mg PO HS 09/19/24 09/19/24 History Gabapentin [Neurontin] 800 mg PO DAILY 09/19/24 09/19/24 History Montelukast [Singulair] 10 mg PO HS 09/19/24 09/19/24 History amLODIPine BESYLATE/BENAZEPRIL 1 cap PO DAILY 09/19/24 09/19/24 History [Lotrel 5-20 mg Capsule] Allergies Allergy/AdvReac Type Severity Reaction Status Date / Time Penicillins Allergy Severe Rash/Hives, Verified 09/19/24 09:41 Nausea morphine Allergy Anaphylaxis Verified 09/19/24 09:41 moxifloxacin HCl AdvReac Intermediate Nausea Verified 09/19/24 09:41 [From Avelox] cephalexin monohydrate AdvReac c-diff Verified 09/19/24 09:41 [From Keflex] MOLD AdvReac Severe Dyspnea, Uncoded 09/19/24 09:41 Watery Eyes, Runny Nose mushroom AdvReac Dyspnea Uncoded 09/19/24 09:41 Physical Exam Vitals: Vital Signs Pulse Resp BP Pulse Ox 09/19/24 07:36 88 18 138/78 96 Intake and Output 09/18/24 09/19/24 09/19/24 22:59 06:59 14:59 Other: Weight 108.862 kg Results CBC & Chem 7: 09/19/24 07:56 09/19/24 07:56 Labs: Abnormal Lab Results - Last 24 Hours (Table) 09/19/24 Range/Units 07:56 Glucose 129 H (74-99) mg/dL Total Protein 6.1 L (6.3-8.2) g/dL
[2024-09-19] MEDS: HEPARIN SODIUM,PORCINE 5,000 UNIT/ML 1 ML VIAL SQ SCH (16:13)
[2024-09-19] MEDS: MONTELUKAST 10 MG TAB PO SCH (20:23)
[2024-09-19] MEDS: GABAPENTIN 400 MG CAP PO SCH (20:24)
[2024-09-19] MEDS: ATORVASTATIN 40 MG TAB PO SCH (20:24)
[2024-09-19 22:42] VITALS: TEMP 97.6
[2024-09-20] MEDS ORDERED: DOBUTamine DRIP for NUC MED 500 MG in DEXTROSE/WATER 1 250ML.BAG IV PRN (05:00)
[2024-09-20 07:41] VITALS: BP 146/100; PULSE 98; RESP 16
[2024-09-20] MEDS ORDERED: DOBUTamine DRIP for NUC MED 500 MG/250 ML BAG IV ONE (08:00)
[2024-09-20 09:01] LABS: ALT 35 U/L (10-49); AST 20 U/L (14-35); Albumin 4.2 g/dL (3.8-4.9); Alkaline Phosphatase 82 U/L (41-126); BUN/Creat Ratio 13.14 Ratio (12.00-20.00); Blood Urea Nitrogen 9.2 mg/dL (9.0-27.0); Calcium 8.8 mg/dL (8.7-10.3); Carbon Dioxide 22.7 mmol/L (21.6-31.8); Chloride 105 mmol/L (96-109); Glucose 113 mg/dL (70-110); Potassium 3.6 mmol/L (3.5-5.5); Sodium 139 mmol/L (135-145); Total Bilirubin 0.4 mg/dL (0.3-1.2); Total Protein 6.2 g/dL (6.2-8.2)
--- NOTE | 2024-09-20 09:09 | CONS ---
CONSULTATION HISTORY OF PRESENT ILLNESS: Mr. Knight is a 59-year-old gentleman, with history of hypertension, COPD, gastroesophageal reflux disease, and prior history of catheterization without any stenting and AML, who presented to the hospital with left shoulder pain and also had chest pain. At the time of my evaluation, the patient appears chest pain-free and is hemodynamically stable. EKG shows sinus rhythm with nonspecific ST-T wave changes. We have 1 set of troponin that is negative. BNP is normal. PAST MEDICAL HISTORY: Significant for hypertension, peripheral neuropathy, and history of AML. MEDICATIONS: Are as charted. ALLERGIES: Are as charted. FAMILY HISTORY: Negative for premature coronary artery disease. SOCIAL HISTORY: Negative for current smoking, EtOH abuse, or drug abuse. REVIEW OF SYSTEMS: 14 out of 14 review of systems has been performed, pertinents are as documented. PHYSICAL EXAMINATION: Comfortable at rest. Vital signs are stable. There is no jugular venous distention. Carotid upstroke is normal. There is no bruit. Chest exam reveals good air entry bilaterally. Heart exam reveals first and second heart sounds. No gallop. Exam of extremities did not reveal any edema. Peripheral pulses are felt. LABORATORY DATA: Labs show that the hemoglobin is 14.2. One set of troponin is negative. ASSESSMENT AND PLAN: Precordial chest pain. PLAN: We will obtain another set of troponin. If he remains pain-free, trops are negative, we will perform a dobutamine stress echo on him tomorrow. NATTY / RODNEY: [id number] /
[2024-09-20 09:21] LABS: Basophils # (A) 0.04 X 10*3/uL (0.00-0.10); Basophils % (A) 0.9 %; Eosinophils # (A) 0.07 X 10*3/uL (0.04-0.35); Eosinophils % (A) 1.6 %; HCT 42.3 % (39.6-50.0); HGB 14.7 g/dL (13.0-17.0); Lymphocytes # (A) 1.81 X 10*3/uL (0.90-5.00); Lymphocytes % (A) 41.7 %; MCH 29.8 pg (27.0-32.0); MCHC 34.8 g/dL (32.0-37.0); MCV 85.6 FL (80.0-97.0); Mean Platelet Volume 10.1 FL (9.5-12.2); Monocytes % (A) 6.9 %; NRBC Per 100 WBC 0 X 10*3/uL (0.00-0.01); Neutrophils # (A) 2.11 X 10*3/uL (1.80-7.70); Neutrophils % (A) 48.7 %; Platelet Count 205 X 10*3/uL (140-440); RBC 4.94 X 10*6/uL (4.40-5.60); RDW 12.4 % (11.5-14.5); WBC 4.34 X 10*3/uL (4.50-10.00)
[2024-09-20] MEDS: GABAPENTIN 400 MG CAP PO SCH (12:38)
[2024-09-20] MEDS: ASPIRIN 81 MG PO SCH (12:39)
[2024-09-20] MEDS: PANTOPRAZOLE 40 MG TABLET PO SCH (12:39)
--- NOTE | 2024-09-20 13:16 | P.PN ---
Subjective HISTORY OF PRESENT ILLNESS: This is a 59-year-old male who does not follow regularly with a biomathematician. He initially presented to the hospital with chest pain. Patient examined this morning the bedside. Patient currently denies any chest pain or pressure. He denies any shortness of breath. Vital signs are stable. PHYSICAL EXAM: VITAL SIGNS: Reviewed. GENERAL: Well-developed in no acute distress. NECK: Supple. No JVD or thyromegaly LUNGS: Respirations even and unlabored. Lungs essentially clear to auscultation bilaterally. HEART: Regular rate and rhythm. S1 and S2 heard. EXTREMITIES: Normal range of motion. No clubbing or cyanosis. Peripheral pulses intact. No lower extremity edema ASSESSMENT: Chest pain History of hypertension History of neuropathy History of AML Normal coronary arteries, per cath in 2018 PLAN: 2D echo ordered. Await results. Continue current cardiac medications Patient to undergo dobutamine stress test today If negative, he may be discharged home from a cardiac standpoint Further recommendations pending patient course Nurse practitioner note has been reviewed by physician. Signing provider agrees with the documented findings, assessment, and plan of care documented by CORE STRIPPER as a scribe. Objective - Vital Signs Vital signs: Vital Signs Temp 97.6 F 09/20/24 07:40 Pulse 98 09/20/24 07:40 Resp 16 09/20/24 07:40 BP 146/100 09/20/24 07:40 Pulse Ox 98 09/20/24 07:40 FiO2 Intake & Output 09/19/24 09/20/24 09/20/24 18:59 06:59 18:59 Weight 108.862 kg 108.862 kg - Labs CBC & Chem 7: 09/20/24 06:10 09/20/24 06:10 Labs: Abnormal Lab Results - Last 24 Hours (Table) 09/20/24 09/20/24 Range/Units 06:10 06:10 WBC 4.34 L (4.50-10.00) X 10*3/uL Glucose 113 H (70-110) mg/dL
--- NOTE | 2024-09-20 13:30 | CA ---
Dobutamine Stress Echocardiogram Report João Knight Age: 59 Gender: M : 1965 Exam Date: 09/20/2024 11:58 Exam Location: [place] [facility] Ordering Physician: Eloisa Nava Referring Physician: [id number] Nude Model: Xena Davis RDCS Technologist: Ht (in): 70 Wt (lb): 240 Procedure CPT: Indication: CP ICD-9 Codes: Rhythm: Patient History: CHEST PAIN, HTN, PRIOR [place], PRIOR CATH, PALPITATIONS Cardiac Medications: Medications in past 24 hours: Contrast: Total Dose (mL): Stress Results Protocol: Dobutamine Peak Dose (???g/kg/min): 30 Duration (min:sec): Atropine:(mg) N/A Target HR: 139 Double Product: Resting HR: 74 Resting BP: 143 / 84 Peak HR: 144 Peak BP: 143 / 84 Max Predicted HR: 163 88 % Max Predicted HR Stress Summary: BP Response: Reason for Termination: Target HR Cardiac Symptoms: NO SYMPTOMS ECG Analysis Resting EKG: Stress EKG: Arrhythmia: Echo Analysis Base Echo Analysis: Low Echo Anaylsis: Peak Echo Analysis: Recovery Echo: MEASUREMENTS (Male/Female) Normal Values CONCLUSIONS Normal electrocardiogram and echocardiogram with dobutamine Dr. David Lozano MD (Electronically Signed) Final Date: 20 September 2024 13:29
--- NOTE | 2024-09-20 13:31 | CA ---
Transthoracic Echo Report Name: João Knight Age: 59 Gender: M : 1965 Exam Date: 09/20/2024 11:39 Exam Location: [place] [facility] Ht (in): 70 Wt (lb): 240 Ordering Physician: Luis Fernando Mehta MD Attending/Referring Phys: [place] Guide Xena Davis RDCS Procedure CPT: Indications: Chest Pain Cardiac Hx: Technical Quality: Good Contrast 1: Total Dose (mL): Contrast 2: Total Dose (mL): MEASUREMENTS (Male / Female) Normal Values 2D ECHO LV Diastolic Diameter PLAX 4.6 cm 4.2 - 5.9 / 3.9 - 5.3 cm LV Systolic Diameter PLAX 3.3 cm IVS Diastolic Thickness 0.9 cm 0.6 - 1.0 / 0.6 - 0.9 cm LVPW Diastolic Thickness 0.8 cm 0.6 - 1.0 / 0.6 - 0.9 cm LV Relative Wall Thickness 0.4 LVOT Diameter 2.3 cm Aortic Root Diameter 3.7 cm LV Diastolic Volume MOD BP 107.2 cm??? 67 - 155 / 56 - 104 cm??? LV Systolic Volume MOD BP 44.8 cm??? 22 - 58 / 19 - 49 cm??? LV Ejection Fraction MOD BP 58.2 % >= 55 % LV Cardiac Index MOD BP 1986.8 cm???/min???m??? LV Diastolic Volume MOD 4C 101.3 cm??? LV Systolic Volume MOD 4C 39.7 cm??? LV Ejection Fraction MOD 4C 60.8 % LV Cardiac Index MOD 4C 1958.9 cm???/min???m??? LV Diastolic Length 4C 8.5 cm LV Systolic Length 4C 7.0 cm LV Diastolic Volume MOD 2C 114.7 cm??? LV Systolic Volume MOD 2C 49.3 cm??? LV Ejection Fraction MOD 2C 57.1 % LV Cardiac Index MOD 2C 2083.1 cm???/min???m??? LV Diastolic Length 2C 8.6 cm LV Systolic Length 2C 7.2 cm LA Volume 45.1 cm??? 18 - 58 / 22 - 52 cm??? LA Volume Index 19.1 cm???/m??? 16 - 28 cm???/m??? Ascending Aorta Diameter 3.2 cm DOPPLER AV Peak Velocity 103.5 cm/s AV Peak Gradient 4.3 mmHg AV Mean Velocity 75.8 cm/s AV Mean Gradient 2.5 mmHg AV Velocity Time Integral 20.1 cm LVOT Peak Velocity 91.9 cm/s LVOT Peak Gradient 3.4 mmHg LVOT Velocity Time Integral 18.3 cm LVOT Stroke Volume 77.6 cm??? LVOT Stroke Volume Index 34.4 ml/m??? LVOT Cardiac Index 2468.7 cm???/min???m??? AV Area Cont Eq vti 3.9 cm??? AV Area Cont Eq pk 3.8 cm??? MV Area PHT 3.7 cm??? Mitral E Point Velocity 45.9 cm/s Mitral A Point Velocity 48.3 cm/s Mitral E to A Ratio 0.9 MV Deceleration Time 204.2 ms PV Peak Velocity 122.4 cm/s PV Peak Gradient 6.0 mmHg FINDINGS Left Ventricle Left ventricular ejection fraction is estimated at 55-60 %. Left ventricular cavity size normal. Left ventricular wall thickness normal. No obvious regional wall motion abnormalities. Right Ventricle Normal right ventricular size and function. Unable to estimate the right ventricular systolic pressure. Right Atrium Normal right atrial size. Left Atrium Normal left atrial size. Mitral Valve Structurally normal mitral valve. No evidence for mitral valve prolapse. No mitral stenosis. Mild mitral regurgitation. Aortic Valve Trileaflet aortic valve. No aortic valve stenosis or regurgitation. Tricuspid Valve Structurally normal tricuspid valve. No tricuspid stenosis. Trace tricuspid regurgitation. Pulmonic Valve Structurally normal pulmonic valve. No pulmonic stenosis. Trace pulmonic regurgitation. Pericardium No pericardial effusion. Aorta Normal size aortic root and proximal ascending aorta. CONCLUSIONS Normal biventricular systolic function No significant valvular abnormality Previewed by: Dr. David Lozano MD (Electronically Signed) Final Date: 20 September 2024 13:31
--- NOTE | 2024-09-20 14:15 | P.DS ---
Providers Date of admission: 09/19/24 09:12 Expected date of discharge: 09/20/24 Attending physician: Pat Hernández Consults: 09/19/24 09:10 Consult Physician Routine Consulting Provider: [facility] Consult Reason/Comments: chest pain Do you want consulting provider notified?: Yes Primary care physician: [facility] Course: Discharge diagnoses; Chest pain, acute coronary syndrome ruled out Hypertension Hyperlipidemia History of COPD History of AML Hospital course; patient 59-year-old gentleman with past medical history significant for hypertension, COPD, hyperlipidemia, AML who presented the ER because of chest pain. Patient said he was all right this morning when he woke up with chest pain that was left-sided, severe, crushing in nature, radiating to the left shoulder, no aggravating or relieving factor associated with chest pain. There was no complaint of shortness of breath. There was no complaint of palpitation. Because of the chest pain, EMS was called, patient was given aspirin as well as nitro that relieved the patient's chest pain. Patient brought to the ER Initial lab work done in the ER showed WBC 4.7, hemoglobin 14.2, platelet count 212, sodium 140, potassium 3.9, BUN 11, creatinine 0.74, glucose 129, AST 20, ALT 31, proBNP 20 EKG done in the ER showed heart rate of 79, no ST segment elevation or depression seen, no T-wave inversions seen. Chest x-ray done in the ER showed no acute cardiopulmonary process Patient admitted to internal medicine service 09/20. Patient seen and examined. Patient was seen by cardiology and 2D echo and dobutamine stress test was ordered which was negative for any ischemia. 2D echo done showed normal biventricular systolic function, no significant valvular abnormality. Cardiology cleared the patient for discharge PHYSICAL EXAMINATION: GENERAL: The patient is alert and oriented x3, not in any acute distress. Well developed, well nourished. HEENT: Pupils are round and equally reacting to light. EOMI. No scleral icterus. No conjunctival pallor. Normocephalic, atraumatic. No pharyngeal erythema. No thyromegaly. CARDIOVASCULAR: S1 and S2 present. No murmurs, rubs, or gallops. PULMONARY: Chest is clear to auscultation, no wheezing or crackles. ABDOMEN: Soft, nontender, nondistended, normoactive bowel sounds. No palpable organomegaly. MUSCULOSKELETAL: No joint swelling or deformity. EXTREMITIES: No cyanosis, clubbing, or pedal edema. NEUROLOGICAL: Gross neurological examination did not reveal any focal deficits. SKIN: No rashes. Dictation was produced using [employer] dictation software. please excuse any grammatical, word or spelling errors. Patient Condition at Discharge: Stable Plan - Discharge Summary Discharge Rx Participant: Yes New Discharge Prescriptions: New Aspirin 81 mg PO DAILY #30 tab Atorvastatin [Lipitor] 40 mg PO HS #30 tab Continue Omeprazole [PriLOSEC] 20 mg PO DAILY ALPRAZolam [Xanax] 0.5 mg PO HS PRN PRN Reason: Anxiety Gabapentin [Neurontin] 800 mg PO DAILY Ibuprofen [Motrin] 800 mg PO TID PRN PRN Reason: Pain Montelukast [Singulair] 10 mg PO HS amLODIPine BESYLATE/BENAZEPRIL [Lotrel 5-20 mg Capsule] 1 cap PO DAILY Gabapentin [Neurontin] 1,600 mg PO HS Discharge Medication List Omeprazole [PriLOSEC] 20 mg PO DAILY 09/18/14 [History] ALPRAZolam [Xanax] 0.5 mg PO HS PRN 05/21/21 [History] Ibuprofen [Motrin] 800 mg PO TID PRN 09/12/21 [History] Gabapentin [Neurontin] 1,600 mg PO HS 09/19/24 [History] Gabapentin [Neurontin] 800 mg PO DAILY 09/19/24 [History] Montelukast [Singulair] 10 mg PO HS 09/19/24 [History] amLODIPine BESYLATE/BENAZEPRIL [Lotrel 5-20 mg Capsule] 1 cap PO DAILY 09/19/24 [History] Aspirin 81 mg PO DAILY #30 tab 09/20/24 [Rx] Atorvastatin [Lipitor] 40 mg PO HS #30 tab 09/20/24 [Rx] Follow up Appointment(s)/Referral(s): None,Stated [REFERRING] - 1-2 days Discharge Disposition: HOME SELF-CARE
== END 2024-09-20 16:30 | disposition home or self-care (01) ==
LOC: EC 07:13 → 6NMEDSUR 09:12
PROVIDERS: ADMIT Hospitalist; ATTEND Hospitalist
DX: R07.2 Precordial pain (principal); M25.512 Pain in left shoulder; I10 Essential (primary) hypertension; E78.5 Hyperlipidemia, unspecified; J44.9 Chronic obstructive pulmonary disease, unspecified; C92.01 Acute myeloblastic leukemia, in remission; G62.9 Polyneuropathy, unspecified; K21.9 Gastro-esophageal reflux disease without esophagitis; I25.2 Old myocardial infarction; Z79.899 Other long term (current) drug therapy; Z88.0 Allergy status to penicillin; Z88.1 Allergy status to other antibiotic agents; Z88.5 Allergy status to narcotic agent; Z91.018 Allergy to other foods; Z91.048 Other nonmedicinal substance allergy status; Z87.891 Personal history of nicotine dependence
CPT/HCPCS: 96360; 96372; 99285; 36415; 93005; 93306; 93351; 85379; 83880; 80053 ×2; 83735; 84484; 85025 ×2; 85610; 85730; 71046; G0378 ×2; J1644

== ENCOUNTER → 2025-03-01 | Outpatient (CLI) | payer MEDICARE ==
--- NOTE | 2025-03-01 10:40 | XR ---
EXAMINATION TYPE: XR ribs RT DATE OF EXAM: 03/01/2025 10:30 AM COMPARISON: None. CLINICAL INDICATION: Male, 59 years old with history of R19.01 RIGHT UPPER QUADRANT ABDOMINAL SWELLIN CHATO Lin, pain TECHNIQUE: 2 view(s) obtained. FINDINGS: No acute fractures of the right ribs are evident. No pneumothorax is evident on these images. There i s some degenerative change at the glenohumeral junction. There is some fullness along the lateral chest wall. Underlying osseous abnormality is not identified . Consider CT chest if additional evaluation would be of benefit. IMPRESSION: 1. No acute osseous abnormality right ribs. Follow-up can be performed as clinically indicated. [facility], , 03/01/2025 10:38 AM
[2025-03-01 15:23] LABS: ALT 20 U/L (10-49); AST 15 U/L (14-35); Albumin 4.3 g/dL (3.8-4.9); Albumin/Globulin Ratio 2.26 Ratio (1.60-3.17); Alkaline Phosphatase 86 U/L (41-126); BUN/Creat Ratio 13.89 Ratio (12.00-20.00); Blood Urea Nitrogen 12.5 mg/dL (9.0-27.0); Calcium 9.3 mg/dL (8.7-10.3); Carbon Dioxide 26.7 mmol/L (21.6-31.8); Chloride 104 mmol/L (96-109); Chol/HDL Ratio 2.93 Ratio; Globulin 1.9 g/dL (1.6-3.3); Glucose 103 mg/dL (70-110); LDL Cholesterol,Calculated 68.1 mg/dL (0.0-131.0); Lipase 67 U/L (14-60); Potassium 4.9 mmol/L (3.5-5.5); Prostate Specific Antigen 1.38 ng/mL (0.000-3.500); Sodium 140 mmol/L (135-145); Total Bilirubin 0.4 mg/dL (0.3-1.2); Total Protein 6.2 g/dL (6.2-8.2); VLDL Calculation 17.64 mg/dL (5.00-40.00)
== END | disposition home or self-care (01) ==
LOC: RADXRMAIN 10:11
PROVIDERS: ATTEND Family Medicine
DX: R19.01 Right upper quadrant abdominal swelling, mass and lump (principal); R97.8 Other abnormal tumor markers; C92.01 Acute myeloblastic leukemia, in remission; K76.0 Fatty (change of) liver, not elsewhere classified; I25.84 Coronary atherosclerosis due to calcified coronary lesion
CPT/HCPCS: 80053; 80061; 83036; 83690; 84153; 84443; 86301

== ENCOUNTER → 2025-03-04 | Outpatient (CLI) | payer MEDICARE ==
--- NOTE | 2025-03-04 12:42 | US ---
EXAMINATION TYPE: US abdomen limited DATE OF EXAM: 03/04/2025 COMPARISON: NONE CLINICAL INDICATION: Male, 59 years old with history of R19.01 RUQ ABD SWELLING, MASS AND LUMP; Hx Le ukemia with chemotherapy, bilateral abdominal hernias with mesh, and liver lipoma. Right rib cage ten derness with lump felt by doctor TECHNIQUE: FINDINGS: No abnormalities seen around AOC, Liver, right Kidney or surrounding areas. IMPRESSION: 1. No suspicious abnormality at the area of concern right upper quadrant. [facility], , 03/04/2025 12:39 PM
== END | disposition home or self-care (01) ==
LOC: RADUSWWP 09:58
PROVIDERS: ATTEND Family Medicine
DX: R19.01 Right upper quadrant abdominal swelling, mass and lump (principal); Z85.6 Personal history of leukemia
CPT/HCPCS: 76705

== ENCOUNTER → 2025-03-21 | Outpatient (CLI) | payer MEDICARE ==
[2025-03-21 09:21] VITALS: BP 143/89; PULSE 74; RESP 16; TEMP 97.7
--- NOTE | 2025-03-21 15:20 | P.PAINPG ---
PQRS Measure Charge Sheet Comment: HISTORY OF PRESENT ILLNESS: A 59 yr old male as a referral from Dr Rg presents today w severe and chronic generalized pain secondary to complications of AML/ APL Leukemia (2013), pancreatitis and hx of BL inguinal hernia repair for evaluation. Pt states pain level is provoked at 8 /10 in intensity, constant, localized in the BL abdominal UQ, achy in character without shooting pain. Pain has no provication. Pain is alleviated by PT x 6 wks which ended in 2021, physician guided home stretches daily since 2022, heat, medications, repositioning and rest . PMH: OA, AML/ APL Leukemia (2013), Angina, COPD, GERD, [place], Hyperlipidemia, HTN, Memory Impairment, [place] (2009, 2020), Migraine PSH: Lumbar RFA, (01/2020), Bone Marrow Biopsy x5, MVP, L Ankle Fx (2020), Appendectomy, Cholecystectomy, Heart Catheterization, BL Inguinal Hernia Repair, R RCT Repair, R Knee Arthroscopy x2, L Knee Arthroscopy SH: Former tobacco user, No ETOH use, No illicit drug use FH: Mo- CA. Fa- CAD All: See list Medications include Neurontin, Aleve, Ibu REVIEW OF ORGAN SYSTEMS: CONSTITUTIONAL: No fevers or chills. No recent weight loss. NEUROLOGICAL: + numbness and tingling along the distal extremities. No seizure disorders or headaches. MUSCULOSKELETAL: + pain PSYCHIATRIC: Denies current depression or suicidal thoughts. Physical Examinations : Constitutional : Cooperative , not in acute distress . +RUQ> LUQ TTP Neurologic : Cranial nerve II to XII intact. No focal neurological deficits. Psychiatric : alert & oriented x 3. Matching mood & appropriate affect. Judgment & insight intact. Musculoskeletal : Cervical Spine Motor strength in the deltoid and biceps: Normal right side. Normal Left side Motor strength biceps and the wrist extensors: Normal right side . Normal left side Motor strength in the triceps muscle: Normal right side. Normal left side Deep tendon reflexes: Normal at the biceps. Normal at Brachioradialis. Normal at triceps Vertebral body tenderness to deep palpation over Cervical facet loading test: positive bilaterally Spurling test: positive bilaterally Neck distraction test: positive bilaterally Antonia sign: positive bilaterally Lumbar spine Motor strength lower extremities ,thigh and legs 5/5 Right side , 5/5 Left side Deep tendon reflexes : Normal Knee Jerk. Normal Ankle Jerk Vertebral body tenderness over Montoya Test positive Lumbar facet Loading Test: positive Right / positive Left Range of motion of the lumbar spine Flexion 30 degrees, extension 10 degrees Straight Leg Raise test: Left/ Right positive at degrees Pari test: positive right / positive left. Severe tenderness over the Sacroiliac joint on the Right / Left sides Gaenslen test: positive bilaterally Seated flexion test: positive bilaterally. Sacral spine : Severe tenderness over the Sacroiliac joint: right side / left side Range of motion: Flexion of the lumbar spine <60 degrees Range of motion: Extension of the lumbar spine <20 degrees Gaenslen's Test positive Pari test: positive right side / left side Thigh Thrust Test Sacral Thrust Test Assessment/ Plan : AML/ APL Leukemia, chronic pancreatitis, hx of BL hernia repair Recommendation of medication management and Celiac Plexus Block #1. Tyl #3 #60 w RF. Opiate/ narcotic agreement signed 03/21/25. Risks, benefits of procedure discussed and patient verbalized understanding. Admits to anti- coagulant use or medical history of diabetes. Protocol for discontinuation/ continuation of medications jeff procedure discussed. Minimal anesthesia provided, if clinically indicated, consisting of Versed and Fentanyl. All questions answered. I have spent greater than 30 minutes on patient care today. Dr Sarah was available by phone for the evaluation of this patient. The time was used to review the medical records including relevant urine studies and Prescription history (MAPs), review of the available imaging, evaluation and examination of the patient, coordination of care with the medical staff and if applicable referring physicians, as well as creation of the medical record - Pain Location Generalized Non-Pharmacological Interventions: Heat, Inactivity, Physical Therapy, Position/Reposition, Relaxation Technique, Sitting Pharmacological Interventions: Block, Epidural, PRN Medication, Topical Medication PQRS Narrative: Smoking Status Former smoker Hx Alcohol Use (MH) Yes: rare Home Medications: Ambulatory Orders Omeprazole [PriLOSEC] 20 mg PO DAILY 09/18/14 ALPRAZolam [Xanax] 0.5 mg PO HS PRN 05/21/21 Ibuprofen [Motrin] 800 mg PO TID PRN 09/12/21 Gabapentin [Neurontin] 1,600 mg PO HS 09/19/24 Gabapentin [Neurontin] 800 mg PO DAILY 09/19/24 Montelukast [Singulair] 10 mg PO HS 12/29/24 amLODIPine BESYLATE/BENAZEPRIL [Lotrel 5-20 mg Capsule] 1 cap PO DAILY 09/19/24 Aspirin 81 mg PO DAILY #30 tab 09/20/24 Acetaminophen-Codeine 300-30mg [Tylenol w/codeine #3] 1 tab PO BID PRN 30 Days #60 tablet 03/21/25 Controlled Substance Measures - Controlled Substance Measures Is patient prescribed a controlled substance at discharge?: Yes When asked, does pt state using other controlled substances?: Yes If prescribed controlled substance>3 days was MAPS reviewed?: Yes If Rx opioid, was Start Talking consent form obtained?: Yes Was information provided regarding opioid addiction?: Yes
== END ==
LOC: PNWHC3 08:44
PROVIDERS: ATTEND Specialist
DX: K86.1 Other chronic pancreatitis (principal); C92.00 Acute myeloblastic leukemia, not having achieved remission; Z87.760 Personal history of (corrected) congenital diaphragmatic hernia or other congenital diaphragm malformations; Z91.018 Allergy to other foods; Z87.891 Personal history of nicotine dependence; Z88.6 Allergy status to analgesic agent; Z88.0 Allergy status to penicillin; Z88.1 Allergy status to other antibiotic agents; Z91.048 Other nonmedicinal substance allergy status
CPT/HCPCS: 99211

== ENCOUNTER 2025-04-05 06:42 | Day surgery (SDC) | payer MEDICARE ==
[2025-04-05 06:53] VITALS: RESP 14; TEMP 97
[2025-04-05] MEDS: IV FLUID CONTINUATION 1,000 ML IV ONE (06:55)
[2025-04-05] MEDS: LACTATED RINGERS 1,000 ML IV SCH (07:03)
[2025-04-05] MEDS ORDERED: methylPREDNISolone ACETATE 80 MG/ML 1 ML VIAL ONE (07:28)
[2025-04-05] MEDS ORDERED: IOPAMIDOL M200 10 ML VIAL ONE (07:28)
[2025-04-05] MEDS ORDERED: ROPIVACAINE 5 MG/ML 30 ML VIAL ONE (07:28)
[2025-04-05] MEDS ORDERED: fentaNYL (PF) 50 MCG/ML 2 ML AMP ONE (07:28)
--- NOTE | 2025-04-05 07:58 | P.PCN ---
Date of Procedure: 04/05/25 Procedure(s) Performed: PREOPERATIVE DIAGNOSIS: 1-chronic pancreatitis with intractable abdominal pain.2-AML leukemia POSTOPERATIVE DIAGNOSIS: Same as preop diagnosis PROCEDURE: Diagnostic celiac plexus block under fluoroscopy guidance (fluoroscopy images available in the audiology Department ) ANESTHESIA: Moderate sedation with Fentanyl 200 Mcg (sedation start time 07:28 end time 07:52 ) EBL: Minimal PROCEDURE INDICATION: The patient has a history of abdominal pain secondary to chronic pancreatitis that is non responsive to more conservative treatments. PROCEDURE DESCRIPTION: The patient was seen and identified in the preoperative area. Risks, benefits, complications, and alternatives were discussed with the patient. The patient agreed to proceed with the procedure and signed the consent. IV was started, and vital signs were stable. Patient was taken to the OR and time out was completed.The patient was placed in the prone position on procedure table and a pillow was placed under the abdomen to reduce lumbar lordosis. The lumbosacral area was prepped and draped in the usual sterile fashion. Critical pause was taken. Vital signs were closely monitored during the procedure. Conscious sedation was used during the procedure to decrease patient´s anxiety. The procedure was performed in a similar fashion on the right side and on the left side. Using anterior-posterior fluoroscopy, the L1 spinous process and vertebral body were identified. Then, the fluoroscope was turned obliquely until the transverse process of L1 vertebra was totally behind the L1 vertebral body. Skin was then marked and infiltrated with Lidocaine 1% subcutaneously with a 25-guage needle at the level of the L1 vertebral body. Subsequently, a 22-guage 7-inch /7-inch spinal needles was inserted and advanced toward anterior side of the L1 vertebral body under oblique fluoroscopic guidance and while keeping a ``tunnel´ view of the needle. Subsequently, 3 ml of the water soluble dye Omnipaque was injected under life fluoroscopy to confirm needle position. The spread of the dye along the anterior side of the L1 vertebral body was verified with AP and latter fluoroscopy. After satisfactory positioning of the needle and negative aspiration for CSF, blood, or any other contents, a total of 15 mL of 0.5% preservative-free Ropivacaine mixed with 40 mg of Depo-Medrol was injected with 5 ml increments and intermittent aspiration. Washout of the dye was seen and the needle was then withdrawn intact. Procedure was done bilaterally using the same technique on the right and left sides. A total of 30 ml of 0.5% preservative-free Ropivacaine was used during the procedure.At the end of the procedure, the operated areas were cleaned. Band-Aids were applied. COMPLICATIONS: None DISPOSITION / PLANS: The patient was placed in a supine position and transferred to the recovery area in a stable condition for observation and was discharged from the recovery room after meeting discharge criteria.Home discharge instructions given to the patient by the staff.The patient was reexamined prior to discharge. We will schedule a neurolytic block in one week if patient has more than 50% pain relief from this block.
[2025-04-05] MEDS: IV FLUID CONTINUATION 500 ML IV ONE (08:02)
[2025-04-05 08:19] VITALS: BP 117/67; PULSE 83
--- NOTE | 2025-04-05 08:31 | FL ---
EXAMINATION TYPE: FL guided pain mgmt statistic DATE OF EXAM: 04/05/2025 7:59 AM COMPARISON: Pre Operative Images if available both CT/MRI or plain film CLINICAL INDICATION: Male, 59 years old with history of CELIAC PLEXUS BLOCK; TECHNIQUE: FL guided pain mgmt statistic, multiple fluoroscopic images provided for procedure. DAP: 0.39797 mGym2 Gycm2 uGym2 cGycm2 or equivalent. FINDINGS: Fluoroscopic images during injection for pain management demonstrate multilevel degeneration changes throughout the spine. No evidence for fracture. No acute process identified. IMPRESSION: 1. No evidence for intraoperative complication. 2. Please see the operative/procedural note for further details. [facility], , 04/05/2025 8:29 AM
== END 2025-04-05 08:37 | disposition home or self-care (01) ==
LOC: ORPAIN 06:42
PROVIDERS: ATTEND Specialist
DX: K86.1 Other chronic pancreatitis (principal); R10.9 Unspecified abdominal pain; C92.00 Acute myeloblastic leukemia, not having achieved remission
CPT/HCPCS: 64530; J3010; J2795; Q9966; J1010; 99152

== ENCOUNTER → 2025-04-11 | Outpatient (CLI) | payer MEDICARE ==
[2025-04-11 15:31] LABS: Basophils # (A) 0.05 X 10*3/uL (0.00-0.10); Basophils % (A) 0.8 %; Eosinophils # (A) 0.08 X 10*3/uL (0.04-0.35); Eosinophils % (A) 1.3 %; HCT 40.5 % (39.6-50.0); HGB 14.0 g/dL (13.0-17.0); Immature Grans, Automated 0.30 %; Lymphocytes # (A) 2.36 X 10*3/uL (0.90-5.00); Lymphocytes % (A) 39.5 %; MCH 30.4 pg (27.0-32.0); MCHC 34.6 g/dL (32.0-37.0); MCV 88.0 FL (80.0-97.0); Monocytes # (A) 0.48 X 10*3/uL (0.20-1.00); Monocytes % (A) 8.0 %; NRBC Per 100 WBC 0 X 10*3/uL (0.00-0.01); Neutrophils # (A) 2.98 X 10*3/uL (1.80-7.70); Neutrophils % (A) 50.1 %; Platelet Count 221 X 10*3/uL (140-440); RBC 4.60 X 10*6/uL (4.40-5.60); RDW 12.8 % (11.5-14.5); WBC 5.97 X 10*3/uL (4.50-10.00)
[2025-04-11 15:57] LABS: Lipase 68 U/L (14-60)
[2025-04-11 15:58] LABS: ALT 26 U/L (10-49); AST 16 U/L (14-35); Albumin 4.3 g/dL (3.8-4.9); Albumin/Globulin Ratio 2.15 Ratio (1.60-3.17); Alkaline Phosphatase 99 U/L (41-126); Anion Gap 9.40 mmol/L (4.00-12.00); BUN/Creat Ratio 19.00 Ratio (12.00-20.00); Blood Urea Nitrogen 15.2 mg/dL (9.0-27.0); Calcium 9.0 mg/dL (8.7-10.3); Carbon Dioxide 26.6 mmol/L (21.6-31.8); Chloride 105 mmol/L (96-109); Globulin 2.0 g/dL (1.6-3.3); Glucose 83 mg/dL (70-110); Potassium 4.1 mmol/L (3.5-5.5); Sodium 141 mmol/L (135-145); Total Protein 6.3 g/dL (6.2-8.2); Vitamin B12 340.0 pg/mL (200.0-944.0)
[2025-04-11 16:00] LABS: Alpha Fetoprotein, Tumor Mkr 3.60 ng/mL (0.00-7.90); Carcinoembryonic Antigen <2.0 ng/mL (0.0-4.9)
[2025-04-11 20:21] LABS: Cyclic Citrull Pep IgG Unit <1.5 U/mL (<=3.9)
[2025-04-13 12:07] LABS: Free Kappa Lt Chain Qnt, Serum 1.10 mg/dL (0.33-1.94); Free Lambda Lt Chain Qnt, Seru 1.18 mg/dL (0.57-2.63)
== END | disposition home or self-care (01) ==
LOC: LABWHC1 11:02
PROVIDERS: ATTEND Family Medicine
DX: E55.9 Vitamin D deficiency, unspecified (principal); D51.9 Vitamin B12 deficiency anemia, unspecified; K85.90 Acute pancreatitis without necrosis or infection, unspecified; R09.1 Pleurisy; R97.8 Other abnormal tumor markers; R73.03 Prediabetes
CPT/HCPCS: 36415; 80053; 82105; 82306; 82378; 82607; 83690; 83883; 84165; 85025; 85652; 86038; 86140; 86200; 86334

== ENCOUNTER → 2025-04-15 | Outpatient (CLI) | payer MEDICARE ==
--- NOTE | 2025-04-16 02:37 | CT ---
EXAMINATION TYPE: CT chest w con DATE OF EXAM: 04/15/2025 10:47 AM COMPARISON: None. CLINICAL INDICATION: Male, 59 years old with history of R52 chronic pain R rib cage, pt suffering fro m rt sided pains TECHNIQUE: Axial images were obtained at 5 mm thick sections. Reconstructed images are reviewed on [employer] computer in the coronal plane. Contrast used:100 ml mL of Isovue 300 with IV Contrast, (none if empty) Oral contrast used: (none if empty) CT DLP: 451.4 mGycm, Automated exposure control for dose reduction was used. FINDINGS: Portion of the thyroid visualized is normal. No suspicious lung nodules or focal infiltrates are present. No enlarged mediastinal or hilar adenopathy is evident. The ascending aorta diameter at the level o f the main pulmonary artery is 3.4 cm. The main pulmonary artery diameter at the bifurcation is 2.1 cm. No significant coronary artery calcifications. No right rib fracture or abnormality identified Limited CT sections are obtained through the upper abdomen. Abdomen is essentially unremarkable. IMPRESSION: 1. No acute pulmonary process. 2. No suspicious right rib abnormality [facility], Workstation: [facility], 04/16/2025 2:35 AM
== END | disposition home or self-care (01) ==
LOC: RADCTMAIN 10:13
PROVIDERS: ATTEND Family Medicine
DX: R09.1 Pleurisy (principal)
CPT/HCPCS: 71260; Q9967